=== PATIENT | female | born 1970 ===

== ENCOUNTER 2020-10-11 14:59 | Outpatient (REF) | payer MEDICAID, SELFPAY ==
[2020-10-11 16:55] LABS: Hematocrit 41.7 % (37-47); Hemoglobin 13.8 g/dl (12.0-16.0); Mean Corpuscular HGB Conc 33.1 g/dl (31.0-35.0); Mean Corpuscular Hemoglobin 27.3 pg (27.0-33.0); Mean Corpuscular Volume 82.6 fL (80-98); Mean Platelet Volume 11.8 fL (9.4-12.3); Platelet Count 184 X10*3/uL (160-400); Red Blood Count 5.05 X10*6/uL (4.20-5.50); Red Cell Distribution Width 13.2 % (11.0-16.0); White Blood Count 11.1 X10*3/uL (4.8-10.8)
[2020-10-11 17:44] LABS: HCG Quantitative < 2 mIU/mL; TSH reflex Free T4 0.73 uIU/mL (0.32-4.0)
[2020-10-12 06:41] LABS: CT PCR NOT DETECTED (Not Detect.); NG PCR NOT DETECTED (Not Detect.)
[2020-10-15 08:36] LABS: HPV mRNA E6/E7 rflx Not Detected (Not Detected)
== END 2020-10-11 15:00 | disposition home or self-care (01) ==
LOC: HO.LAB 14:59
PROVIDERS: PCP Internal Medicine; Visit Provider Obstetrics & Gynecology
DX: Z01.411 Encounter for gynecological examination (general) (routine) with abnormal findings (principal); Z11.51 Encounter for screening for human papillomavirus (HPV); N92.1 Excessive and frequent menstruation with irregular cycle
CPT/HCPCS: 36415; 84443; 84702; 85027; 87491; 87591; 87624; 88142

== ENCOUNTER 2020-10-25 14:44 | Outpatient (REF) | payer MEDICAID, SELFPAY ==
--- NOTE | ~2020-10-25 | US_ITS ---
EXAMINATION: PELVIC ULTRASOUND CLINICAL INFORMATION: Abnormal uterine and vaginal bleeding. History of endometrial ablation 5 years ago. COMPARISON: Previous pelvic ultrasound January 2016. TECHNIQUE: Transabdominal and transvaginal pelvic ultrasound was performed. Transvaginal exam was performed for better visualization of the uterus and ovaries. FINDINGS: The uterus is anteverted and measures 10 x 5 x 5.9 cm in dimension. Uterine echotexture is slightly heterogeneous. No focal uterine lesion is seen. Endometrial thickness measures 1.5 cm. There is a 1.2 x 0.9 x 1.3 cm cyst seen in the endometrium. There are nabothian cysts in the cervix. The right ovary measures 2.8 x 2.1 x 1.9 cm. There is a 2.1 x 1.8 x 1.4 cm right ovarian cyst. The left ovary is not seen. There is no fluid in the pelvis. US/US pelvic and transvaginal IMPRESSION: Heterogeneous-appearing uterus. No focal uterine lesion seen. Endometrial thickness is upper normal measuring 1.5 cm. 1.2 x 0.9 x 1.3 cm cyst in the endometrium.
== END 2020-10-25 14:45 | disposition home or self-care (01) ==
LOC: HO.US 14:44
PROVIDERS: Visit Provider Obstetrics & Gynecology
DX: N93.9 Abnormal uterine and vaginal bleeding, unspecified (principal)
CPT/HCPCS: 76830; 76856

== ENCOUNTER 2020-11-21 13:42 | Outpatient (REF) | payer MEDICAID, SELFPAY | END 2020-11-21 13:43 | disposition home or self-care (01) | LOC: HO.LAB 13:42 | PROVIDERS: Visit Provider Obstetrics & Gynecology | DX: N92.1 Excessive and frequent menstruation with irregular cycle (principal) | CPT/HCPCS: 58100; 88305 ==

== ENCOUNTER 2020-12-14 14:00 | Outpatient (REF) | payer MEDICAID, SELFPAY | END 2020-12-14 14:01 | disposition home or self-care (01) | LOC: HO.LAB 14:00 | PROVIDERS: Visit Provider Obstetrics & Gynecology | DX: N92.1 Excessive and frequent menstruation with irregular cycle (principal); F17.210 Nicotine dependence, cigarettes, uncomplicated | CPT/HCPCS: 58100; 88305 ==

== ENCOUNTER → 2020-12-28 11:13 | Outpatient (BNVA) | payer MEDICAID, SELFPAY | PROVIDERS: Visit Provider Obstetrics & Gynecology ==

== ENCOUNTER → 2021-08-24 12:07 | Outpatient (BNVA) | payer MEDICAID, SELFPAY | PROVIDERS: PCP Internal Medicine; Referring Provider Internal Medicine; Visit Provider Physician Assistant Surgical | DX: Z13.89 Encounter for screening for other disorder (principal) ==

== ENCOUNTER → 2021-08-28 08:50 | Outpatient (BNVA) | payer MEDICAID, SELFPAY | PROVIDERS: PCP Internal Medicine; Referring Provider Internal Medicine; Visit Provider Physician Assistant Surgical | DX: Z13.89 Encounter for screening for other disorder (principal) ==

== ENCOUNTER 2021-09-03 | Outpatient (REF) | payer MEDICAID, SELFPAY ==
[2021-09-04 14:58] LABS: H Pylori Breath Test Negative (Negative)
== END 2021-09-03 00:01 | disposition home or self-care (01) ==
LOC: HO.LNP
PROVIDERS: Visit Provider Physician Assistant Surgical
DX: E66.9 Obesity, unspecified (principal)
CPT/HCPCS: 83013

== ENCOUNTER → 2021-09-03 13:41 | Outpatient (BNVA) | payer MEDICAID, SELFPAY | PROVIDERS: PCP Internal Medicine; Referring Provider Internal Medicine; Visit Provider Physician Assistant Surgical | DX: E66.9 Obesity, unspecified (principal); Z11.0 Encounter for screening for intestinal infectious diseases; Z68.33 Body mass index [BMI] 33.0-33.9, adult | CPT/HCPCS: 83013; 99202; 99211 ==

== ENCOUNTER 2021-09-06 10:13 | Outpatient (REF) | payer MEDICAID, SELFPAY ==
--- NOTE | ~2021-09-06 | XR_ITS ---
EXAMINATION: XR CHEST CLINICAL INFORMATION: Obesity COMPARISON: Chest x-ray 02/14/2018 TECHNIQUE: 2 views of the chest were obtained. FINDINGS: Cardiac silhouette is normal in size. Lungs are well aerated. There is no lobar consolidation. No pleural effusion or pneumothorax. Surgical clips in the right axilla. Mild degenerative changes of the spine. XR/XR chest 2V IMPRESSION: No acute pulmonary pathology.
[2021-09-06 10:56] LABS: MANUAL DIFF FLAG NO
--- NOTE | 2021-09-06 11:04 | ECG_ITS ---
Test Reason : OBESITY Blood Pressure : / mmHG Vent. Rate : 065 BPM Atrial Rate : 065 BPM P-R Int : 150 ms QRS Dur : 070 ms QT Int : 364 ms P-R-T Axes : 057 042 039 degrees QTc Int : 378 ms Normal sinus rhythm Normal ECG When compared with ECG of 16-MAR-2007 10:42, No significant change was found Referred By: Des Fall Electronically Signed By:CLARISSA BROTHERS
[2021-09-06 11:36] LABS: Basophils Percent Auto 0.3 % (0-2); Eosinophils Absolute Auto 0.1 X10*3/uL (0.0-0.4); Eosinophils Percent Auto 1.2 % (0-4); Hematocrit 45.1 % (37.0-47.0); Hemoglobin 14.5 g/dl (12.0-16.0); Imm Gran Abs Auto 0.03 X10*3/uL (0.00-0.03); Imm Gran Pct Auto 0.3 % (0.0-0.4); Lymphocytes Percent Auto 20.8 % (20-40); Mean Corpuscular HGB Conc 32.2 g/dl (31.0-35.0); Mean Corpuscular Volume 83.8 fL (80.0-98.0); Mean Platelet Volume 11.1 fL (9.4-12.3); Monocytes Absolute Auto 0.7 X10*3/uL (0.1-1.2); Monocytes Percent Auto 7.5 % (2-11); Neutrophils Absolute Auto 6.8 x10*3/uL (2.0-8.3); Neutrophils Percent Auto 69.9 % (45-73); Platelet Count 206 X10*3/uL (160-400); Red Blood Count 5.38 X10*6/uL (4.20-5.50); Red Cell Distribution Width 13.1 % (11.0-16.0); White Blood Count 9.8 X10*3/uL (4.8-10.8)
[2021-09-06 11:41] LABS: Estimated Average Glucose 212 mg/dL
[2021-09-06 11:46] LABS: Alanine Aminotransferase 32 U/L (0-31); Albumin Level 4.2 g/dL (3.5-5.0); Alkaline Phosphatase 107 U/L (39-117); Anion Gap 11 (12-20); Aspartate Amino Transferase 24 U/L (5-31); Bilirubin Total 0.4 mg/dL (0.0-1.0); Blood Urea Nitrogen 13 mg/dL (9-16); C Reactive Protein 0.39 mg/dL (< or = 0.50); Calcium 10.1 mg/dL (8.4-10.2); Carbon Dioxide 31 mmol/L (22-29); Chloride 103 mmol/L (96-108); Cholesterol 197 mg/dL; Estimated Glomerular Filt Rate > 60; Glucose Random 127 mg/dL (60-115); HDL Cholesterol 52 mg/dL; Iron 97 mcg/dL (30-160); LDL Cholesterol Calculated 123 mg/dl; Percent Iron Saturation 27 % (15-50); Potassium 4.5 mmol/L (3.3-5.1); Sodium 140 mmol/L (135-145); Total Iron Binding Capacity 355 mcg/dL (228-428); Triglycerides 114 mg/dL; Unsaturated Iron Binding 258 ug/dL
[2021-09-06 12:03] LABS: Ferritin 174 ng/mL (10-250); Insulin 10 uU/mL (2-29); TSH reflex Free T4 0.69 uIU/mL (0.32-4.0); Vitamin D 25-OH Total 24.3 ng/mL (>30)
[2021-09-06 12:17] LABS: Folate 14.4 ng/mL (> or = 4.0); Vitamin B12 417 pg/mL (200-900)
[2021-09-07 13:02] LABS: Calcium (PTHI) 9.8 mg/dL (8.6-10.4); PTHI 54 pg/mL (16-77)
[2021-09-11 06:11] LABS: Zinc 88 mcg/dL (60-130)
[2021-09-12 09:57] LABS: Vitamin A 48 mcg/dL (38-98)
[2021-09-12 17:01] LABS: Vitamin B1 8 nmol/L (8-30)
== END 2021-09-06 10:14 | disposition home or self-care (01) ==
LOC: HO.XRAY 10:13
PROVIDERS: Visit Provider Physician Assistant Surgical
DX: E66.9 Obesity, unspecified (principal)
CPT/HCPCS: 36415; 71046; 80053; 80061; 82306; 82607; 82728; 82746; 83036; 83525; 83540; 83970; 84425; 84443; 84590; 84630; 85025; 86140; 93005

== ENCOUNTER → 2021-09-11 10:07 | Outpatient (BNVA) | payer OTHER, SELFPAY | PROVIDERS: PCP Internal Medicine; Visit Provider Counselor Mental Health | DX: F33.1 Major depressive disorder, recurrent, moderate (principal); F41.1 Generalized anxiety disorder | CPT/HCPCS: 90791 ==

== ENCOUNTER → 2021-09-24 08:18 | Outpatient (BNVA) | payer OTHER, SELFPAY | PROVIDERS: PCP Internal Medicine; Visit Provider Surgery | DX: Z13.89 Encounter for screening for other disorder (principal) ==

== ENCOUNTER → 2021-10-01 12:42 | Outpatient (BNVA) | payer OTHER, SELFPAY | PROVIDERS: PCP Internal Medicine; Visit Provider Counselor Mental Health | DX: F33.1 Major depressive disorder, recurrent, moderate (principal); F41.1 Generalized anxiety disorder | CPT/HCPCS: 90834 ==

== ENCOUNTER → 2021-10-09 09:35 | Outpatient (BNVA) | payer MEDICAID, SELFPAY | PROVIDERS: PCP Internal Medicine; Referring Provider Internal Medicine; Visit Provider Dietitian, Registered | DX: E66.9 Obesity, unspecified (principal); Z68.34 Body mass index [BMI] 34.0-34.9, adult | CPT/HCPCS: 97802 ==

== ENCOUNTER → 2021-10-15 13:38 | Outpatient (BNVA) | payer OTHER, MEDICAID, SELFPAY | PROVIDERS: PCP Internal Medicine; Referring Provider Internal Medicine; Visit Provider Counselor Mental Health | DX: F33.1 Major depressive disorder, recurrent, moderate (principal); F41.1 Generalized anxiety disorder; F50.81 Binge eating disorder | CPT/HCPCS: 90834 ==

== ENCOUNTER 2021-10-22 07:56 | Outpatient (REF) | payer MEDICAID, SELFPAY ==
--- NOTE | ~2021-10-22 | US_ITS ---
EXAMINATION: US COMPLETE ABDOMEN WITH LIVER ELASTOGRAPHY CLINICAL INFORMATION: Obesity COMPARISON: Previous CT of the abdomen and pelvis December 2017 and abdominal ultrasound February 2015 TECHNIQUE: Real-time imaging of the abdominal viscera. Noninvasive ultrasound liver fibrosis assessment is performed using Ramon ElastPQ point quantification shear wave elastography (2D-SWE) with a C5-2 MHz transducer. Multiple elastography samples are obtained. FINDINGS: PANCREAS: Normal. The visualized pancreatic head and body are normal in appearance. The remainder of the pancreas is obscured from visualization by the overlying bowel gas. ABDOMINAL AORTA: The proximal, middle, and distal aortic segments are normal in caliber. INFERIOR VENA CAVA: Visualized portions are normal. LIVER: Liver echotexture is increased The liver demonstrates normal size, and contour. No focal lesion or intrahepatic biliary duct dilatation. The right lobe measures 16 cm in length. The left lobe measures 15 cm in length. Portal flow is normal/hepatopedal Shear wave liver elastography median stiffness is 1.7 m/s (reference: normal median stiffness is 1.3 m/s or less). IQR/median stiffness to assess sampling precision is 0.06 (reference: good quality data set is IQR/median stiffness of 0.15 or less). GALLBLADDER: Wall echo shadow complex suggestive of contracted gallbladder filled with gallstones COMMON BILE DUCT: Normal in caliber measuring 0.3 cm in diameter. RIGHT KIDNEY: Normal. No hydronephrosis. No renal calculi or focal parenchymal lesions. The kidney measures 11 cm in maximum dimension. LEFT KIDNEY: 1.2 cm cyst in the upper to midpole. No hydronephrosis. No renal calculi or mass. The kidney measures 11.4 cm in maximum dimension. SPLEEN: Normal. The spleen measures 10.3 cm in maximum dimension. FREE FLUID: None. US/US abdomen comp w elastography IMPRESSION: 1. Impression: Echogenic liver. While this shadow complex suggestive of a gallbladder filled with gallstones. Small left renal cyst. 2. Liver elastography: Adequate liver sampling. Slightly elevated liver stiffness. Suggestive of compensated advanced chronic liver disease but need further test for confirmation. REFERENCE: Society of Radiologists in Ultrasound Liver Stiffness Thresholds (2020): LIVER STIFFNESS THRESHOLDS: *Liver Stiffness equal or less than 1.3 m/s: High probability of being normal. *Liver Stiffness less than 1.7 m/s: In the absence of other known clinical signs, rules out compensated advanced chronic liver disease. *Liver Stiffness 1.7-2.1 m/s: Suggestive of compensated advanced chronic liver disease but need further test for confirmation. *Liver Stiffness over 2.1 m/s: Rules in compensated advanced chronic liver disease. *Liver Stiffness over 2.4 m/s: Suggestive of clinically significant portal hypertension. QUALITY OF DATA SET: *IQR/Median value equal or less than 0.15 implies a quality data set. *IQR/Median value over 0.15 implies a poor quality data set. SIGNIFICANT CHANGE FROM PRIOR EXAM: Significant change if liver stiffness measurement is 10% or greater from prior exam. OTHER CONSIDERATIONS: The stage of liver fibrosis may be overestimated in the setting of acute hepatitis, liver inflammation, elevated liver function tests, hepatic vascular congestion, obstructive cholestasis, non-fasting state, and infiltrative diseases such as amyloidosis and lymphoma. In some patients with NAFLD, the liver stiffness thresholds for compensated advanced chronic liver disease may be lower. In causes other than viral hepatitis and NAFLD, liver stiffness thresholds are not well established.
--- NOTE | ~2021-10-22 | FL_ITS ---
EXAMINATION: XR FLUOROSCOPY UPPER GI WITH AIR CLINICAL INFORMATION: Preop. Abdominal pain. COMPARISON: None TECHNIQUE: Routine double-contrast upper GI exam was performed in upright and lying position. FINDINGS: Following oral administration of thick barium and effervescent granules, there is normal propagation of bolus from the oral cavity through the pharynx, esophagus into stomach without any evidence of obstruction, narrowing or stricture. On placing patient supine and prone lying, the course, caliber and peristalsis of the stomach is normal. The mucosal pattern of the stomach and the duodenum is normal. There is mild gastroesophageal reflux without hiatal hernia. FLUOROSCOPY TIME: 2.4 minutes DOSE AREA PRODUCT: 39.735 uGy-m2 (microgray-meter squared) FL/FL upper GI w air IMPRESSION: Mild gastroesophageal reflux without hiatal hernia. The rest of the upper GI exam is unremarkable.
== END 2021-10-22 07:57 | disposition home or self-care (01) ==
LOC: HO.US 07:56
PROVIDERS: Visit Provider Surgery
DX: E66.9 Obesity, unspecified (principal)
CPT/HCPCS: 74246; 76705; 76981

== ENCOUNTER → 2021-10-29 12:47 | Outpatient (BNVA) | payer OTHER, MEDICAID, SELFPAY | PROVIDERS: PCP Internal Medicine; Visit Provider Counselor Mental Health | DX: F33.1 Major depressive disorder, recurrent, moderate (principal); F41.1 Generalized anxiety disorder | CPT/HCPCS: 90834 ==

== ENCOUNTER 2021-11-06 14:36 | Outpatient (REF) | payer MEDICAID, SELFPAY ==
[2021-11-06 15:20] LABS: MANUAL DIFF FLAG NO
[2021-11-06 15:41] LABS: Basophils Percent Auto 0.4 % (0-2); Eosinophils Absolute Auto 0.2 X10*3/uL (0.0-0.4); Eosinophils Percent Auto 1.7 % (0-4); Hematocrit 43.4 % (37.0-47.0); Hemoglobin 14.3 g/dl (12.0-16.0); Imm Gran Abs Auto 0.03 X10*3/uL (0.00-0.03); Imm Gran Pct Auto 0.3 % (0.0-0.4); Lymphocytes Absolute Auto 1.9 X10*3/uL (1.2-4.9); Lymphocytes Percent Auto 20.6 % (20-40); Mean Corpuscular HGB Conc 32.9 g/dl (31.0-35.0); Mean Corpuscular Hemoglobin 27.7 pg (27.0-33.0); Mean Corpuscular Volume 83.9 fL (80.0-98.0); Mean Platelet Volume 11.4 fL (9.4-12.3); Monocytes Absolute Auto 0.8 X10*3/uL (0.1-1.2); Monocytes Percent Auto 8.8 % (2-11); Neutrophils Absolute Auto 6.4 x10*3/uL (2.0-8.3); Neutrophils Percent Auto 68.2 % (45-73); Platelet Count 170 X10*3/uL (160-400); Red Blood Count 5.17 X10*6/uL (4.20-5.50); Red Cell Distribution Width 13.3 % (11.0-16.0); White Blood Count 9.3 X10*3/uL (4.8-10.8)
[2021-11-06 15:48] LABS: Prothrombin Time 11.6 SEC (10.0-13.1)
[2021-11-06 15:51] LABS: Partial Thromboplastin Time 37.2 SEC (24.1-38.0)
[2021-11-06 16:05] LABS: Alanine Aminotransferase 34 U/L (0-31); Albumin Level 4.2 g/dL (3.5-5.0); Alkaline Phosphatase 100 U/L (39-117); Anion Gap 10 (12-20); Aspartate Amino Transferase 30 U/L (5-31); Bilirubin Total 0.4 mg/dL (0.0-1.0); Blood Urea Nitrogen 9 mg/dL (9-16); Calcium 9.1 mg/dL (8.4-10.2); Carbon Dioxide 29 mmol/L (22-29); Chloride 108 mmol/L (96-108); Estimated Glomerular Filt Rate > 60; Glucose Random 113 mg/dL (60-115); Potassium 4.4 mmol/L (3.3-5.1); Sodium 143 mmol/L (135-145); Total Protein 6.7 g/dL (6.5-8.0)
== END 2021-11-06 14:37 | disposition home or self-care (01) ==
LOC: HO.LAB 14:36
PROVIDERS: Visit Provider Surgery
DX: K80.20 Calculus of gallbladder without cholecystitis without obstruction (principal)
CPT/HCPCS: 36415; 80053; 85025; 85610; 85730

== ENCOUNTER 2021-11-07 08:30 | Day surgery (SDC) | payer MEDICAID, SELFPAY ==
[2021-11-07] VITALS (15 sets, daily range): BP systolic 120–161; BP diastolic 69–93; PULSE 62–81; RESP 15–22; TEMP 35.9–36.5; O2SAT 90–97; BMI 33.0
--- NOTE | 2021-11-07 08:44 | HO.ANESPROP2 ---
HPI - Anesthesia Eval Consult details Narrative: 51 yo female patient for laparoscopic cholecystectomy PMFSH Active Problems Active Problems: All Active Problems (Updated 11/05/21 @ 13:13 by Donavan Yao MD) Cholelithiasis (Acute) BMI 33.0-33.9,adult (Acute) Asthma (Acute) Hyperlipidemia (Acute) Breast cancer (Acute) Depression (Acute) HTN (hypertension) (Acute) BMI 34.0-34.9,adult (Acute) Generalized anxiety disorder (Acute) Major depressive disorder, recurrent, moderate (Acute) Diabetes (Acute) Obesity (BMI 30-39.9) (Acute) Metrorrhagia (Acute) Well woman exam (Acute) Denies CIRILO but snores. No sleep study Past Medical History Medical History Anxiety Family History Family History Mother Diabetes Heart problem Father Diabetes Son Diabetes Family history of problems with anesthesia: No Surgical History Surgical History (Updated 11/07/21 @ 09:38 by Ester Crowell MD) History of dilatation and curettage Tubal ligation status History of Problems with Anesthesia: No Social History Social History (Updated 11/07/21 @ 08:56 by Ester Crowell MD) Alcohol intake: former Patient Tobacco Use Status: Current everyday Tobacco user Tobacco use type: Cigarette Cigarettes Per Day: 4 Smoked in Last 30 Days: Yes Use of substances other than those prescribed or required for medical reasons: No Substance Use Type: Marijuana Are you DNR?: No Advance Directives: No Advance Directives Information Provided: Yes Recently lost weight without trying: Yes How much weight loss: 2-13 pounds Nutrition Risks: No Nutritional Risk Patient : No Gender identity: Female Meds Allergies Allergy/AdvReac Type Severity Reaction Status Date / Time No Known Allergies Allergy Verified 11/05/21 13:13 Home Medications Medication Instructions Recorded Confirmed Last Taken Type amlodipine 5 mg tablet 5 mg PO DAILY 10/11/20 11/05/21 Unknown History metformin 500 mg tablet 500 mg PO BID 10/11/20 11/05/21 Unknown History sertraline 100 mg tablet 100 mg PO DAILY 10/11/20 11/05/21 Unknown History fluticasone propionate 250 1 inh inhalation Q12H 09/24/21 11/05/21 Unknown History mcg/actuation blister powder for inhalation (Flovent Diskus) Exam Exam Date and Time: November 07, 2021 0844 Height,Weight and Vital Signs: Height 5 ft 2 in Weight 82.1 kg Vital Signs Temp Pulse Resp BP Pulse Ox O2 Del Method 11/07/21 09:13 96.7 F L 72 16 136/84 96 Room Air Pertinent Lab Results Pertinent Lab Results: Laboratory Tests 11/06/21 15:15 Blood Type O Positive Antibody Screen NEGATIVE POC 136 Airway Mallampati Class: II TM Dist: >3cm Neck ROM: Full Denture: Upper Loose/Missing/Broken Teeth: Yes (Only 5 teeth bottom- a couple broken) Heart: RRR Lungs: CTAB. No wheezes Assessment and Plan Assessment Anesthesia Assessment: Anesthesia Plan Discussed and Chart Reviewed Final Anesthetic Review Family History of Problems with Anesthesia: No History of Problems with Anesthesia: No NPO: Yes ASA Class: III Final Preanesthetic Review: No Changes in Pt Med Stat, Meds/Allgs Chart Reviewed, Consent Obtained/Reviewed and Anes Risks/Benef Reviewed Patient Risk: Intermediate Procedure Risk: Low Assessment/Block/Sedation in SS: Assess/Block/Sedation-SS Anesthetic Plan Anesthetic Plan: GA Disposition: Standard PACU
[2021-11-07] MEDS: Lactated Ringers 1,000 ML 100 ML IVCONT (09:19)
[2021-11-07 09:42] LABS: Glucose, Whole Blood 136 mg/dL (60-115)
--- NOTE | 2021-11-07 11:21 | MHC.SHP ---
Pre-Procedural Eval Section A Date of Service: 11/07/21 The patient is an INPATIENT: No The History & Physical has been completed within 30 days and I have reviewed it.: Yes Section B Chief Complaint: cholecystitis Relevant Family History (Specify if Yes): No Relevant Social History: None Present Medications: None Medical History: No relevant PMH History of Previous Operations: No relevant previous surgery Allergies: Allergies Allergy/AdvReac Type Severity Reaction Status Date / Time No Known Allergies Allergy Verified 11/05/21 13:13 Review of Systems Sugical H&P ROS: Negative: Constitution, Cardiovascular, Respiratory, Neurological, Psychiatric, Hem-Onc, Allergic/Immunologic, Genitourinary, Musculoskeletal, Integumentary, Endocrine and Eyes/Ears/Nose/Throat and Yes, Specify: Gastrointestinal (right side abdominal pain) Exam Surgical H&P Exam: Normal: HEENT, Normal: Heart, Normal: Lungs, Normal: Extremities, Normal: Abdomen, Normal: Skin and Normal: Neurological Plan Diagnosis/Plan: Unchanged (Laparoscopic cholecystectomy for cholelithiasis. Risks of CBD injury, bile leak, CBD stones, bleeding and infection were discussed with the patient and she is in agreement with the plan.) I have reviewed the history and physical and performed a pertinent physical examination on my patient. No changes have occurred unless specified.
--- NOTE | 2021-11-07 11:22 | PM.OP ---
Brief Operative Note Date of Service: 11/07/21 Pre-op diagnosis: Cholelithiasis Post-op diagnosis: same Procedure: PROCEDURE DATE: 11/07/2021 PREOPERATIVE DIAGNOSIS: Symptomatic cholelithiasis, obesity and associated comorbidities including hypertension, hyperlipidemia, anxiety, depression, non-insulin dependent diabetes, asthma POSTOPERATIVE DIAGNOSIS: Same as above. PROCEDURE: Laparoscopic cholecystectomy Surgeon: Ubaldo Yao M.D., Ph.D. Wildlife Conservation Officer: Torri Wick PA-C Anesthesia: General endotracheal anesthesia Estimated blood loss: Minimal FINDINGS AND PROCEDURE: OPERATIVE INDICATIONS: The patient is a 51 year old female known to me who was initially seen in my office for evaluation for refractory morbid obesity. During the preoperative workup, the patient was found to have extensive cholelithiasis which appears to be symptomatic. I recommended cholecystectomy. Risks and complications of the surgery were discussed with the patient in advance, particularly the postoperative bleeding, infection, DVT or PE, bile leak, major bile duct injury that may require additional surgical intervention, cardiac, pulmonary or renal complications among others. The patient understood the risks and was in agreement with the plan. PROCEDURE: After informed consent was obtained by the patient, the patient was transferred to the Operating Room and was placed in the supine position. The patient was given preoperative antibiotics and after successful induction of general anesthesia, pneumatic compression devices were placed. The patient was then prepped and draped in the usual sterile manner and abdominal access was established with Bertram technique. The abdomen was insufflated with C02 to a pressure of 15 mmHg. A 5 mm Versi-step port was placed, slightly to the right and superior from the umbilicus. The 5 mm camera was introduced. We inspected the area where the port had been placed and there was no injury. The patient was then placed initially in a steep reverse Trendelenburg position and three additional ports were placed, specifically a 12 mm Versi-step port just to the right of the midline below the xiphoid process and two 5 mm Versi-step ports at the right upper quadrant and right flank. 1% lidocaine was used to infiltrate all skin incisions and fascial defects. At that point the patient was placed in a steep reverse Trendelenburg position tilted to the left side. The gallbladder was retracted cephalad and laterally. ? PLEASE REVIEW TO INCLUDE THIS SENTENCE: There were adhesions between the omentum and the gallbladder wall that were taken down. The peritoneal attachments of the gallbladder at the triangle of Calot posteriorly and anteriorly were taken down. The cystic duct and artery were both seen. They were completely dissected free, skeletonized all the way to the infundibulum of the gallbladder . In a similar fashion we also cleaned the liver bed just behind the cystic artery to make sure there was no additional structures in this area. Once we confirmed that both structures were entering into the gallbladder and there were no other structures in the area, they were both clipped with two clips proximally, one distally and were cut in- between. We then using the electrocautery we slowly took down the gallbladder from the liver bed. Small areas of bleeding from the liver parenchyma were controlled with the cautery. After the gallbladder was completely detached from the liver bed, it was placed in an EndoCatch bag and was removed without difficulty from the xiphoid port. We then inspected the clips at the cystic duct and artery and were both in place. There was no active bleeding from the liver bed. A smal piece of Surgicel was placed in the liver bed and will be left there. At that point the patient was placed in supine. position, we deflated the abdomen and we removed all ports under direct vision and no bleeding was noted from any of the port sites. The fascia of the 12 mm port was closed using a #1 Polysorb suture. 60cc 0.5% Marcaine and 1% Lidocaine plain were used to infiltrate the fascial closure as well as all skin incisions. The wounds were irrigated with saline mixed with antibiotic solution and then the skin was closed with 4-0 Maxon subcuticular sutures antibiotic-coated. Steri-strips and OpSites were used to cover all incisions. The patient extubated and was transferred in stable condition to the Recovery Room for further care. I was present and performed all steps of the procedure. Ms. Wick was the sampler first. There were no residents to assist with this case. Ubaldo Yao M.D., Ph.D., F.A.C.S. Surgeon: Donavan Yao MD Anesthesia: GETA, local and other (TAP block) Was an Wildlife Conservation Officer used for this Procedure?: No Wildlife Conservation Officer: Torri Wick Estimated blood loss (mL): 10 Urine output (mL): 0 (No [place] to record) Pathology: other (Gallbladder) Condition: stable Disposition: PACU
[2021-11-07] MEDS: oxyCODONE HCl Immed Release 5 MG TABLET PO (14:05)
[2021-11-07] MEDS: fentaNYL citrate/PF 100 MCG/2 ML VIAL 25 MCG IVPUSH ×2 (14:48→14:55)
== END 2021-11-07 16:16 | disposition home or self-care (01) ==
PROVIDERS: Visit Provider Surgery
PROC: 0FT44ZZ Resection of Gallbladder, Percutaneous Endoscopic Approach (ICD-10-PCS; CPT 47562; principal; 2021-11-07 10:10)
DX: K80.10 Calculus of gallbladder with chronic cholecystitis without obstruction (principal); K82.8 Other specified diseases of gallbladder; I10 Essential (primary) hypertension; E78.5 Hyperlipidemia, unspecified; J45.909 Unspecified asthma, uncomplicated; F41.8 Other specified anxiety disorders; Z79.51 Long term (current) use of inhaled steroids; Z79.899 Other long term (current) drug therapy; Z85.3 Personal history of malignant neoplasm of breast; F17.210 Nicotine dependence, cigarettes, uncomplicated; F12.90 Cannabis use, unspecified, uncomplicated; Z98.51 Tubal ligation status
CPT/HCPCS: 47562; 36415; 80053; 82947; 85025; 85610; 85730; 86850; 86900; 86901; 88304; C9088; J0690; J1100; J2250; J2405; J2550; J2795; J3010

== ENCOUNTER → 2021-11-20 16:00 | Outpatient (BNVA) | payer MEDICAID, SELFPAY | PROVIDERS: Visit Provider Dietitian, Registered | DX: E66.9 Obesity, unspecified (principal); Z71.3 Dietary counseling and surveillance | CPT/HCPCS: 97803 ==

== ENCOUNTER → 2022-09-18 10:42 | Outpatient (BNVA) | payer MEDICAID, SELFPAY | PROVIDERS: PCP Internal Medicine; Visit Provider Nurse Practitioner Family | DX: Z12.11 Encounter for screening for malignant neoplasm of colon (principal); K21.9 Gastro-esophageal reflux disease without esophagitis; K59.1 Functional diarrhea; R14.0 Abdominal distension (gaseous) | CPT/HCPCS: 99202 ==

== ENCOUNTER → 2022-10-21 13:36 | Outpatient (BNVA) | payer MEDICAID, SELFPAY | PROVIDERS: PCP Internal Medicine; Visit Provider Obstetrics & Gynecology ==

== ENCOUNTER → 2022-10-25 11:43 | Outpatient (BNVA) | payer MEDICAID, SELFPAY | PROVIDERS: PCP Internal Medicine; Visit Provider Nurse Practitioner Family | DX: Z12.11 Encounter for screening for malignant neoplasm of colon (principal); K21.9 Gastro-esophageal reflux disease without esophagitis; K59.1 Functional diarrhea; R14.0 Abdominal distension (gaseous) | CPT/HCPCS: 99212 ==

== ENCOUNTER 2022-11-13 23:01 | Emergency (ER) | payer MEDICAID, SELFPAY ==
[2022-11-13 23:14] VITALS: BP 149/105; PULSE 107; RESP 22; TEMP 36.8; O2SAT 98; BMI 29.4
--- NOTE | 2022-11-13 23:33 | ED.ABDPAIN ---
HPI - Abdominal Pain General Chief Complaint: Abdominal Pain Stated Complaint: vomiting Time Seen by Provider: 11/13/22 23:29 Source: patient Mode of arrival: ambulatory Limitations: no limitations History of Present Illness HPI narrative: Patient with history of GERD s/p cholecystectomy came here for nausea vomiting just prior to arrival vomited multiple times bilious had 1 loose bowel movement in the ER complaining of diffuse upper abdominal pain no fever no chills no urinary symptoms blood pressure on arrival was 149/105 pulse rate 107 patient forgot her blood pressure. medication today Related Data Home Medications Medication Instructions Recorded Confirmed amlodipine 5 mg tablet 5 mg PO DAILY 10/11/20 11/05/21 metformin 500 mg tablet 500 mg PO BID 10/11/20 11/05/21 sertraline 100 mg tablet 100 mg PO DAILY 10/11/20 11/05/21 fluticasone propionate 250 1 inh inhalation Q12H 09/24/21 11/05/21 mcg/actuation blister powder for inhalation (Flovent Diskus) Previous Rx's Medication Instructions Recorded cholecalciferol (vitamin D3) 125 125 mcg PO DAILY #30 caps 09/06/21 mcg (5,000 unit) capsule bisacodyl 5 mg tablet,delayed 10 mg PO ONCE 1 day #2 tabs 09/18/22 release (Dulcolax (bisacodyl)) omeprazole 20 mg capsule,delayed 20 mg PO DAILY #30 caps 09/18/22 release polyethylene glycol 3350 17 238 g PO ONCE #238 grams 09/18/22 gram/dose oral powder (Miralax) simethicone 125 mg capsule (Gas 125 mg PO TID-QID PRN abdominal 09/18/22 Relief (simethicone)) distention #120 caps ondansetron 4 mg disintegrating 4 mg PO Q6-8H PRN nausea and 11/14/22 tablet vomiting #7 tabs Allergies Allergy/AdvReac Type Severity Reaction Status Date / Time No Known Allergies Allergy Verified 10/25/22 11:47 Review of Systems Review of Systems Yes all other systems are reviewed and are negative PENDING SALE TO [facility] Past Medical History Medical History Anxiety Asthma Breast cancer Depression HTN (hypertension) Hyperlipidemia Surgical History History of dilatation and curettage Hx laparoscopic cholecystectomy Tubal ligation status Family History Family History Mother Diabetes Heart problem Father Diabetes Son Diabetes Social History Social History Alcohol intake: former Patient Tobacco Use Status: Current everyday Tobacco user Tobacco use type: Cigarette Cigarettes Per Day: 1 Substance Use Type: Marijuana Advance Directives: No Advance Directives Information Provided: No Gender identity: Female Physical Exam ED Vital Signs: Vital Signs - 24 hr 11/13/22 23:14 11/13/22 23:56 Temperature 98.3 F 98.2 F Pulse Rate 107 H 91 Respiratory Rate 22 H 16 Blood Pressure 149/105 H 118/55 L Pulse Oximetry 98 956 H Oxygen Delivery Method Room Air Room Air BMI result Body Mass Index 29.4 Appearance: Alert. Oriented X3. No acute distress. Eyes: PERRLA, No Nystagmus ENT: Pharynx normal. Oral Mucosa moist Neck: Normal inspection. Neck supple. CVS: Normal heart rate and rhythm. Pulses normal. Respiratory: No respiratory distress. Equal air entry bilateral, no wheezing/rales/rhonchi Abdomen: Soft, diffuse upper abdominal tenderness no rebound tenderness or guarding, Bowel sounds are present, no mass palpable, no CVA tenderness Skin: Skin warm and dry. Normal skin color. Normal skin turgor. Extremities: No lower extremity edema. No calf tenderness Neuro: Oriented X 3. No motor deficit. No sensory deficit.No cerebellar signs , cranial nerves II-XII intact Medical Decision Making Medical Decision Making MDM Narrative: Patient with nonspecific abdominal pain CT scan negative for acute labs are stable likely gastritis/viral syndrome taking p.o. fluids discharge patient home Differential Diagnosis Acute pancreatitis/SBO/diverticulitis/gastroenteritis Lab Data [facility] Lab Attestation statement: I reviewed the patient's lab results. 11/13/22 23:31 11/13/22 23:31 Labs: Lab Results 11/13/22 11/13/22 11/13/22 Range/Units 23:31 23:31 23:59 WBC 13.2 H (4.8-10.8) X10*3/uL RBC 6.00 H (4.20-5.50) X10*6/uL Hgb 16.0 (12.0-16.0) g/dl Hct 48.4 H (37.0-47.0) % MCV 80.7 (80.0-98.0) fL MCH 26.7 L (27.0-33.0) pg MCHC 33.1 (31.0-35.0) g/dl RDW 13.1 (11.0-16.0) % Plt Count 184 (160-400) X10*3/uL MPV 10.7 (9.4-12.3) fL Absolute Nucleated RBC 0.000 (0.0-0.012) X10*3/uL Nucleated RBC % (auto) 0.0 (0.0-0.2) /100WBC Sodium 145 (135-145) mmol/L Potassium 3.4 D (3.3-5.1) mmol/L Chloride 106 (96-108) mmol/L Carbon Dioxide 27 (22-29) mmol/L Anion Gap 15 (12-20) BUN 15 (9-16) mg/dL Creatinine 0.98 (0.5-1.4) mg/dL Estim Creat Clear Calc 63.5 Estimated GFR 60 Random Glucose 151 H (60-115) mg/dL Calcium 10.7 H D (8.4-10.2) mg/dL Total Bilirubin 0.6 (0.0-1.0) mg/dL Direct Bilirubin 0.2 (0.0-0.5) mg/dL AST 17 (5-31) U/L ALT 13 (0-31) U/L Alkaline Phosphatase 106 (39-117) U/L Total Protein 8.2 H (6.5-8.0) g/dL Albumin 4.7 (3.5-5.0) g/dL Lipase 43 (8-78) U/L Urine Color Dark Yellow Urine Appearance Turbid Urine pH 5.0 (5.0-9.0) Ur Specific [place] >= 1.030 H (1.005-1.025) Urine Protein 30 (1+) H (Neg-Trace) mg/dL Urine Glucose (UA) Negative (Negative) mg/dL Urine Ketones 15 (Negative) mg/dL Urine Blood Negative (Negative) Urine Nitrite Negative (Negative) Ur Leukocyte Esterase Trace H (Negative) Urine RBC 3-5 H (0-2) /HPF Urine WBC 0-5 (0-5) /HPF Ur Squamous Epith Cells 6-10 (0-2) /HPF Other Crystals Present Urine Bacteria 3+ (None Seen) Hyaline Casts 0-2 (0-2) /LPF Urine Test (NEGATIVE) 11/13/22 Range/Units 23:59 WBC (4.8-10.8) X10*3/uL RBC (4.20-5.50) X10*6/uL Hgb (12.0-16.0) g/dl Hct (37.0-47.0) % MCV (80.0-98.0) fL MCH (27.0-33.0) pg MCHC (31.0-35.0) g/dl RDW (11.0-16.0) % Plt Count (160-400) X10*3/uL MPV (9.4-12.3) fL Absolute Nucleated RBC (0.0-0.012) X10*3/uL Nucleated RBC % (auto) (0.0-0.2) /100WBC Sodium (135-145) mmol/L Potassium (3.3-5.1) mmol/L Chloride (96-108) mmol/L Carbon Dioxide (22-29) mmol/L Anion Gap (12-20) BUN (9-16) mg/dL Creatinine (0.5-1.4) mg/dL Estim Creat Clear Calc Estimated GFR Random Glucose (60-115) mg/dL Calcium (8.4-10.2) mg/dL Total Bilirubin (0.0-1.0) mg/dL Direct Bilirubin (0.0-0.5) mg/dL AST (5-31) U/L ALT (0-31) U/L Alkaline Phosphatase (39-117) U/L Total Protein (6.5-8.0) g/dL Albumin (3.5-5.0) g/dL Lipase (8-78) U/L Urine Color Urine Appearance Urine pH (5.0-9.0) Ur Specific [place] (1.005-1.025) Urine Protein (Neg-Trace) mg/dL Urine Glucose (UA) (Negative) mg/dL Urine Ketones (Negative) mg/dL Urine Blood (Negative) Urine Nitrite (Negative) Ur Leukocyte Esterase (Negative) Urine RBC (0-2) /HPF Urine WBC (0-5) /HPF Ur Squamous Epith Cells (0-2) /HPF Other Crystals Urine Bacteria (None Seen) Hyaline Casts (0-2) /LPF Urine Test NEGATIVE (NEGATIVE) Medications Administered Discontinued Medications Generic Name Dose Route Start Last Admin Trade Name Freq PRN Reason Stop Dose Admin Sodium Chloride 1,000 mls @ 999 mls/hr 11/13/22 23:37 11/14/22 00:00 Ns IV 11/14/22 00:37 999 mls/hr .Q1H1M ONE Administration Ondansetron HCl 4 mg 11/13/22 23:29 11/13/22 23:36 Ondansetron Hcl 4 Mg/2 Ml Vial IVPUSH 11/13/22 23:30 4 mg ONCE ONE Administration Discharge Plan Discharge Clinical Impression: Gastroenteritis Patient Disposition: Home, Self-Care Instructions: Gastroenteritis (ED) Additional Instructions: Drink plenty of fluids Medicine for nausea as prescribed Follow with PCP as needed Prescriptions: New ondansetron 4 mg tablet,disintegrating 4 mg PO Q6-8H PRN (Reason: nausea and vomiting) Qty: 7 0RF No Action cholecalciferol (vitamin D3) 125 mcg (5,000 unit) capsule 125 mcg PO DAILY Qty: 30 3RF amlodipine 5 mg tablet 5 mg PO DAILY sertraline 100 mg tablet 100 mg PO DAILY metformin 500 mg tablet 500 mg PO BID Flovent Diskus 250 mcg/actuation blister with device 1 inh inhalation Q12H bisacodyl [Dulcolax (bisacodyl)] 5 mg tablet,delayed release (DR/EC) 10 mg PO ONCE 1 Days Qty: 2 0RF Rx Instructions: take 2 tabs at noon the day before your colonoscopy simethicone [Gas Relief (simethicone)] 125 mg capsule 125 mg PO TID-QID PRN (Reason: abdominal distention) Qty: 120 2RF polyethylene glycol 3350 [Miralax] 17 gram/dose powder 238 g PO ONCE Qty: 238 0RF Rx Instructions: As directed by gastroenterology department at [facility] omeprazole 20 mg capsule,delayed release(DR/EC) 20 mg PO DAILY Qty: 30 3RF
[2022-11-13 23:56] VITALS: BP 118/55; PULSE 91; RESP 16; TEMP 36.8; O2SAT 956
[2022-11-13 23:56] LABS: Alanine Aminotransferase 13 U/L (0-31); Albumin Level 4.7 g/dL (3.5-5.0); Alkaline Phosphatase 106 U/L (39-117); Anion Gap 15 (12-20); Aspartate Amino Transferase 17 U/L (5-31); Bilirubin Direct 0.2 mg/dL (0.0-0.5); Bilirubin Total 0.6 mg/dL (0.0-1.0); Blood Urea Nitrogen 15 mg/dL (9-16); Calcium 10.7 mg/dL (8.4-10.2); Carbon Dioxide 27 mmol/L (22-29); Chloride 106 mmol/L (96-108); Creatinine Clr Calc Pharmacy 63.5; Estimated Glomerular Filt Rate 60; Glucose Random 151 mg/dL (60-115); Lipase 43 U/L (8-78); Potassium 3.4 mmol/L (3.3-5.1); Sodium 145 mmol/L (135-145); Total Protein 8.2 g/dL (6.5-8.0)
--- NOTE | 2022-11-14 00:49 | PC.NURSE ---
Pt given ghazala thony and saltine crackers.
[2022-11-14 01:34] VITALS: BP 121/63; PULSE 78; RESP 16; O2SAT 95
== END 2022-11-14 01:36 | disposition home or self-care (01) ==
PROVIDERS: Emergency Provider Internal Medicine
DX: K52.9 Noninfective gastroenteritis and colitis, unspecified (principal); R11.2 Nausea with vomiting, unspecified; E11.9 Type 2 diabetes mellitus without complications; I10 Essential (primary) hypertension; E78.5 Hyperlipidemia, unspecified; Z90.49 Acquired absence of other specified parts of digestive tract; Z79.84 Long term (current) use of oral hypoglycemic drugs; Z79.899 Other long term (current) drug therapy; F17.210 Nicotine dependence, cigarettes, uncomplicated; F12.90 Cannabis use, unspecified, uncomplicated
CPT/HCPCS: 36415; 74176; 80053; 81001; 81025; 82248; 83690; 85027; 96361; 96374; 99284; J2405

== ENCOUNTER 2023-01-02 08:47 | Day surgery (SDC) | payer MEDICAID, SELFPAY ==
[2022-12-31 11:48] VITALS: BMI 31.8
--- NOTE | 2023-01-01 12:54 | HO.ANESPROP2 ---
Documented by User: Lisa Salcido NP 01/01/23 12:54 HPI - Anesthesia Eval Consult details Narrative: 52yo F for Upper Endoscopy and Colonoscopy PMF Active Problems Active Problems: All Active Problems (Updated 11/15/22 @ 00:05 by Fidelina Washington) S/P laparoscopic cholecystectomy (Acute) Cholelithiasis (Acute) BMI 33.0-33.9,adult (Acute) Asthma (Acute) Hyperlipidemia (Acute) Breast cancer (Acute) Depression (Acute) HTN (hypertension) (Acute) BMI 34.0-34.9,adult (Acute) Generalized anxiety disorder (Acute) Major depressive disorder, recurrent, moderate (Acute) Diabetes (Acute) Obesity (BMI 30-39.9) (Acute) Metrorrhagia (Acute) Well woman exam (Acute) Past Medical History Medical History Anxiety Asthma Breast cancer Depression HTN (hypertension) Hyperlipidemia Family History Family History Mother Diabetes Heart problem Father Diabetes Son Diabetes Family history of problems with anesthesia: No Surgical History Surgical History History of dilatation and curettage Hx laparoscopic cholecystectomy Tubal ligation status History of Problems with Anesthesia: No Social History Social History Alcohol intake: former Patient Tobacco Use Status: Current everyday Tobacco user Tobacco use type: Cigarette Cigarette Packs Per Day: 1 Cigarettes Per Day: 20.0 Years Smoked: 30 yrs Substance Use Type: Marijuana Gender identity: Female Meds Allergies Allergy/AdvReac Type Severity Reaction Status Date / Time No Known Allergies Allergy Verified 10/25/22 11:47 Home Medications Medication Instructions Recorded Confirmed Last Taken Type amlodipine 5 mg tablet 5 mg PO DAILY 10/11/20 01/02/23 01/02/23 History metformin 500 mg tablet 500 mg PO BID 10/11/20 01/02/23 Unknown History sertraline 100 mg tablet 100 mg PO DAILY 10/11/20 01/02/23 Unknown History fluticasone propionate 250 1 inh inhalation Q12H 09/24/21 01/02/23 Unknown History mcg/actuation blister powder for inhalation (Flovent Diskus) Exam Exam Date and Time: January 01, 2023 1254 Height,Weight and Vital Signs: Height 5 ft 2 in Weight 78.925 kg Assessment and Plan Assessment Anesthesia Assessment: Chart Reviewed Final Anesthetic Review Family History of Problems with Anesthesia: No History of Problems with Anesthesia: No Documented by User: Alfonso Murray MD 01/02/23 16:48 [facility] Past Medical History Medical History Anxiety Asthma Breast cancer Depression HTN (hypertension) Hyperlipidemia Functional capacity: independent ambulation Family History Family History Mother Diabetes Heart problem Father Diabetes Son Diabetes Surgical History Surgical History History of dilatation and curettage Hx laparoscopic cholecystectomy Tubal ligation status Social History Social History Alcohol intake: former Patient Tobacco Use Status: Current everyday Tobacco user Tobacco use type: Cigarette Cigarette Packs Per Day: 1 Cigarettes Per Day: 20.0 Years Smoked: 30 yrs Substance Use Type: Marijuana Gender identity: Female Meds Allergies Allergy/AdvReac Type Severity Reaction Status Date / Time No Known Allergies Allergy Verified 10/25/22 11:47 Home Medications Medication Instructions Recorded Confirmed Last Taken Type amlodipine 5 mg tablet 5 mg PO DAILY 10/11/20 01/02/23 01/02/23 History metformin 500 mg tablet 500 mg PO BID 10/11/20 01/02/23 Unknown History sertraline 100 mg tablet 100 mg PO DAILY 10/11/20 01/02/23 Unknown History fluticasone propionate 250 1 inh inhalation Q12H 09/24/21 01/02/23 Unknown History mcg/actuation blister powder for inhalation (Flovent Diskus) Exam Airway Mallampati Class: III Denture: Upper Loose/Missing/Broken Teeth: Yes Assessment and Plan Assessment Anesthesia Assessment: Anesthesia Plan Discussed and Smoking Cess. Discussed Final Anesthetic Review NPO: Yes ASA Class: III Final Preanesthetic Review: Meds/Allgs Chart Reviewed, Consent Obtained/Reviewed and Anes Risks/Benef Reviewed Patient Risk: Intermediate Procedure Risk: Intermediate Anesthetic Plan Anesthetic Plan: MAC: and Agree w/ Assess. and Plan Disposition: Standard PACU
[2023-01-02 09:29] VITALS: BP 134/90; PULSE 77; RESP 18; TEMP 36.3; O2SAT 97
[2023-01-02] MEDS: Lactated Ringers 1,000 ML 100 ML IVCONT (09:54)
[2023-01-02 10:07] LABS: Glucose, Whole Blood 88 mg/dL (60-115)
--- NOTE | 2023-01-02 10:21 | MHC.SHP ---
Pre-Procedural Eval Section A Date of Service: 01/02/23 Section B Chief Complaint: GERD,Screening Relevant Family History (Specify if Yes): No Relevant Social History: Tobacco Use Present Medications: see Short Stay Collaborative assessment Medical History: Significant History (Anxiety Asthma Breast cancer Depression HTN (hypertension) Hyperlipidemia) History of Previous Operations: Relevant previous surgery/procedure and date(s) (History of dilatation and curettage Hx laparoscopic cholecystectomy Tubal ligation status) Allergies: Allergies Allergy/AdvReac Type Severity Reaction Status Date / Time No Known Allergies Allergy Verified 10/25/22 11:47 Review of Systems Sugical H&P ROS: Negative: Constitution, Cardiovascular, Respiratory, Neurological, Psychiatric, Hem-Onc, Allergic/Immunologic, Gastrointestinal, Genitourinary, Musculoskeletal, Integumentary, Endocrine and Eyes/Ears/Nose/Throat Exam Surgical H&P Exam: Normal: HEENT, Normal: Heart, Normal: Lungs, Normal: Extremities, Normal: Abdomen, Normal: Skin and Normal: Neurological Plan Diagnosis/Plan: Unchanged I have reviewed the history and physical and performed a pertinent physical examination on my patient. No changes have occurred unless specified. Time Spent With Patient Time: Total time managing care of this patient today ____ minutes.
--- NOTE | 2023-01-02 10:22 | P.OP_ITS ---
Operative Note Operative Note Date of Service: 01/02/23 Narrative: Operative Information Procedure Description: EGD, Colonoscopy Indication: GERD, screening colonoscopy Anesthesia: MAC FLEXIBLE TRANSORAL UPPER GASTROINTESTINAL ENDOSCOPY AND COLONOSCOPY PROCEDURE NOTE UPPER ENDOSCOPY Consent: Indications for the procedure and potential complications of bleeding, perforation, reaction to medications and missed diagnosis were discussed with the patient and informed consent was obtained. Instrument: Olympus GIF H 190 J mid size upper endoscope Monitoring: Vital signs and clinical assessment, continuous EKG monitoring, Pulse oximetry, Carbon Dioxide monitoring and blood pressure monitoring were done throughout the procedure. Procedure: The patient was placed in the left lateral decubitis position and pre-procedure medications were administered and a bite block was placed. The endoscope was inserted into the mouth and advanced under direct vision to the third part of duodenum. A careful inspection was made as the upper endoscope was withdrawn including a retroflexed examination of the proximal stomach; Findings and interventions are described below. Findings: Larynx:normal Esophagus: GE junction at 38 cm, diaphragm hiatus at 38 cm, erosive esophagitis with erosive streaks seen , bx taken from GEJ, distal and proximal esophagus Stomach: Patchy erythema and scarring. Biopsies were obtained. Grade 2 flap valve on retroflexed examination of the cardia. Some pallor noted in distal stomach Duodenum: Normal bulb and descending duodenum, bx taken Intervention: Biopsies as noted above COLONOSCOPY Instrument: Olympus variable stiffness pediatric scope 190L Colonoscopy Monitoring: Vital signs and clinical assessment, continuous EKG monitoring, Pulse oximetry, Carbon Dioxide monitoring and blood pressure monitoring were done throughout the procedure. Colon withdrawal time was 12 minutes. Procedure: The patient was placed in the left lateral decubitis position and pre-procedure medications were administered. After a digital rectal examination of the ano-rectum, the video colonoscope was inserted into the rectum and advanced through the colon to the cecum/TI. The colonoscope was slowly withdrawn in a retrograde panoramic fashion and the colon mucosa was carefully examined including a retroflexed view of the rectum. Findings and interventions are described below. Procedure Difficulty: easy Findings: Terminal Ileum-normal Cecum:normal Ascending Colon: normal Transverse Colon -normal Descending Colon:normal Sigmoid Colon: 6-8 mm sessile polyp removed with cold snare, mucosa looked granular and congested bx taken Rectum: Retroflexion with small internal hemorrhoids, grade I, granular mucosa, bx taken Anorectum - normal Colon preparation: [place] Bowel Preparation Scale Right colon; 2 Transverse colon: 2 Left colon; 2 (0 = Unprepared colon segment with mucosa not seen due to solid stool that cannot be cleared. 1 = Portion of mucosa of the colon segment seen, but other areas of the colon segment not well seen due to staining, residual stool and/or opaque liquid. 2 = Minor amount of residual staining, small fragments of stool and/or opaque liquid, but mucosa of colon segment seen well. 3 = Entire mucosa of colon segment seen well with no residual staining, small fragments of stool or opaque liquid) Impression and Post Procedure Diagnosis: Endoscopy Findings: erosive esophagitis atrophic gastritis possible ischemic gastritis Colonoscopy Findings: polyp internal hemorrhoids Plan: Await Pathology results Repeat Colonoscopy in 5 years if adenomatous polyp, 10 yrs if hyperplastic or earlier if clinically indicated High fiber diet leaflet avoid straining at stool, epsom salts and sitz bath, anusol supps or cream GERD precautions weight loss and smoking cessation consider duplex to r/o mesenteric ischemia Above findings were reviewed with the patient and relevant handouts were provided if indicated.
[2023-01-02 11:17] VITALS: BP 109/67; PULSE 102; RESP 16; TEMP 36.7; O2SAT 97
[2023-01-02 11:32] VITALS: BP 121/74; PULSE 82; RESP 18; TEMP 36.5; O2SAT 98
== END 2023-01-02 11:41 | disposition home or self-care (01) ==
PROVIDERS: PCP Student in an Organized Health Care Education/Training Program; Visit Provider Internal Medicine Gastroenterology
PROC: (CPT 45385; principal; 2023-01-02 10:40)
DX: Z12.11 Encounter for screening for malignant neoplasm of colon (principal); K63.5 Polyp of colon; K64.0 First degree hemorrhoids; K20.80 Other esophagitis without bleeding; K29.40 Chronic atrophic gastritis without bleeding; K21.9 Gastro-esophageal reflux disease without esophagitis; K44.9 Diaphragmatic hernia without obstruction or gangrene; F17.210 Nicotine dependence, cigarettes, uncomplicated; I10 Essential (primary) hypertension; E78.5 Hyperlipidemia, unspecified; J45.909 Unspecified asthma, uncomplicated; E11.9 Type 2 diabetes mellitus without complications; Z90.49 Acquired absence of other specified parts of digestive tract; Z79.84 Long term (current) use of oral hypoglycemic drugs; Z79.51 Long term (current) use of inhaled steroids; Z79.899 Other long term (current) drug therapy
CPT/HCPCS: 45385; 45380; 43239; 82947; 88305; 88342

== ENCOUNTER → 2023-01-02 08:47 | Outpatient (BNV) | payer MEDICAID, SELFPAY | PROVIDERS: PCP Student in an Organized Health Care Education/Training Program; Visit Provider Internal Medicine Gastroenterology | DX: Z12.11 Encounter for screening for malignant neoplasm of colon (principal); K21.00 Gastro-esophageal reflux disease with esophagitis, without bleeding; D12.5 Benign neoplasm of sigmoid colon; K64.0 First degree hemorrhoids; K29.70 Gastritis, unspecified, without bleeding | CPT/HCPCS: 43239; 45385 ==

== ENCOUNTER 2023-01-07 14:41 | Outpatient (AMB) | payer MEDICAID, SELFPAY ==
--- NOTE | 2023-01-07 14:50 | MHC.OFFVIS ---
Intake Vital Signs 01/07/23 14:53 Height 5 ft 2 in Weight 163 lb 9.328 oz BMI 29.9 BP 119/82 Blood Pressure Location Lt brachial Position Sitting Pulse 78 Intake Visit Reasons: s/p Double; Dr. 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 Doll HPI Details LAST VISIT Screen for colon cancer Patient reviewed all the paperwork regarding preparation for colonoscopy and verbalizes understanding of instructions. I will see her after the procedure. GERD (gastroesophageal reflux disease) Patient can continue omeprazole in the morning half an hour before breakfast. Discussed with patient avoiding dietary triggers in late night snacking. Staying upright for minimal 3 hours after meals discussed with patient. Postprandial abdominal bloating Occasional postprandial abdominal bloating depending on what she eats. Continue simethicone. Continue avoiding dietary triggers. Low FODMAP diet discussed. List of food recommended as well as list of food to avoid discussed with patient again Diarrhea Postprandial diarrhea. Related to cholelithiasis. Ultrasound from October of 2021 reviewed. Cholelithiasis without cholecystitis found. Patient does not have any abdominal pain or discomfort. Continue avoiding food that is triggering her symptoms. I will see patient after colonoscopy and upper endoscopy. She is agreeable to this plan and verbalizes understanding of instructions. She was given the opportunity to ask questions which I answered. UPPER ENDOSCOPY AND COLONOSCOPY Findings: Larynx:normal Esophagus: GE junction at 38? cm, diaphragm hiatus at 38 cm, erosive esophagitis with erosive streaks seen , bx taken from GEJ, distal and proximal esophagus Stomach: Patchy erythema and scarring. Biopsies were obtained. Grade 2 flap valve on retroflexed examination of the cardia. Some pallor noted in distal stomach Duodenum: Normal bulb and descending duodenum, bx taken Intervention: Biopsies as noted above Findings: Terminal Ileum-normal Cecum:normal Ascending Colon: normal Transverse Colon -normal Descending Colon:normal Sigmoid Colon: 6-8 mm sessile polyp removed with cold snare, mucosa looked granular and congested bx taken Rectum: Retroflexion with small internal hemorrhoids, grade I, granular mucosa, bx taken Anorectum - normal Colon preparation: [place] Bowel Preparation Scale Right colon; 2 Transverse colon: 2 Left colon; 2 (0 = Unprepared colon segment with mucosa not seen due to solid stool that cannot be cleared. 1 = Portion of mucosa of the colon segment seen, but other areas of the colon segment not well seen due to staining, residual stool and/or opaque liquid. 2 = Minor amount of residual staining, small fragments of stool and/or opaque liquid, but mucosa of colon segment seen well. 3 = Entire mucosa of colon segment seen well with no residual staining, small fragments of stool or opaque liquid) Impression and Post Procedure Diagnosis: Endoscopy Findings: erosive esophagitis atrophic gastritis possible? ischemic gastritis Colonoscopy Findings: polyp internal hemorrhoids Plan: Await Pathology results Repeat Colonoscopy in 5 years if adenomatous polyp, 10 yrs if hyperplastic or earlier if clinically indicated High fiber diet leaflet avoid straining at stool, epsom salts and sitz bath, anusol supps or cream GERD precautions weight loss and smoking cessation consider duplex to r/o mesenteric ischemia PATHOLOGY RESULTS Diagnosis A.? Colon, sigmoid, polypectomy:? Hyperplastic polyp. B.? Colon, sigmoid, biopsy:? Colonic mucosa within normal limits; negative for active, chronic or microscopic colitis. C.? Colon, rectum, biopsy:? Colonic mucosa within normal limits; negative for active, chronic or microscopic colitis. D.? Duodenum, biopsy:? Duodenal mucosa within normal limits; preserved villous architecture and no increased intraepithelial lymphocytes seen. E.? Stomach, biopsy:? Gastric antral and body mucosa within normal limits; negative for Helicobacter pylori, intestinal metaplasia and dysplasia. F.? Gastroesophageal junction, biopsy:? Squamous mucosa with rare intraepithelial eosinophils (up to 1 per high power field) and reactive epithelial changes; no glandular component seen; negative for fungal organisms, intestinal metaplasia and dysplasia. G.? Esophagus, distal, biopsy:? Squamous mucosa with mild reactive epithelial changes; negative for inflammation (including intraepithelial eosinophils), fungal organisms, intestinal metaplasia and dysplasia. H.? Esophagus, proximal, biopsy:? Squamous mucosa with mild reactive epithelial changes; negative for inflammation (including intraepithelial eosinophils), fungal organisms, intestinal metaplasia and dysplasia. ? TODAY'S VISIT: PATIENT IS HERE TODAY for follow-up and to discuss colonoscopy and upper endoscopy results. Upper endoscopy and colonoscopy discussed with patient. Patient denies any ill effects from the prep, anesthesia or procedure itself. Patient reports that she has been feeling well. Denies any dyspepsia, dysphagia odynophagia. Denies any trouble moving her bowels. Patient states that she is feeling much better since she started Trulicity few months ago. Patient has last was 35 lb in about 6 months or so. Recommendation was made for patient to have gastric emptying study, however patient states that she is feeling like she is digesting her food well. Patient has however decreased appetite due to taking Trulicity once a week. ON LICENSE OF [facility] Medical History Anxiety Asthma Breast cancer Depression HTN (hypertension) Hyperlipidemia Surgical History History of dilatation and curettage History of esophagogastroduodenoscopy (EGD) Hx laparoscopic cholecystectomy Hx of colonoscopy Tubal ligation status Family History Mother Diabetes Heart problem Father Diabetes Son Diabetes Social History Alcohol intake: former Patient Tobacco Use Status: Current everyday Tobacco user Tobacco use type: Cigarette Cigarette Packs Per Day: 1 Cigarettes Per Day: 20.0 Years Smoked: 30 yrs Substance Use Type: Marijuana Gender identity: Female Review of Systems Const Denies weight gain and Denies weight loss ENT Reports no additional complaints, Denies dysphagia and Denies odynophagia Card Reports no additional complaints Resp Reports no additional complaints GI Denies abdominal pain, Denies belching, Denies melena, Denies bloating, Denies change in bowel habits, Denies dysphagia, Denies excessive flatus, Denies dyspepsia, Denies heartburn, Denies diarrhea, Denies loose stools, Denies nausea, Denies odynophagia and Denies vomiting Reports no additional complaints Musc Reports no additional complaints Neuro Reports no additional complaints Psych Reports no additional complaints Endo Reports no additional complaints Physical Exam Const General: healthy appearing, no acute distress and well developed Nutritional Appearance: obese Orientation/consciousness: patient oriented x3 HEENT Head: Yes normal to inspection, Yes normocephalic and Yes atraumatic Face and sinus: Yes normal facial exam Mouth: Normal oral and palatal mucosa present Throat: Yes posterior oropharynx normal, Yes tonsils normal and Yes uvula midline Eyes General: appearance normal, both eyes and all related structures Neck Neck: Yes normal visual inspection, Yes full ROM and Yes trachea midline Thyroid: Thyroid normal Resp Effort & Inspection: normal respiratory effort, able to speak in complete sentences, no tracheal deviation and symmetric chest movement Auscultation: clear to auscultation bilaterally Cardio Rate: regular rate Heart sounds: S1 normal heart sound present and S2 normal heart sound present GI Inspection: Yes normal to inspection, No distended and Yes obesity Palpation (GI): Soft to palpation, not firm, nontender and No hepatosplenomegaly present Auscultation: normal bowel sounds General: Yes no CVA tenderness Back/Spine/Pelvis Back: no CVA tenderness Skin General skin exam: elasticity normal, turgor normal and dry skin Neuro General: patient oriented x3 Psych Appearance: grossly normal Mental Status: mental status grossly normal Speech and movement: Normal speech and movement present Assessment & Plan Assessment & Plan (1) GERD (gastroesophageal reflux disease): Code(s): K21.9 - Gastro-esophageal reflux disease without esophagitis Qualifiers: Esophagitis presence: esophagitis presence not specified Qualified Code(s): K21.9 - Gastro-esophageal reflux disease without esophagitis Plan: Continue taking omeprazole every half an hour before breakfast. Continue avoiding dietary triggers only 10 seconds. Staying upright for minimal 3 hours after meals discussed with patient. (2) Postprandial abdominal bloating: Code(s): R14.0 - Abdominal distension (gaseous) Plan: Patient reports she no longer has abdominal bloating patient is currently eating small meals she can continue that. On Trulicity which probably is contributing to patient not feeling hungry. Patient states that she is not much ink anymore and is following low FODMAP diet as much as possible (3) IBS (irritable bowel syndrome): Code(s): K58.9 - Irritable bowel syndrome without diarrhea Qualifiers: Irritable bowel syndrome type: without diarrhea Qualified Code(s): K58.9 - Irritable bowel syndrome without diarrhea Plan: Continue low FODMAP diet. Continue to drink plenty fluids. Continue exercise. Patient will return in 6 months, sooner on as needed basis. Patient is agreeable to this plan and verbalizes understanding of instructions. She was given the opportunity to ask questions and all questions answered. Thank you for allowing me to participate in her care Orders: Orders Hemoglobin A1c Today E11.9 - Type 2 diabetes mellitus without complications Coding Level of Care Code Est Pt Level 3 (63368) Diagnoses GERD (gastroesophageal reflux disease) K21.9 Esophagitis presence: esophagitis presence not specified Postprandial abdominal bloating R14.0 IBS (irritable bowel syndrome) K58.9 Irritable bowel syndrome type: without diarrhea Time Spent (min) 30 Comment 20 minutes spent with patient and additional 10 minutes spent reviewing her record
[2023-01-07 14:53] VITALS: BP 119/82; PULSE 78; BMI 29.9
== END 2023-01-07 15:17 | disposition home or self-care (01) ==
PROVIDERS: PCP Internal Medicine; Visit Provider Nurse Practitioner Family
DX: K21.9 Gastro-esophageal reflux disease without esophagitis (principal); R14.0 Abdominal distension (gaseous); K58.9 Irritable bowel syndrome, unspecified
CPT/HCPCS: 99213

== ENCOUNTER 2023-01-07 14:41 | Outpatient (REF) | payer MEDICAID, SELFPAY ==
[2023-01-07 17:06] LABS: Estimated Average Glucose 105 mg/dL; Hemoglobin A1C 130.0862 umol/L; Hemoglobin A1c % 5.3 % (<6.0)
== END 2023-01-07 14:42 | disposition home or self-care (01) ==
LOC: HO.LAB 14:41
PROVIDERS: PCP Internal Medicine; Visit Provider Nurse Practitioner Family
DX: K21.9 Gastro-esophageal reflux disease without esophagitis (principal); K58.9 Irritable bowel syndrome, unspecified; R19.7 Diarrhea, unspecified; R14.0 Abdominal distension (gaseous); E11.9 Type 2 diabetes mellitus without complications; Z79.899 Other long term (current) drug therapy
CPT/HCPCS: 36415; 83036; 99213

== ENCOUNTER 2023-05-02 14:09 | Outpatient (REF) | payer MEDICAID, SELFPAY ==
[2023-05-02 16:43] LABS: Anion Gap 12 (12-20); Blood Urea Nitrogen 11 mg/dL (9-16); Calcium 9.4 mg/dL (8.4-10.2); Carbon Dioxide 26 mmol/L (22-29); Chloride 107 mmol/L (96-108); Cholesterol 183 mg/dL (<200); Estimated Glomerular Filt Rate > 60; Glucose Random 87 mg/dL (60-115); HDL Cholesterol 41 mg/dL (>40); LDL Cholesterol Calculated 118 mg/dL (<100); Sodium 141 mmol/L (135-145); Triglycerides 123 mg/dL (<150)
[2023-05-02 20:39] LABS: Microalbum/Creatinine Ratio Ur 7.6 ug/mg cr (<30)
== END 2023-05-02 14:10 | disposition home or self-care (01) ==
LOC: HO.HHCL 14:09
PROVIDERS: Visit Provider Internal Medicine
DX: E11.9 Type 2 diabetes mellitus without complications (principal)
CPT/HCPCS: 36415; 80048; 80061; 82043; 82570

== ENCOUNTER 2023-07-04 10:09 | Outpatient (AMB) | payer MEDICAID, SELFPAY ==
--- NOTE | 2023-07-04 08:46 | MHC.OFFVIS ---
Intake Intake Visit Reasons: LDCT SD Allergies No Known Allergies Allergy (Verified 01/07/23 14:51) HPI HPI Comments History of Present Illness Details Fatmata is a pleasant 52 year old female, current smoker with a 20 PYH. Patient has been smoking since age 16 for 36 years at 1/2 -3/4 ppd. Denies exposure to chemicals or substances like asbestos. Denies second hand smoke exposure. Reports maternal aunt with possible lung cancer. Reports personal history of right breast cancer 17 years ago s/p lumpectomy, chemo/radiation. Denies chest CT in last year. Denies recent travel outside the [place]. Denies testing positive for COVID. Admits receiving COVID Vaccine. Denies fever, chills, chest pain, new cough( answered yes on questionnaire however chronic), hemoptysis or unintentional weight loss. Lung Cancer Screening Questionnaire reviewed with patient by provider. Shared Decision Making Completed. Discussed in detail with patient, the risk versus benefit of LDCT screening. Patient in agreement of proceeding with scan. PFS Medical History Anxiety Asthma Breast cancer Depression HTN (hypertension) Hyperlipidemia Surgical History History of dilatation and curettage History of esophagogastroduodenoscopy (EGD) Hx laparoscopic cholecystectomy Hx of colonoscopy Tubal ligation status Family History Mother Diabetes Heart problem Father Diabetes Son Diabetes Social History (Updated 07/04/23 @ 14:00 by Debbi Tanner NP) Alcohol intake: former Patient Tobacco Use Status: Current everyday Tobacco user Tobacco use type: Cigarette Cigarette Packs Per Day: 0.5 Years Smoked: 36 yrs Gender identity: Female Assessment & Plan Assessment & Plan (1) Nicotine dependence, cigarettes, uncomplicated: Code(s): F17.210 - Nicotine dependence, cigarettes, uncomplicated Plan Shared decision-making visit completed today in office. This patient meets criteria for LDCT for lung cancer screening purposes and is asymptomatic. Offered smoking cessation, will enter referral to nurse navigator. Patient has been scheduled for a low dose chest CT for screening purposes at [facility]. We discussed how the results will be obtained depending on CT findings. RADS 1 and RADS 2 will receive a letter with results and will follow up for annual LDCT. Patient informed they will be contacted at later date to schedule upcoming LDCT scan. RADS 3 and RADS 4 will receive a telephone call, or an office visit after reviewing case at our Lung Cancer Conference to determine when the next LDCT will be scheduled or further interventions that may be needed. Discussed importance of screening program and compliance with yearly LDCT scan as scheduled. Risks, benefits, and alternatives were discussed in detail and patient agrees to proceed. Risks discussed include but are not limited to: radiation exposure and possibility of additional intervention for benign disease. Benefits include detection of lung cancer at an early stage. A copy of today's visit and LDCT results will be sent to patient's PCP. Incidental findings on LDCT are PCP's responsibility. If there are incidental findings, our office will ensure that PCP office is aware of these findings. All questions were answered and patient is in agreement of plan. Orders: Referrals Nurse Navigator Referral F17.210 - Nicotine dependence, cigarettes, uncomplicated Coding Level of Care Code Lung Cancer Screening G0296 Diagnoses Nicotine dependence, cigarettes, uncomplicated F17.210
== END 2023-07-04 11:05 | disposition home or self-care (01) ==
PROVIDERS: PCP Internal Medicine; Referring Provider Internal Medicine; Visit Provider Nurse Practitioner Family
DX: F17.210 Nicotine dependence, cigarettes, uncomplicated (principal)
CPT/HCPCS: G0296

== ENCOUNTER 2023-07-04 10:51 | Outpatient (REF) | payer MEDICAID, SELFPAY ==
--- NOTE | ~2023-07-04 | CT_ITS ---
EXAMINATION: CT CHEST SCREENING CLINICAL INFORMATION: Current smoker at 1 pack per day with [id number] history. COMPARISON: Prior CT scans of the abdomen and pelvis but none of the chest. TECHNIQUE: Multidetector volumetric CT imaging of the chest is performed without contrast using low dose technique. Additional 2D coronal and sagittal reformatted images and axial 3D maximum intensity projection (MIP) images are generated on the CT workstation. This CT examination was performed using dose optimization techniques as appropriate, variously including the following: *Automated exposure control *Adjustment of mA and/or kV according to patient size (this includes techniques or standardized protocols for targeted exams where dose is matched to indication/reason for exam; i.e. extremities or head) *Use of iterative reconstruction technique DLP: 48 mGy-cm FINDINGS: LUNGS: Mild emphysematous changes are present with some peripheral bullous formation present most prominent at the apices. The lungs are clear with no evidence of inflammation or nodules. MEDIASTINUM: A large coarse calcification is present in the left lobe of the thyroid. CORONARY ARTERY CALCIFICATION: None visualized on this study. PLEURA: There is no pleural effusion. No pleural mass or thickening. AXILLA/CHEST WALL: There is a 2.0 x 1.4 x 2.2 cm mass in the right breast medially with an adjacent coarse calcification. The center of the mass measures fluid density but has a higher density rim. No other chest wall or axillary mass is seen. UPPER ABDOMEN: Status post cholecystectomy. Adrenal glands appear normal. OSSEOUS STRUCTURES: Unremarkable. CT/CT lung screening IMPRESSION: Mild emphysematous changes. No suspicious lung masses. Right-sided breast mass, as described above. Correlation with physical exam, ultrasound and mammography is recommended ASSESSMENT: Lung-RADS category 1: Negative. RECOMMENDATION: Routine annual low-dose CT screening in 12 months. Breast recommendations, as described above
== END 2023-07-04 10:52 | disposition home or self-care (01) ==
LOC: HO.CT 10:51
PROVIDERS: PCP Internal Medicine; Visit Provider Nurse Practitioner Family
DX: Z12.2 Encounter for screening for malignant neoplasm of respiratory organs (principal); F17.210 Nicotine dependence, cigarettes, uncomplicated
CPT/HCPCS: 71271; G0296

== ENCOUNTER 2023-07-09 14:41 | Outpatient (AMB) | payer MEDICAID, SELFPAY ==
--- NOTE | 2023-07-09 14:57 | MHC.OFFVIS ---
Intake Vital Signs 07/09/23 15:01 Height 5 ft 2 in Weight 160 lb 14.999 oz BMI 29.4 BP 118/80 Blood Pressure Location Lt brachial Position Sitting Pulse 75 Intake Visit Reasons: 6 month follow up Intake Note: Patient is seen in office for 6 month follow up visit, following GERD. Pt c/o: admits to heartburn medication that was Rx at last visit was never received, no other concerns Assistant Technician Required: No Accompanied by: Self / Same As Patient Allergies No Known Allergies Allergy (Verified 01/07/23 14:51) HPI 6 month follow up HPI Details LAST VISIT GERD (gastroesophageal reflux disease) Continue taking omeprazole every half an hour before breakfast. Continue avoiding dietary triggers only 10 seconds. Staying upright for minimal 3 hours after meals discussed with patient. Postprandial abdominal bloating Patient reports she no longer has abdominal bloating patient is currently eating small meals she can continue that. On Trulicity which probably is contributing to patient not feeling hungry. Patient states that she is not much ink anymore and is following low FODMAP diet as much as possible IBS (irritable bowel syndrome) Continue low FODMAP diet. Continue to drink plenty fluids. Continue exercise. Patient will return in 6 months, sooner on as needed basis. Patient is agreeable to this plan and verbalizes understanding of instructions. She was given the opportunity to ask questions and all questions answered. ? TODAY'S VISIT Patient is here today for follow-up. Patient reports that she has been doing very well she continues to exercise few times a week. Reports that she has been doing very well on Trulicity continues to lose weight and feeling well. Patient decide to lose weight with diet, taking Trulicity and exercise. Tries to avoid food and continues to follow FODMAP diet. Patient reports that she was unable to get her script for omeprazole from the pharmacy as she had no more refills. Acid reflux occasionally. Patient denies eating late at night. Her last meal is around 19:00. Patient denies melena, hematochezia, unintentional weight loss or ribbon like stools. Occasional dyspepsia depending on what she eats, denies dysphagia or odynophagia. Patient denies any other GI concerning symptoms. [facility] Medical History Anxiety Asthma Breast cancer Depression HTN (hypertension) Hyperlipidemia Surgical History History of esophagogastroduodenoscopy (EGD) Hx of colonoscopy Hx laparoscopic cholecystectomy History of dilatation and curettage Tubal ligation status Family History Mother Diabetes Heart problem Father Diabetes Son Diabetes Social History Alcohol intake: former Patient Tobacco Use Status: Current everyday Tobacco user Tobacco use type: Cigarette Cigarette Packs Per Day: 0.5 Years Smoked: 36 yrs Gender identity: Female Review of Systems Const Denies weight gain and Denies weight loss ENT Reports no additional complaints, Denies dysphagia and Denies odynophagia Card Reports no additional complaints Resp Reports no additional complaints GI Denies abdominal pain, Denies belching, Denies melena, Denies bloating, Denies change in bowel habits, Denies dysphagia, Denies excessive flatus, Denies dyspepsia, Denies heartburn, Denies diarrhea, Denies loose stools, Denies nausea, Denies odynophagia and Denies vomiting Reports no additional complaints Musc Reports no additional complaints Neuro Reports no additional complaints Psych Reports no additional complaints Endo Reports no additional complaints Physical Exam Vital Signs: Last Vital Signs Pulse 75 07/09/23 15:01 BP 118/80 07/09/23 15:01 BMI result Body Mass Index 29.4 Const General: healthy appearing, no acute distress and well developed Nutritional Appearance: well nourished Orientation/consciousness: patient oriented x3 Resp Effort & Inspection: normal respiratory effort, able to speak in complete sentences, no tracheal deviation and symmetric chest movement Auscultation: clear to auscultation bilaterally GI Inspection: Yes normal to inspection and No distended Palpation (GI): Soft to palpation, not firm, nontender and No hepatosplenomegaly present Auscultation: normal bowel sounds General: Yes no CVA tenderness Back/Spine/Pelvis Back: no CVA tenderness Skin General skin exam: elasticity normal, turgor normal and dry skin Neuro General: patient oriented x3 Psych Appearance: grossly normal Mental Status: mental status grossly normal Assessment & Plan Assessment & Plan (1) GERD (gastroesophageal reflux disease): Code(s): K21.9 - Gastro-esophageal reflux disease without esophagitis Qualifiers: Esophagitis presence: esophagitis presence not specified Qualified Code(s): K21.9 - Gastro-esophageal reflux disease without esophagitis (2) Postprandial abdominal bloating: Code(s): R14.0 - Abdominal distension (gaseous) (3) IBS (irritable bowel syndrome): Code(s): K58.9 - Irritable bowel syndrome without diarrhea Qualifiers: Irritable bowel syndrome type: without diarrhea Qualified Code(s): K58.9 - Irritable bowel syndrome without diarrhea Plan Continue current regimen with PPI. Continue avoiding dietary triggers and late night snacking. Staying upright for minimal 3 hours after meals discussed with patient. Patient will continue low FODMAP diet. Eating smaller meals and more often. I will see patient in 6 months, sooner on as needed basis. Patient will call the office if she will have any GI concerning symptoms. Patient is agreeable to plan of care and verbalizes understanding of instructions. She was given the opportunity to ask questions and all questions answered. Thank you for allowing me to participate in her care Medications: Refilled omeprazole 20 mg PO DAILY 90 caps 3RF K21.9 - Gastro-esophageal reflux disease without esophagitis Coding Level of Care Code Est Pt Level 3 (09210) Diagnoses Gastroesophageal reflux disease, unspecified whether esophagitis present K21.9 Esophagitis presence: esophagitis presence not specified Postprandial abdominal bloating R14.0 Irritable bowel syndrome without diarrhea K58.9 Irritable bowel syndrome type: without diarrhea Time Spent (min) 25 Comment 15 minutes spent with patient and additional 10 minutes spent reviewing her records
[2023-07-09 15:01] VITALS: BP 118/80; PULSE 75; BMI 29.4
== END 2023-07-09 15:23 | disposition home or self-care (01) ==
PROVIDERS: PCP Internal Medicine; Visit Provider Nurse Practitioner Family
DX: K21.9 Gastro-esophageal reflux disease without esophagitis (principal); R14.0 Abdominal distension (gaseous); K58.9 Irritable bowel syndrome, unspecified
CPT/HCPCS: 99213

== ENCOUNTER → 2023-07-09 14:41 | Outpatient (BNVA) | payer MEDICAID, SELFPAY | PROVIDERS: PCP Internal Medicine; Visit Provider Nurse Practitioner Family | DX: K21.9 Gastro-esophageal reflux disease without esophagitis (principal); K58.9 Irritable bowel syndrome, unspecified; R14.0 Abdominal distension (gaseous) | CPT/HCPCS: 99212 ==

== ENCOUNTER 2023-12-01 10:57 | Outpatient (AMB) | payer MEDICAID, SELFPAY ==
--- NOTE | 2023-12-01 11:12 | MHC.OFFVIS ---
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 No complaints. Last Pap/HPV negative in 10/30 Last Mammogram was BI-RADS 2 in 07/05, done at [facility] Medical History Asthma Hyperlipidemia Breast cancer Depression Anxiety HTN (hypertension) Surgical History History of esophagogastroduodenoscopy (EGD) Hx of colonoscopy Hx laparoscopic cholecystectomy History of dilatation and curettage Tubal ligation status Family History Mother Diabetes Heart problem Father Diabetes Son Diabetes Social History Alcohol intake: former Patient Tobacco Use Status: Current everyday Tobacco user Tobacco use type: Cigarette Cigarette Packs Per Day: 0.5 Years Smoked: 36 yrs Gender identity: Female Female Reproductive History Menstrual control method: permanent sterilization Date of last pap smear: 11/01/20 Date of Mammogram: 06/17/23 Review of Systems Const All systems reviewed & are unremarkable except as noted in HPI and below Card Reports as per HPI Resp Reports as per HPI GI Reports as per HPI and Reports no additional complaints Reports as per HPI Physical Exam Vital Signs: Last Vital Signs BP 118/68 12/01/23 11:18 BMI result Body Mass Index 29.4 Const General: cooperative, healthy appearing and comfortable Chest Chest palpation & inspection: normal inspection of the chest and normal palpation of entire chest wall Breast/axilla inspection: normal inspection of the breasts and normal inspection of the axillae Breast/axilla palpation: normal palpation of the breasts, normal palpation of the axillae and no axillary lymphadenopathy Resp Effort & Inspection: normal respiratory effort Auscultation: clear to auscultation bilaterally Percussion: percussion normal Cardio Palpation: normal PMI Rate: regular rate Rhythm: regular rhythm Heart sounds: no murmurs and no rubs Peripheral pulses: Peripheral pulses 2+ throughout GI Inspection: Yes normal to inspection Palpation (GI): Soft to palpation, nontender, no guarding, not rigid and No hepatosplenomegaly present Percussion: Yes normal to percussion Auscultation: normal bowel sounds Rectal Exam - Female: deferred General: Yes bladder normal to palpation External Female Exam: No lesion Speculum Exam - Vagina: normal appearance of the vagina, normal palpation, normal vaginal discharge and not erythematous Speculum Exam - Cervix: normal appearance of the cervix and normal palpation Bimanual exam- vagina & uterus: normal bimanual exam, normal palpation, uterine size normal, bladder normal to palpation, consistency normal and normal palpation Bimanual Exam- Adnexa, other: normal adnexae, no masses and no tenderness Assessment & Plan Assessment & Plan (1) Well woman exam: Code(s): Z01.419 - Encounter for gynecological examination (general) (routine) without abnormal findings Category: Medical Plan: Cotesting not indicated this year. Instructions given the patient is schedule next screening Mammogram in 09/03. Counseled the patient about the recommended dietary allowance of 1000 mg of Calcium & 600 IU of vitamin D. The patient was instructed to perform monthly self-breast exams and to schedule an annual exam in a year; All questions answered and the patient verbalized understanding. Instructed the patient to schedule annual exam in a year Coding Level of Care Code Est Pt Prev Care 40-64y(15028) Diagnoses Well woman exam Z01.419
[2023-12-01 11:18] VITALS: BP 118/68; BMI 29.4
== END 2023-12-01 11:34 | disposition home or self-care (01) ==
PROVIDERS: PCP Internal Medicine; Visit Provider Obstetrics & Gynecology
DX: Z01.419 Encounter for gynecological examination (general) (routine) without abnormal findings (principal)
CPT/HCPCS: 99396

== ENCOUNTER → 2023-12-01 10:57 | Outpatient (BNVA) | payer MEDICAID, SELFPAY | PROVIDERS: PCP Internal Medicine; Visit Provider Obstetrics & Gynecology | DX: Z01.419 Encounter for gynecological examination (general) (routine) without abnormal findings (principal) | CPT/HCPCS: 99396 ==

== ENCOUNTER 2024-09-09 15:42 | Outpatient (REF) | payer MEDICAID, SELFPAY ==
[2024-09-09 16:50] LABS: Alanine Aminotransferase 17 U/L (0-31); Albumin Level 4.5 g/dL (3.5-5.0); Alkaline Phosphatase 93 U/L (39-117); Anion Gap 11 (12-20); Aspartate Amino Transferase 20 U/L (5-31); Bilirubin Total 0.5 mg/dL (0.0-1.0); Blood Urea Nitrogen 8 mg/dL (9-16); Calcium 9.7 mg/dL (8.4-10.2); Carbon Dioxide 30 mmol/L (22-29); Chloride 107 mmol/L (96-108); Cholesterol 234 mg/dL (<200); Estimated Glomerular Filt Rate > 60; Glucose Random 79 mg/dL (60-115); HDL Cholesterol 46 mg/dL (>40); LDL Cholesterol Calculated 158 mg/dL (<100); Potassium 4.2 mmol/L (3.3-5.1); Sodium 144 mmol/L (135-145); Total Protein 7.4 g/dL (6.5-8.0); Triglycerides 151 mg/dL (<150)
--- OUTSIDE RECORDS SUMMARY | 2024-09-09 17:19 | XMS_ITS | Encounter Summary ---
Author Organization [employer] Address [address] [facility] [address] [place] [address] Care Team Providers Care Anesthesiology Crna Name Role Phone Adilene Berman MD Primary Care Provide r Reason for Visit * Reason Onset Date Comments Referral 06/30/2024 Encounter Details Date Type Department Care Team ([facility] st Contact Info) Description 06/30/2024 Telephone [facility] [address] [place] [address] Adilene Berman MD [address] [place], [place] [phone] Referral Social History Tobacco Use Types Packs/Day Years Used Date Smoking Tobacco: Every Day Cigarettes 1.5 39.3 Started: 05/12/1985 Passive Smoke Exposure: Current Smokeless Tobacco: Never Alcohol Use Standard Drinks/Week Comments Never 0 (1 standard drink = 0.6 oz pur e alcohol) Depression Answer Date Recorded Patient Health Questionnaire-9 Score 0 03/11/2024 Patient Health Questionnaire-9 Score 0 03/11/2024 Last PHQ-9: Questionnaire Data Not on file 1 Housing Stability Answer Date Recorded What is your housing situation today? I have young earl 03/04/[address] you li ve. Do you have problems with any of the following? None of the above 03/04/2024 Food Insecurity Answer Date Recorded Within the past 12 months, y ou worried that your food would run out before you got money to buy more: Never True 03/04/2024 Within the past 12 months,th e food you bought just didn't last and you didn't have enough money to get more: Never True Transportation Answer Date Recorded In the past 12 months, has l ack of transportation kept you from medical appts, meetings, work or from getting things needed for daily living? No 03/04/2024 Utilities Answer Date Recorded In the past 12 months, has t he electric, gas, oil or water company threatened to shut off services in your home? No 03/04/2024 Depression Answer Date Recorded Patient Health Questionnaire-2 Score 0 03/11/2024 Internet Access Answer Date Recorded Internet Access Q1 Yes 03/04/2024 Internet Access Q2 Not on file 03/04/2024 Comments Unknown Sex and Gender Information Value Date Recorded Sex Assigned at Female 03/11/2022 10:15 AM EDT Legal Sex Female 10:15 AM EDT Gender Identity Female 03/11/2022 10:15 AM EDT Sexual Orientation Straight 03/11/2022 10 :15 AM EDT documented as of this encounter Miscellaneous Notes * Telephone Encounter - Ruth Miller - 07/05/2024 12:23 PM EST Explosive Ordnance Manager spoke with patient. Patient prefers care at [facility] and has history of Mammo's being performedthere. Per patient they also would be available to see her sooner than [facility]. Order was changed and e-faxed to [facility] for review and appointment as of today. Will follow up and check on status of order. Patient to contact us if she has not heard anything by the end of the week. Patient is aware. * Telephone Encounter - Essence Mendez - 07/05/2024 10:23 AM EST Tc from pt requesting status of referral location as she requested to get change from [facility] to [facility]. * Telephone Encounter - Cristian Weber - 06/30/2024 12:11 PM EST Tc from pt requesting to change location from referral for radiology on 06/29/24 from [facility] to [facility]. Contact pt at [phone] documented in this encounter Plan of Treatment Not on file documented as of this encounter Visit Diagnoses Not on filedocumented in this encounter Additional Health Concerns Assessment Noted Time PHQ-9 Depression Total Score: 0 03/11/20 24 1:33 PM EDT documented as of this encounter Care Teams Anesthesiology Crna Relationship Specialty Start Date End Date Adilene Berman MD [address] [place] [id number] PCP - General Internal Medicine 07/11/22 documented as of this encounter
--- OUTSIDE RECORDS SUMMARY | 2024-09-09 17:19 | XMS_ITS | Encounter Summary ---
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 Teacher Name Role Phone Adilene Berman MD Primary Care Provide r Reason for Visit * Reason Comments Med Refill Encounter Details Date Type Department Care Team ([facility] st Contact Info) Description 11/05/2023 Refill [facility] [address] [place], [place] [phone] Adilene Berman MD [address] [place], [place] [phone] Diabetes mellitus without complication (CMS/HCC) Social History Tobacco Use Types Packs/Day Years Used Date Smoking Tobacco: Every Day Cigarettes 1.5 39.3 Started: 05/12/1985 Passive Smoke Exposure: Current Smokeless Tobacco: Never Alcohol Use Standard Drinks/Week Comments Never 0 (1 standard drink = 0.6 oz pur e alcohol) Depression Answer Date Recorded Patient Health Questionnaire-9 Score 15 04/12/2022 Housing Stability Answer Date Recorded What is your housing situation today? I have youngshonda earl 02/26/[address] you li ve. Do you have problems with any of the following? None of the above 02/26/2023 Food Insecurity Answer Date Recorded Within the past 12 months, y ou worried that your food would run out before you got money to buy more: Never True 02/26/2023 Within the past 12 months,th e food you bought just didn't last and you didn't have enough money to get more: Never True 10/ Transportation Answer Date Recorded In the past 12 months, has l ack of transportation kept you from medical appts, meetings, work or from getting things needed for daily living? No 02/26/2023 Utilities Answer Date Recorded In the past 12 months, has t he electric, gas, oil or water company threatened to shut off services in your home? No 02/26/2023 Depression Answer Date Recorded Patient Health Questionnaire-2 Score 4 04/12/2022 Comments Unknown Sex and Gender Information Value Date Recorded Sex Assigned at Female 03/11/2022 10:15 AM EDT Legal Sex Female 10:15 AM EDT Gender Identity Female 03/11/2022 10:15 AM EDT Sexual Orientation Straight 03/11/2022 10 :15 AM EDT documented as of this encounter Plan of Treatment Not on file documented as of this encounter Visit Diagnoses Diagnosis Diabetes mellitus without complication (CMS/[facility]) Type II or unspecified type diabetes mellitus without mention of complication, not stated as uncontrolled documented in this encounter Additional Health Concerns Assessment Noted Time PHQ-9 Depression Total Score: 15 022 1:49 PM EST documented as of this encounter Care Teams Pre Kindergarten Teacher Relationship Specialty Start Date End Date Adilene Berman MD [address] [place] [address] PCP - General Internal Medicine 07/11/22 documented as of this encounter
--- OUTSIDE RECORDS SUMMARY | 2024-09-09 17:19 | XMS_ITS | Clinical Summary ---
Author Organization [employer] Address [address] [place] [address] Care Team Providers Care Counseling Case Manager Name Role Phone Adilene Berman MD Primary Care Provide r Allergies No known active allergies Medications docusate sodium (Colace) 100 MG capsule Take by mouth twice a day. 02/01/20 22 Active glucose blood (FREESTYLE LITE) test strip at bed time. 02/01/20 22 Active lidocaine (Lidoderm) 5 % patch Place 1 patch on the skin at bed time. 03/30/20 21 Active Multiple Vitamin (Multi-Vitamin) tablet take 1 tablet by oral route every day with food 02/01/20 22 Active polyethylene glycol, PEG, 3350 (MiraLax) 17 GM/SCOOP powder Take 1 Scoop by mouth in the morning. 02/01/20 22 Active cyclobenzaprine (Flexeril) 10 MG tabletIndicatio ns:Low back pain without sciatica, unspecified back pain laterality, unspecified chronicity Take 1 tablet (10 mg) by mouth if needed in the morning, at noon, and at bedtime for muscle spasms. 60 tablet 04/12/20 22 Active docusate sodium (Colace) 100 MG capsuleIndicati ons:Constipatio n, unspecified constipation type Take 1 capsule by mouth 2 times daily. 180 capsule 2 05/20/19 23 Active Capsaicin in Lidocaine Vehicle 0.25 % creamIndication s:Heel spur, left Apply 1 application topically if needed in the morning, at noon, and at bedtime (for heel and foot pain). 60 g 1 07/05/19 23 Active fluticasone (Flovent HFA) 110 MCG/ACT inhalerIndicati ons:Asthma, unspecified asthma severity, unspecified whether complicated, unspecified whether persistent INHALE 1 PUFF BY MOUTH 2 TIMES A DAY. RINSE MOUTH WITH WATER AND SPIT OUT WATER AFTER EVERY USE 36 g 1 11/14/19 23 Active TRUEplus Lancets 33G misc USE TO TEST BLOOD SUGAR EVERY DAY 100 each 3 12/17/19 23 Active Ketotifen Fumarate (Alaway) 0.035 % solution Administer 1 drop into affected eye(s) 2 times daily. 5 mL 03/11/20 23 Active betamethasone dipropionate 0.05 % creamIndication s:Dyshidrotic eczema APPLY TOPICALLY 1-2 TIMES EVERY DAY A THIN LAYER TO THE AFFECTED AREA(S) OF THE HANDS 30 g 1 05/02/20 23 Active sertraline (Zoloft) 100 MG tablet TAKE 1 TABLET BY MOUTH EVERY DAY 30 tablet 1 05/13/19 24 Active buPROPion XL (Wellbutrin XL) 150 MG 24 hr tabletIndicatio ns:Overweight,D epressive disorder TAKE 1 TABLET (150 MG) BY MOUTH IN THE MORNING. DO NOT CRUSH, CHEW, OR SPLIT. 90 tablet 1 05/19/19 24 Active FLUoxetine (PROzac) 20 MG capsule Take 20 mg by mouth in the morning. 06/06/19 24 Active omeprazole (PriLOSEC) [address] capsule Take 20 mg by mouth in the morning. 07/09/19 24 Active zoster vaccine-recombi nant adjuvanted (Shingrix) 50 MCG/0.5ML vaccineIndicati ons:Primary hypertension Inject 0.5 mL (50 mcg) into the muscle 1 (one) time for 1 dose. 0.5 mL 09/10/19 25 2024 Active amLODIPine (Norvasc) 5 MG tabletIndicatio ns:Benign essential hypertension Take 1 tablet (5 mg) by mouth in the morning. 90 tablet 1 09/10/19 25 Active Dulaglutide 1.5 MG/0.5ML solution auto-injectorIn dications:Diabe gricel mellitus without complication (CMS/HCC) Inject 1.5 mg under the skin 1 (one) time per week. 0.5 mL 2 09/10/19 25 Active albuterol (Ventolin HFA) 108 (90 Base) MCG/ACT inhalerIndicati ons:Mild intermittent asthma without complication Inhale 2 puffs every 6 (six) hours if needed for wheezing. INHALE 2 PUFFS EVERY 4 HOURS IF NEEDED FOR WHEEZING. 18 g 1 09/10/19 25 Active budesonide-form oterol (Symbicort) 160-4.5 MCG/ACT inhalerIndicati ons:Mild intermittent asthma without complication Inhale 2 puffs in the morning and at bedtime. Rinse mouth with water after use to reduce aftertaste and incidence of candidiasis. Do not swallow. 1 each 09/10/19 25 2025 Active nicotine polacrilex (Nicotine Mini) 4 MG lozengeIndicati ons:Smoker Dissolve 1 lozenge (4 mg) in the mouth every 2 (two) hours if needed for smoking cessation. 100 lozenge 09/10/19 25 2024 Active Mometasone Furoate (Asmanex HFA) 100 MCG/ACT aerosol INHALE 1 PUFF BY MOUTH 2 TIMES A DAY. RINSE MOUTH WITH WATER AND SPIT OUT WATER AFTER EVERY USE 13 g 1 05/13/19 24 2024 Discontinued semaglutide (Ozempic) 2 MG/1.5ML solution pen-injectorInd ications:Diabet es mellitus without complication (CMS/HCC) Inject 0.5 mg under the skin 1 (one) time per week. 1 each 09/25/19 24 2024 Discontinued dulaglutide (Trulicity) 1.5 MG/0.5ML solution pen-injectorInd ications:Diabet es mellitus without complication (CMS/HCC) Inject 1.5 mg under the skin 1 (one) time per week. 4 each 09/30/19 24 2024 Discontinued(R eorder (will not trigger notification to Pharmacy)) amLODIPine (Norvasc) 5 MG tabletIndicatio ns:Benign essential hypertension TAKE 1 TABLET BY MOUTH EVERY DAY IN THE MORNING 90 tablet 1 05/21/19 25 2024 Discontinued(R eorder (will not trigger notification to Pharmacy)) clotrimazole-be tamethasone (Lotrisone) creamIndication s:Rash APPLY TOPICALLY 2 TIMES DAILY FOR 28 DAYS. 45 g 1 08/05/19 25 2024 albuterol (Ventolin HFA) 108 (90 Base) MCG/ACT inhalerIndicati ons:Mild intermittent asthma without complication Inhale 2 puffs every 6 (six) hours if needed for wheezing. INHALE 2 PUFFS EVERY 4 HOURS IF NEEDED FOR WHEEZING. 18 g 1 08/05/19 25 2024 Discontinued(R eorder (will not trigger notification to Pharmacy)) Active Problems Problem Noted Date Diagnosed Date Smoker 09/09/2024 Assessment & Plan (09/09/2024 3:48 PM EDT): Patient is scheduled for low-dose CT for screening of lung cancer on September 15 Smoking cessation counseling done Breast symptom 06/29/2024 Mass of upper inner quadrant of right breast Assessment & Plan (06/29/2024 2:27 PM EST): STAT ultrasound and diagnostic mammogram ordered Pt to schedule this week If inflammation increased, Return to clinic for possible early cellulitis though concerning for inflammatory malignant process given hx Pcp aware Primary hypertension 03/11/2024 Assessment & Plan (09/09/2024 3:47 PM EDT): Patient has not been taking her blood pressure medication, I advised to take it every day low-sodium diet and log blood pressure for next appointment Assessment & Plan (03/11/2024 2:14 PM EDT): - Aerobic exercise to reduce BP. Initial goal of 30 min walk 3-5x/week. Increase as tolerated. - low-sodium diet (goal: <2g/day) and heart healthy diet such as DASH to reduce BP and prevent ASCVD. - Home BP monitoring 1-2 x day with goal of <140/90. - Seek immediate medical attention for chest pain, palpitations, SOB, syncope, or sudden changes in mental status. - Do not change or discontinue current prescriptions without first consulting health care provider Mild intermittent asthma without complication Assessment & Plan (03/11/2024 2:14 PM EDT): Stable c/w albuterol PRN Rash 11/05/2023 Acute bacterial conjunctivitis of left eye 10/21 Assessment & Plan (10/22/2023 8:11 PM EDT): Avoid rubbing her eye Keep eye clear, use natural tears Rx erythromycin ointment to affected eye. Colon cancer screening 05/02/2023 Screening for lung cancer 05/02/2023 Assessment & Plan (05/02/2023 2:26 PM EST): Referral will be fax to [facility] [place] Vitamin D insufficiency 04/19/2022 Overweight 04/18/2022 BMI 31.0-31.9,adult 04/18/2022 Acute low back pain 04/11/2022 Benign essential hypertension 12/17/2021 Assessment & Plan (05/02/2023 2:26 PM EST): -c/w lisinopril 5mg daily - Aerobic exercise to reduce BP. Initial goal of 30 min walk 3-5x/week. Increase as tolerated. - low-sodium diet (goal: <2g/day) and heart healthy diet such as DASH to reduce BP and prevent ASCVD. - Home BP monitoring 1-2 x day with goal of <140/90. - Seek immediate medical attention for chest pain, palpitations, SOB, syncope, or sudden changes in mental status. - Do not change or discontinue current prescriptions without first consulting health care provider Assessment & Plan (12/26/2022 4:45 PM EDT): Patient reports she took her blood pressure medication late and that her BP is normal at home I advice to take medication every day, low Na diet and weight reduction Continue with same medication regimen for now Diabetes mellitus without complication Assessment & Plan (09/09/2024 3:47 PM EDT): Under control continue with Trulicity 1.5 mg weekly Assessment & Plan (03/11/2024 2:15 PM EDT): Diabetes is: controlled - Lab Results Component Value Date HGBA1C 5.5 03/11/2024 HGBA1C 5.5 11/05/2023 HGBA1C 5.7 05/02/2023 - Lab Results Component Value Date MICROALBUR 22.0 05/02/2023 CREATININE 0.75 05/02/2023 -Changes: I discontinue metformin - Diabetic eye exam: - Diabetic foot exam: - Continue lifestyle modifications - Continue current medications - Follow up: 3 months Assessment & Plan (11/05/2023 4:16 PM EDT): Diabetes is: controlled - Lab Results Component Value Date HGBA1C 5.5 11/05/2023 HGBA1C 5.7 05/02/2023 HGBA1C 5.7 12/26/2022 - Lab Results Component Value Date MICROALBUR 22.0 05/02/2023 CREATININE 0.75 05/02/2023 -Changes: none - Diabetic eye exam:up to date - Diabetic foot exam:up to date - Continue lifestyle modifications - Continue current medications - Follow up: 3 months Assessment & Plan (05/02/2023 2:26 PM EST): - Lab Results Component Value Date HGBA1C 5.7 12/26/2022 HGBA1C 6.3 (H) 08/17/2020 - Lab Results Component Value Date CREATININE 0.66 04/15/2022 - Diabetic eye exam: referral done - Diabetic foot exam:pending - Continue lifestyle modifications - Continue current medications Assessment & Plan (12/26/2022 4:46 PM EDT): Lab Results Component Value Date HGBA1C 5.7 12/26/2022 HGBA1C 6.3 (H) 08/17/2020 - Lab Results Component Value Date CREATININE 0.66 04/15/2022 - - Continue lifestyle modifications - Continue current medications - Callus of heel 07/28/2018 Cold feet 07/28/2018 Chronic non-infective otitis externa 10/08/2017 Dyshidrotic eczema 10/08/2017 Illiteracy 07/31/2017 Generalized anxiety disorder 11/29/2016 Abnormal thyroid blood test 09/12/2016 Microcytic anemia 09/12/2016 Carpal tunnel syndrome 10/25/2011 Depressive disorder 10/25/2011 Impaired fasting glucose 10/25/2011 Resolved Problems Problem Noted Date Diagnosed Date Resolved Date Prediabetes 11/29/2016 04/12/2022 Encounters Date Type Department Care Team Description 09/09/2024 3:15 PM EDT Office Visit [facility] [address] [place] [address] Adilene Berman MD Diabetes mellitus without complication ([facility]/HCC); Primary hypertension; Benign essential hypertension; Mild intermittent asthma without complication; Smoker 09/09/2024 Travel 09/07/2024 1:30 PM EDT Office Visit [facility] [address] [place] [address] YuanLina morillo, OD Diabetes type 2, 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) (Primary Dx); Dry eye syndrome of both eyes; Presbyopia 09/07/2024 Telephone [facility] [address] [place] [address] dAilene Berman MD Chart prep 09/07/2024 Travel 09/02/2024 Patient Outreach [facility] [address] [place] [address] Adilene Berman MD Pre-visit Planning (SDOH screening negative and Tobacco screening positive) 08/04/2024 Refill [facility] [address] [place] [address] Jacki Gonzalez NP Mild intermittent asthma without complication 08/04/2024 Refill [facility] [address] [place] [address] Adilene Berman MD Rash; Mild intermittent asthma without complication 07/23/2024 Population Health Risk Score [facility] [address] [id number] Provider, Population Health Generic 07/06/2024 Telephone [facility] [address] [place] [address] Elidia Faria NP US BREAST ORDER 07/05/2024 Telephone [facility] [address] [place] [address] Adilene Berman MD Request For Order(s) 07/05/2024 Telephone [facility] [address] [place] [address] Adilene Berman MD Call Back Request 06/30/2024 Telephone [facility] [address] [place] [address] Adilene Berman MD Referral 06/29/2024 3:00 PM EST Office Visit [facility] [address] [place] [address] Elidia Faria NP Breast symptom (Primary Dx); Mass of upper inner quadrant of right breast 06/29/2024 Telephone [facility] [address] [place] [address] Adilene Berman MD Nurse Triage 06/12/2024 Refill [facility] [address] [place], [place] [phone] Jacki Gonzalez NP Mild intermittent asthma without complication 06/12/2024 Refill [facility] [address] [place] [address] Adilene Berman MD Rash from Last 3 Months Immunizations Name Administration Dates Next Due Influenza injectable quadriv alent preservative free 04/12/2022,06/04/2019,07/28/2018 Influenza, IIV3, injectable 04/02/2011 Influenza, Split (incl. radha fied surface antigen) 01/14/2013,01/09/2012 TD (adult), 2 Lf tetanus tox oid, preservative free, adsorbed 06/16/1998 Tdap 01/14/2013 Social History Tobacco Use Types Packs/Day Years Used Date Smoking Tobacco: Every Day Cigarettes 1.5 39.3 Started: 05/12/1985 Passive Smoke Exposure: Current Smokeless Tobacco: Never Tobacco Cessation:Ready to Q uit: Not Asked; Counseling Given: Not Answered Alcohol Use Standard Drinks/Week Comments Never 0 [...] Orientation Straight 03/11/2022 10 :15 AM EDT Last Filed Vital Signs Vital Sign Reading Time Taken Comments Blood Pressure 158/94 09/09/2024 2:35 PM EDT Pulse 71 09/09/2024 2:35 PM EDT Temperature 36.1 ??C (97 ??F) 09/09/2024 2:35 PM EDT Respiratory Rate 18 06/29/2024 2:10 PM EST Oxygen Saturation 98% 09/09/2024 2:35 PM EDT Inhaled Oxygen Concentration - - Weight 70.4 kg (155 lb 2 oz) 09/09/2024 2:35 PM EDT Height 157.5 cm (5' 2 ) 09/09/2024 2:35 PM EDT Body Mass Index 28.37 09/09/2024 2:35 PM EDT Plan of Treatment Health Maintenance Due Date Last Done Comments CT Colonography 1971 Colonoscopy 1971 FIT 1971 FOBT 1971 HIV Screening 1971 Sigmoidoscopy 1971 Alcohol/Substance Use Screening 1983 Hepatitis C Screening 07/20/1989 Hepatitis B Vaccines (1 of 3 - 19+ 3-dose series) 07/20/1990 Pneumococcal Vaccine: 50+ Years (1 of 2 - PCV) 07/20/1990 Pap Smear 07/20/1992 Lung Cancer Screening 07/20/2021 Zoster Vaccines (1 of 2) 07/20/2021 DTaP/Tdap/Td Vaccines (2 - Td or Tdap) 01/14/2023 01/14/2013, 06/16/1998 COVID-19 Vaccine ( - season) 2024 Influenza Vaccine (#1) 2024 , 06/04/2019, 07/28/2018, Additional history exists Diabetes: Urine Protein Screening 05/02/2024 05/02/2023 Lipid Panel 05/02/2024 09/09/2024, 04/12, 04/15/2022, Additional history exists Diabetes: Foot Exam 11/04/2024 11/05/2023, 11/05/2023, 11/05/2023, Additional history exists Depression Screening 03/11/2025 03/11/2024, 03/11/20 Diabetes: Hemoglobin A1C 03/12/2025 025, 03/11/2024, 11/05/2023, Additional history exists Mammogram 07/09/2025 07/09/2024, 06/13, 07/09/2024 SDOH Screening 09/02/2025 09/02/2024 Tobacco Screening 09/09/2025 09/09/2024 Cervical Cancer Screening 10/11/2025 HPV/Cotest 10/11/2025 10/11/2020, 06/06/2020, 04/02/2017 Colorectal Cancer Screening 06/16/2026 FIT DNA/Cologuard 06/16/2026 06/16/2023 Eye Exam 09/07/2026 09/07/2024, 08/11, 09/07/2024, Additional history exists RSV Patients and Patients Aged 60 years or older (1 - 1-dose 75+ series) 07/20/2046 HIB Vaccines Aged Out No longer eligi ble based on patient's age to complete this topic HPV Vaccines Aged Out No longer eligi ble based on patient's age to complete this topic Hepatitis A Vaccines Aged Out No long er eligible based on patient's age to complete this topic IPV Vaccines Aged Out No longer eligi ble based on patient's age to complete this topic Meningococcal Vaccine Aged Out No rosendo adam eligible based on patient's age to complete this topic RSV under 20 months Aged Out No longe r eligible based on patient's age to complete this topic Rotavirus Vaccines Aged Out No longer eligible based on patient's age to complete this topic Procedures Procedure Name Priority Date/Time Associated Diagnosis Comments LIPID PANEL, STANDARD Routine 09/09/2024 3:43 PM EDT Diabetes mellitus without complication (CMS/HCC) COMPREHENSIVE METABOLIC PANEL Routine 09/09/2024 3:43 PM EDT Diabetes mellitus without complication (CMS/HCC) POCT GLYCATED HEMOGLOBIN, TOTAL Routine 09/09/2024 2:38 PM EDT Diabetes mellitus without complication (CMS/HCC) POCT GLUCOSE Routine 09/09/2024 2:36 PM EDT Diabetes mellitus without complication (CMS/HCC) BI US BREAST LIMITED RIGHT STAT 07/09/2024 Breast symptom Mass of upper inner quadrant of right breast LAB COLOGUARD?? COLON CANCER SCREEN Routine 06/16/2023 6:59 PM EST Colon cancer screening ALBUMIN, RANDOM URINE W/CREATININE Routine 05/02/2023 2:12 PM EST ZZZ HISTORICAL HPV E6/E7 RFLX MARISEL 16 18/45 Routine 10/11/2020 4:21 PM EDT from Last 3 Months or Most Recently Relevant to Health Maintenance Results * (ABNORMAL) Lipid Panel, Standard (09/09/2024 3:43 PM EDT) Triglycerides 151(H) <150 mg/dL [facility] Comment:Desirable Triglyceri de: less than 150 mg/dLBorderline High Triglyceride 150-199 mg/dLHigh Triglyceride: 200-499 mg/dLVery High Triglyceride: greater than or equal to 5OO mg/dL Cholesterol 234(H) <200 mg/dL [facility] Comment:Desirable Cholestero l: less than 200 mg/dLBorderline High Cholesterol: 200-239 mg/dLHigh Cholesterol: greater than 239 mg/dL LDL Cholesterol Calculated 158(H) <100 mg/dL [facility] Comment:Desirable LDL: less than 100 mg/dLNear Optimal/Above Optimal LDL: 110- 129 mg/dLBorderline High LDL: 130-159 mg/dLHigh LDL: 160-189 mg/dLVery High LDL: greater than or equal to 190 mg/dL HDL Cholesterol 46 >40 mg/dL [facility] Comment:Desirable HDL: great er than 40 mg/dL Note: This HDL assay may give artificially low results in patients with liver disease. Blood Venous blood specimen / Unknown 09/09/2024 3:43 PM EDT 09/09/2024 4:01 PM EDT us Adilene Greene MD LAB BLOOD ORDERABLES Final Result [facility] [address] [place] [phone] * (ABNORMAL) Comprehensive Metabolic Panel (09/09/2024 3:43 PM EDT) Sodium 144 135 - 145 mmol/L [facility] Potassium 4.2 3.3 - 5.1 mmol/L [facility] Chloride 107 96 - 108 mmol/L [facility] Carbon Dioxide 30(H) 22 - 29 mmol/L [facility] Anion Gap 11(L) 12 - 20 [facility] Urea Nitrogen (BUN) 8(L) 9 - 16 mg/dL [facility] Creatinine, Serum 0.71 0.5 - 1.4 mg/dL [facility] Estimated Glomerular Filt Rate >60 [facility] Comment:Chronic Kidney Disea se: Estimated GFR < 60 mL/min/1.08t0Itiosg Kidney Disease: Estimated GFR < 15 mL/min/1.73m2 Glucose 79 60 - 115 mg/dL [facility] Calcium 9.7 8.4 - 10.2 mg/dL [facility] Bilirubin, Total 0.5 0.0 - 1.0 mg/dL [facility] Aspartate Amino Transferase 20 5 - 31 U/L [facility] Alanine Aminotransferase 17 0 - 31 U/L [facility] Total Protein 7.4 6.5 - 8.0 g/dL [facility] Albumin Level 4.5 3.5 - 5.0 g/dL [facility] Alkaline Phosphatase 93 39 - 117 U/L [facility] Blood Venous blood specimen / Unknown 09/09/2024 3:43 PM EDT 09/09/2024 4:01 PM EDT Adilene Greene MD LAB BLOOD ORDERABLES Final Result [facility] [address] [place], [place] [phone] * POCT HGB A1C (09/09/2024 2:38 PM EDT) Hemoglobin A1C 5.4 4.0 - 6.0 % QC Media Lot # [id number] Lot# Expiration Date [id number] Blood 09/09/2024 2:38 PM EDT Adilene Greene MD POINT OF CARE TEST EN TER/EDIT ORDERABLES Final Result * POCT Glucose (09/09/2024 2:36 PM EDT) Glucose Blood, POC 123 60 - 200 mg/dL QC Media Lot # [id number] Lot# Expiration Date [id number] Blood Capillary blood specimen / Unknown 09/09/2024 2:36 PM EDT us Adilene Greene MD POINT OF CARE TEST EN TER/EDIT ORDERABLES Final Result * BI US Breast Limited Right (07/09/2024) Anatomical Region Laterality Modality Breast Right Ultrasound us Elidia Faria NP IMG US PROCEDURES Final Result * Cologuard?? colon cancer screening (06/16/2023 6:59 PM EST) Cologuard Result Negative Negative 06/26/19 24 5:44 AM EST [facility] (CLIA #:[id number]) Comment: NEGATIVE TEST RESULT. A negative Cologuard result indicates a low likelihood that a colorectal cancer (CRC) or advanced adenoma (adenomatous polyps with more advanced pre-malignant features) ??is present. The chance that a person with a negative Cologuard test has a colorectal cancer is less than 1 in 1500 (negative predictive value >99.9%) or has an ??advanced adenoma is less than ??5.3% (negative predictive value 94.7%). These data are based on a prospective cross-sectional study of 10,000 individuals at average risk for colorectal cancer who were screened with both Cologuard and colonoscopy. (Loulou Greco et al, N Engl J Med 2014;370(14):1286- 1297) The normal value (reference range) for this assay is negative. COLOGUARD RE-SCREENING RECOMMENDATION: Periodic colorectal cancer screening is an important part of preventive healthcare for asymptomatic individuals at average risk for colorectal cancer. ??Following a negative Cologuard result, the [place] [employer] and U.S. Multi-Society Task Force screening guidelines recommend a Cologuard re-screening interval of 3 years. References: [place] [employer] Guideline for Colorectal Cancer Screening: https://www.cancer.org/cancer/vbcyh-bqmhsm-ybmwbt/hkuzvsyqe-zzcqyywiy-uocqqsm/ac s-rec ommendations.html.; Beto MONTERO, Gilda CR, Keshia DonovanK, Colorectal Cancer Screening: Recommendations for Physicians and Patients from the U.S. Multi-Society Task Force on Colorectal Cancer Screening , Am J Gastroenterology 2017; 112:8235-4168. TEST DESCRIPTION: Composite algorithmic analysis of stool DNA-biomarkers with hemoglobin immunoassay. ?? Quantitative values of individual biomarkers are not reportable and are not associated with individual biomarker result reference ranges. Cologuard is intended for colorectal cancer screening of adults of either sex, 45 years or older, who are at average-risk for colorectal cancer (CRC). Cologuard has been approved for use by the U.S. FDA. The performance of Cologuard was established in a cross sectional study of average-risk adults aged 50-84. Cologuard performance in patients ages 45 to 49 years was estimated by sub-group analysis of near-age groups. Colonoscopies performed for a positive result may find as the most clinically significant lesion: colorectal cancer [4.0%], advanced adenoma (including sessile serrated polyps greater than or equal to 1cm diameter) [20%] or non- advanced adenoma [31%]; or no colorectal neoplasia [45%]. These estimates are derived from a prospective cross-sectional screening study of 10,000 individuals at average risk for colorectal cancer who were screened with both Cologuard and colonoscopy. (Loulou Estrada al, N Engl J Med 2014;370(14):4093-3362.) Cologuard may produce a false negative or false positive result (no colorectal cancer or precancerous polyp present at colonoscopy follow up). A negative Cologuard test result does not guarantee the absence of CRC or advanced adenoma (pre-cancer). The current Cologuard screening interval is every 3 years. ([place] [employer] and U.S. Multi-Society Task Force). Cologuard performance data in a 10,000 patient pivotal study using colonoscopy as the reference method can be accessed at the following location: www.[employer]/results. Additional description of the Cologuard test process, warnings and precautions can be found at www.[employer].com. Stool specimen (specimen) 06/16/2023 6:59 PM EST 06/18/2023 2:46 PM EST us Adilene Greene MD LAB MOLECULAR DIAGNOS TICS ORDERABLES Final Result [facility] (CLIA #:[id number]) [address] [place] [address], * Albumin, Random Urine W/Creatinine (05/02/2023 2:12 PM EST) Creatinine, Urine 288.50 mg/dL [facility] Microalbumin Urine 22.0 mg/L [facility] Microalbum Creatinine Ratio Ur 7.6 <30 ug/mg cr [facility] Comment:Albumin/Creatinine R atio Reference Ranges: Normal: < 30 ug/mg creatinine Microalbuminuria: 30 - 300 ug/mg creatinineClinical Albuminuria: > 300 ug/mg creatinine 05/02/2023 2:12 PM EST 05/02/2023 4:13 PM EST Adilene Greene MD LAB URINE ORDERABLES Final Result Performing Organization Address [facility] Co de Phone Number [facility] [address] [place] [address] [phone] * HPV E6/E7 RFLX MARISEL 16 18/45 (10/11/2020 4:21 PM EDT) HPV mRNA E6/E7 rflx Not Detected Not Detected [facility] Comment: Methodology: Administrative Coordinator-Mediated Amplification This assay detects E6/E7 viral messenger RNA (mRNA) from 14 high-risk HPV types (16,18,31,33,35,39,45,51,52,56,58,59,66,68). The analytical performance characteristics of this assay have been determined by [employer]. The modifications have not been cleared or approved by the FDA. This assay has been validated pursuant to the CLIA regulations and is used for clinical purposes. For additional information, please refer to http://education.Faveous/faq/SGV464q6 (This link if provided for information/ educational purposes only.) THIS TEST WAS PERFORMED AT: [facility] [address] [place] [address],[address] [place], [place] ??[phone] NANCI HANSON MD 10/11/2020 4:21 PM EDT us Marvin Ojeda MD HISTORICAL/NON ORDERABLE LABS Fi nal Result [facility] [address] [place] [address], from Last 3 Months or Most Recently Relevant to Health Maintenance Insurance [facility] C3 Care Teams Counseling Case Manager Relationship Specialty Start Date End Date Adilene Berman MD [address] [place] [phone] PCP - General Internal Medicine 07/11/22
--- OUTSIDE RECORDS SUMMARY | 2024-09-09 17:19 | XMS_ITS | Encounter Summary ---
Author Organization [employer] Address [address] [facility] 7t [place] [address] Care Team Providers Care Stripper Shovel Operator Name Role Phone Adilene Berman MD Primary Care Provide r Reason for Visit * Reason Onset Date Comments Chart prep 09/07/2024 Encounter Details Date Type Department Care Team ([facility] st Contact Info) Description 09/07/2024 Telephone [facility] MEDICINE [address] [place] [address] Adilene Berman MD [address] [place] [address] Chart prep Social History Tobacco Use Types Packs/Day Years [...] encounter Miscellaneous Notes * Telephone Encounter - Bertha Gross MA - 09/07/2024 1:37 PM EDT Chart Prep Labs: not done Images: done Referrals: complete Vaccines due: Covid, PCV20, Tdap, and Hep B Screenings: STI screening and Lung CA screening Overdue care gaps: A1c, Glucose, and Disability screen documented in this encounter Plan of Treatment Not on file documented as of this encounter Visit Diagnoses Not on filedocumented in this encounter Additional Health Concerns Assessment Noted Time PHQ-9 Depression Total Score: 0 03/11/20 24 1:33 PM EDT documented as of this encounter Care Teams Stripper Shovel Operator Relationship Specialty Start Date End Date Adileen Berman MD [address] [place] [address] PCP - General Internal Medicine 07/11/22 documented as of this encounter
--- OUTSIDE RECORDS SUMMARY | 2024-09-09 17:19 | XMS_ITS | Clinical Summary ---
Author Organization [facility] Address [address] [place] [phone] Phone Care Team Providers Care Geothermal Powerplant Mechanic Name Role Phone Adilene Berman MD Primary Care Provide r Encounters Date Type Department Care Team Description 07/09/2024 8:20 AM EST - 07/09/2024 11:59 PM EST Hospital Encounter [facility] Ultrasound [address] [place] [phone] Unspecified lump in the right breast, upper inner quadrant Discharge Disposition: Home or Self Care 07/09/2024 7:46 AM EST - 07/09/2024 11:59 PM EST Hospital Encounter [facility] [address] [phone] Other signs and symptoms in breast; Mass of upper inner quadrant of right breast Discharge Disposition: Home or Self Care from Last 3 Months Surgical History Surgery Date Site/Laterality Comments STEREOTACTIC CORE BIOPSY Bilateral BREAST LUMPECTOMY Right Medical History Medical History Date Comments Breast cancer (CMS/HCC V24, CMS/HCC V28) RIGHT BREAST 2007 Family History Medical History Relation Name Comments Breast cancer Mother's Sister Relation Name Status Comments Mother's Sister Social History Tobacco Use Types Packs/Day Years Used Date Smoking Tobacco: Never Assessed Comments Unknown Sex and Gender Information Value Date Recorded Sex Assigned at Female 05/24/2024 8:52 AM EST Legal Sex Female 5:44 AM EST Gender Identity Female 05/24/2024 8:52 AM EST Sexual Orientation Straight 05/24/2024 8: 52 AM EST Obstetrics History Para Term AB IAB SAB Ectopic Multiple Livin g Live Births 5 Last Filed Vital Signs Vital Sign Reading Time Taken Comments Blood Pressure - - Pulse - - Temperature - - Respiratory Rate - - Oxygen Saturation - - Inhaled Oxygen Concentration - - Weight 67.1 kg (148 lb) 07/09/2024 7:56 AM EST Height 157.5 cm (5' 2 ) 07/09/2024 7:56 AM EST Body Mass Index 27.07 07/09/2024 7:56 AM EST Plan of Treatment Health Maintenance Due Date Last Done Comments Diabetes: Annual GFR (Glomerular Filtration Rate) 1971 Diabetes: Annual Foot Exam 07/20/1981 Diabetes: Annual Retina Eye Exam 07/20/1981 Hepatitis B Vaccines (1 of 3 - 19+ 3-dose series) 07/20/1990 Pneumococcal Vaccine: 50+ Years (1 of 2 - PCV) 07/20/1990 Pneumococcal Vaccine: Pediatrics (0 to 5 Years) and At-Risk Patients (6 to 64 Years) (1 of 2 - PCV) 07/20/1990 Cervical Cancer Screening: Pap Smear 07/20/1992 Zoster Vaccines (1 of 2) 07/20/2021 HIV Screening 04/12/2022 Hepatitis C Screening 04/12/2022 Lung Cancer Screening (Low Dose CT) 04/12/2022 Social Influencers of Health Screening 04/12/2022 DTaP,Tdap,and Td Vaccines (3 - Td or Tdap) 01/14/2023 01/14/2013, 06/16/1998 COVID-19 Vaccine ( season) 2024 Diabetes: Annual Urine Albumin-Creatinine Ratio (uACR) 06/28/2024 Hypertension/CHF/CAD Annual BMP Blood Test 06/28/2024 Diabetes: Blood Sugar Control Test (HGBA1C) 09/08/2024 03/11/2024 Influenza Vaccine (Season Ended) 2025 04/12/2022, 06/04/2019, 07/28/2018, Additional history exists Depression Screening 03/11/2025 03/11/2024 Colorectal Cancer Screening: FIT-DNA (Cologuard) 06/16/2026 06/16/2023 Breast Cancer Screening 07/09/2026 07/09/19, 06/17/2023, 06/10/2022, Additional history exists Cholesterol Screening (Lipid Panel) 05/02/2028 05/02/2023 HIB Vaccines Aged Out No longer eligi [...] on patient's age to complete this topic MMR Vaccines Aged Out No longer eligi ble based on patient's age to complete this topic Meningococcal ACWY Vaccine Aged Out N o longer eligible based on patient's age to complete this topic Meningococcal B Vaccine Aged Out No l onger eligible based on patient's age to complete this topic RSV Immunization Patients Under 20 months Aged Out No longer eligible based on patient's age to complete this topic Varicella Vaccines Aged Out No longer eligible based on patient's age to complete this topic Procedures Procedure Name Priority Date/Time Associated Diagnosis Comments MG MAMMO DIGITAL DIAGNOSTIC W ROD BILAT Routine 07/09/2024 8:57 AM EST Other signs and symptoms in breast Mass of upper inner quadrant of right breast US BREAST LIMITED RIGHT Routine 07/09/2024 8:57 AM EST Unspecified lump in the right breast, upper inner quadrant from Last 3 Months Results * MG Mammo Digital Diagnostic w Rod bilat (07/09/2024 8:57 AM EST) Anatomical Region Laterality Modality Breast Bilateral Mammography 07/09/2024 9:01 AM EST Impressions 07/09/2024 9:08 AM EST Stable post lumpectomy site in the 1 o'clock region 8 cm from the right nipple. ?? This correlates to the area of clinical concern. No suspicious ultrasound findings. A negative mammogram in the presence of a clinically suspicious palpable abnormality does not preclude the possibility of malignancy or alter the indications for biopsy. ??The patient should be managed on the basis of the clinical breast exam ASSESSMENT: ?? BI-RADS 2: BENIGN RECOMMENDATION(S): 1: Clinical correlation recommended RIGHT [facility] [address], [address] -------- FINAL REPORT -------- Dictated By: Dalton Hull Dictated Date: 07/09/2024 09:01 ET Assigned Physician: Dalton Hull Reviewed and Electronically Signed By: Dalton Hull Signed Date: 07/09/2024 09:08 ET Workstation ID: [id number] Transcribed By: Self Edit Transcribed Date: 07/09/2024 09:04 ET Narrative 07/09/2024 9:08 AM EST EXAM: ??DIAGNOSTIC MAMMOGRAPHY, BILATERAL ULTRASOUND: DIAGNOSTIC ULTRASOUND, UNILATERAL RIGHT HISTORY: ??Abnormal clinical breast exam. ??Palpable abnormality upper inner right breast at site of previous lumpectomy. Personal history of lumpectomy for right breast cancer. ??Patient reports 40-50 pound weight loss. COMPARISON: ??06/17/2023, 06/10/2022, 06/08/2021, 06/06/2020, 04/27/2015 TECHNIQUE: Synthesized CC and MLO projections of each breast. ??Tomosynthesis of each breast in the CC and MLO projections. ADDITIONAL IMAGING: None High-frequency linear transducer ultrasound of the right breast targeted to the area of clinical concern. Computer-aided detection was employed with the iCAD ??profound AI 3-D. TISSUE DENSITY: There are scattered areas of fibroglandular density. (BI-RADS category B) FINDINGS: MAMMOGRAPHY: RIGHT BREAST: There is an irregular focal asymmetry at the lumpectomy site. ??This has some internal fat lucency. ??The appearance is similar to 2015. ??There are some adjacent dystrophic calcifications. There are surgical clips in the right axilla. There are no new suspicious right breast findings LEFT BREAST: No suspicious mass. No suspicious calcification. No distortion. ?? No change in the region of a biopsy site marker in the upper outer left breast. ULTRASOUND: RIGHT BREAST Area of clinical concern 1 o'clock position, 8 cm from right nipple There is a rounded hypoechoic area with attenuation of sound immediately deep to the lumpectomy scar. ??This correlates to the area of clinical concern. ??This is smaller than ultrasound 04/27/2015. There is an adjacent round shadowing calcification which has a mammographic correlate and has typically benign features. There is no suspicious mass or suspicious area of altered echotexture. Procedure Note Dalton Hull MD - 07/09/2024 EXAM: DIAGNOSTIC MAMMOGRAPHY, BILATERAL ULTRASOUND: DIAGNOSTIC ULTRASOUND, UNILATERAL RIGHT HISTORY: Abnormal clinical breast exam. Palpable abnormality upper innerright breast at site of previous lumpectomy. Personal history of lumpectomy for right breast cancer. Patient -44 pound weight loss. COMPARISON: 06/17/2023, 06/10/2022, 06/08/2021, 06/06/2020, 04/27/2015 TECHNIQUE: Synthesized CC and MLO projections of each breast.Tomosynthesis of each breast in the CC and MLO projections. ADDITIONAL IMAGING: None High-frequency linear transducer ultrasound of the right breast targetedto the area of clinical concern. Computer-aided detection was employed with the [employer] AI 3-D. TISSUE DENSITY: There are scattered areas of fibroglandular density.(BI-RADS category B) FINDINGS: MAMMOGRAPHY: RIGHT BREAST: There is an irregular focal asymmetry at the lumpectomy site. This hassome internal fat lucency. The appearance is similar to 2015. There aresome adjacent dystrophic calcifications. There are surgical clips in the right axilla. There are no new suspicious right breast findings LEFT BREAST: No suspicious mass. No suspicious calcification. No distortion. Nochange in the region of a biopsy site marker in the upper outer leftbreast. ULTRASOUND: RIGHT BREAST Area of clinical concern 1 o'clock position, 8 cm from right nipple There is a rounded hypoechoic area with attenuation of sound immediatelydeep to the lumpectomy scar. This correlates to the area of clinicalconcern. This is smaller than ultrasound 04/27/2015. There is an adjacent round shadowing calcification which has amammographic correlate and has typically benign features. There is no suspicious mass or suspicious area of altered echotexture. IMPRESSION: Stable post lumpectomy site in the 1 o'clock region 8 cm from the rightnipple. This correlates to the area of clinical concern. No suspicious ultrasound findings. A negative mammogram in the presence of a clinically suspicious palpableabnormality does not preclude the possibility of malignancy or alter theindications for biopsy. The patient should be managed on the basis of theclinical breast exam ASSESSMENT: BI-RADS 2: BENIGN RECOMMENDATION(S): 1: Clinical correlation recommended RIGHT Mammography location: [facility] at [address], [address] -------- FINAL REPORT -------- Dictated By: Dalton Hull Dictated Date: 07/09/2024 09:01 ET Assigned Physician: Dalton Hull Reviewed and Electronically Signed By: Dalton Hull Signed Date: 07/09/2024 09:08 ET Workstation ID: [id number] Transcribed By: Self Edit Transcribed Date: 07/09/2024 09:04 ET us Elidia Faria TRAVEL ACCOMMODATION INSPECTOR IMG BI PROCEDURES Final Result * US Breast Limited Right (07/09/2024 8:57 AM EST) Anatomical Region Laterality Modality Breast Right Ultrasound 07/09/2024 9:01 AM EST Impressions 07/09/2024 9:08 AM EST Stable post lumpectomy site in the 1 o'clock region 8 cm from the right nipple. ?? This correlates to the area of clinical concern. No suspicious ultrasound findings. A negative mammogram in the presence of a clinically suspicious palpable abnormality does not preclude the possibility of malignancy or alter the indications for biopsy. ??The patient should be managed on the basis of the clinical breast exam ASSESSMENT: ?? BI-RADS 2: BENIGN RECOMMENDATION(S): 1: Clinical correlation recommended RIGHT Mammography location: [facility] at [address], [address] -------- FINAL REPORT -------- Dictated By: Dalton Hull Dictated Date: 07/09/2024 09:01 ET Assigned Physician: Dalton Hull Reviewed and Electronically Signed By: Dalton Hull Signed Date: 07/09/2024 09:08 ET Workstation ID: [id number] Transcribed By: Self Edit Transcribed Date: 07/09/2024 09:04 ET Narrative 07/09/2024 9:08 AM EST EXAM: ??DIAGNOSTIC MAMMOGRAPHY, BILATERAL ULTRASOUND: DIAGNOSTIC ULTRASOUND, UNILATERAL RIGHT HISTORY: ??Abnormal clinical breast exam. ??Palpable abnormality upper inner right breast at site of previous lumpectomy. Personal history of lumpectomy for right breast cancer. ??Patient reports 40-50 pound weight loss. COMPARISON: ??06/17/2023, 06/10/2022, 06/08/2021, 06/06/2020, 04/27/2015 TECHNIQUE: Synthesized CC and MLO projections of each breast. ??Tomosynthesis of each breast in the CC and MLO projections. ADDITIONAL IMAGING: None High-frequency linear transducer ultrasound of the right breast targeted to the area of clinical concern. Computer-aided detection was employed with the iCAD ??profound AI 3-D. TISSUE DENSITY: There are scattered areas of fibroglandular density. (BI-RADS category B) FINDINGS: MAMMOGRAPHY: RIGHT BREAST: There is an irregular focal asymmetry at the lumpectomy site. ??This has some internal fat lucency. ??The appearance is similar to 2015. ??There are some adjacent dystrophic calcifications. There are surgical clips in the right axilla. There are no new suspicious right breast findings LEFT BREAST: No suspicious mass. No suspicious calcification. No distortion. ?? No change in the region of a biopsy site marker in the upper outer left breast. ULTRASOUND: RIGHT BREAST Area of clinical concern 1 o'clock position, 8 cm from right nipple There is a rounded hypoechoic area with attenuation of sound immediately deep to the lumpectomy scar. ??This correlates to the area of clinical concern. ??This is smaller than ultrasound 04/27/2015. There is an adjacent round shadowing calcification which has a mammographic correlate and has typically benign features. There is no suspicious mass or suspicious area of altered echotexture. Procedure Note Dalton Hull MD - 07/09/2024 EXAM: DIAGNOSTIC MAMMOGRAPHY, BILATERAL ULTRASOUND: DIAGNOSTIC ULTRASOUND, UNILATERAL RIGHT HISTORY: Abnormal clinical breast exam. Palpable abnormality upper innerright breast at site of previous lumpectomy. Personal history of lumpectomy for right breast cancer. Patient -34 pound weight loss. COMPARISON: 06/17/2023, 06/10/2022, 06/08/2021, 06/06/2020, 04/27/2015 TECHNIQUE: Synthesized CC and MLO projections of each breast.Tomosynthesis of each breast in the CC and MLO projections. ADDITIONAL IMAGING: None High-frequency linear transducer ultrasound of the right breast targetedto the area of clinical concern. Computer-aided detection was employed with the [employer] AI 3-D. TISSUE DENSITY: There are scattered areas of fibroglandular density.(BI-RADS category B) FINDINGS: MAMMOGRAPHY: RIGHT BREAST: There is an irregular focal asymmetry at the lumpectomy site. This hassome internal fat lucency. The appearance is similar to 2015. There aresome adjacent dystrophic calcifications. There are surgical clips in the right axilla. There are no new suspicious right breast findings LEFT BREAST: No suspicious mass. No suspicious calcification. No distortion. Nochange in the region of a biopsy site marker in the upper outer leftbreast. ULTRASOUND: RIGHT BREAST Area of clinical concern 1 o'clock position, 8 cm from right nipple There is a rounded hypoechoic area with attenuation of sound immediatelydeep to the lumpectomy scar. This correlates to the area of clinicalconcern. This is smaller than ultrasound 04/27/2015. There is an adjacent round shadowing calcification which has amammographic correlate and has typically benign features. There is no suspicious mass or suspicious area of altered echotexture. IMPRESSION: Stable post lumpectomy site in the 1 o'clock region 8 cm from the rightnipple. This correlates to the area of clinical concern. No suspicious ultrasound findings. A negative mammogram in the presence of a clinically suspicious palpableabnormality does not preclude the possibility of malignancy or alter theindications for biopsy. The patient should be managed on the basis of theclinical breast exam ASSESSMENT: BI-RADS 2: BENIGN RECOMMENDATION(S): 1: Clinical correlation recommended RIGHT [facility] [address], [address] -------- FINAL REPORT -------- Dictated By: Dalton Hull Dictated Date: 07/09/2024 09:01 ET Assigned Physician: Dalton Hull Reviewed and Electronically Signed By: Dalton Hull Signed Date: 07/09/2024 09:08 ET Workstation ID: [id number] Transcribed By: Self Edit Transcribed Date: 07/09/2024 09:04 ET us Elidia Faria TRAVEL ACCOMMODATION INSPECTOR IMG US PROCEDURES Final Result from Last 3 Months Insurance MED[place]ID - [place] Member Subscriber Plan / Payer (Ef fective 2024-Present) Name:Fatmata An Relation to Subscriber:Self Name:Fatmata An Payer ID:[id number] Group ID:Not on file Type:Not on file Address: [facility] [employer] [place] ATTN:[employer] [address] [place] [address] Care Teams Geothermal Powerplant Mechanic Relationship Specialty Start Date End Date Adilene Berman MD [address] [place] [phone] PCP - General Internal Medicine 05/24/24
--- OUTSIDE RECORDS SUMMARY | 2024-09-09 17:19 | XMS_ITS | Encounter Summary ---
Author Organization [employer] Address [address] [facility] 7t [place] [address] Care Team Providers Care Brazing Machine Operator Helper Name Role Phone Adilene Berman MD Primary Care Provide r Reason for Visit * Reason Onset Date Comments Call Back Request 07/05/2024 Encounter Details Date Type Department Care Team ([facility] st Contact Info) Description 07/05/2024 Telephone [facility] MED[facility] [address] [place] [address] Adilene Berman MD [address] [place] [address] Call Back Request Social History Tobacco Use Types Packs/Day Years [...] encounter Miscellaneous Notes * Telephone Encounter - Essence Mendez - 07/05/2024 10:27 AM EST Tc from pt requesting to speak to sow manager as she requested status of referral for location to get changed from [facility] to [facility]. [employer] advised location to be change takes 7-14 business days as same thing requesting new referral for anything else. Pt requested sow manager to contact her back as pt states is ridiculous how long it takes. [phone] documented in this encounter Plan of Treatment Not on file documented as of this encounter Visit Diagnoses Not on filedocumented in this encounter Additional Health Concerns Assessment Noted Time PHQ-9 Depression Total Score: 0 03/11/20 1:33 PM EDT documented as of this encounter Care Teams Brazing Machine Operator Helper Relationship Specialty Start Date End Date Adilene Berman MD [address] [place] [address] PCP - General Internal Medicine 07/11/22 documented as of this encounter
--- OUTSIDE RECORDS SUMMARY | 2024-09-09 17:19 | XMS_ITS | Encounter Summary ---
Author Organization [employer] Address [address] [facility] 7t [place] [address] Care Team Providers Care Operations Research Group Manager Name Role Phone Helen Weinstein Primary Care Provider Adilene Lopez MD Primary Care Provide r Encounter Details Date Type Department Care Team (Late st Contact Info) Description 06/11/2022 Orders Only [facility] MED[facility] [address] [place] [address] Helen Weinstein FNP Social History Tobacco Use Types Packs/Day Years Used Date Smoking Tobacco: Every Day Cigarettes Smokeless Tobacco: Current Alcohol Use Standard Drinks/Week Comments Never 0 (1 standard drink = 0.6 oz pur e alcohol) Depression Answer Date Recorded Patient Health Questionnaire-9 Score 15 04/12/2022 Depression Answer Date Recorded Patient Health Questionnaire-2 [...] documented as of this encounter Care Teams Operations Research Group Manager Relationship Specialty Start Date End Date Helen Weinstein FNP PCP - General Family Medicine 04/10/22 07/10/22 Adilene Berman MD [address] [place] [phone] PCP - General Internal Medicine 07/11/22 documented as of this encounter
--- OUTSIDE RECORDS SUMMARY | 2024-09-09 17:19 | XMS_ITS | Encounter Summary ---
Author Organization [employer] Address [address] [facility] [address] 7[address] [place] [address] Care Team Providers Care Manager Fashion Name Role Phone Adilene Berman MD Primary Care Provide r Reason for Visit * Reason Comments Med Refill Encounter Details Date Type Department Care Team ([facility] st Contact Info) Description 04/14/2023 Refill [facility] MED[facility] [address] [place] [address] Helen Weinstein FNP Diabetes mellitus without complication (CMS/HCC) Social History [...] housing situation today? I have young earl 02/26/[address] you [...] Visit Diagnoses Diagnosis Diabetes mellitus without complication (CMS/HCC) Type II or unspecified type diabetes mellitus without mention of complication, not stated as uncontrolled documented in this encounter Additional Health Concerns Assessment Noted Time PHQ-9 Depression Total Score: 15 022 1:49 PM EST documented as of this encounter Care Teams Manager Fashion Relationship Specialty Start Date End Date Adilene Berman MD [address] [place] [phone] PCP - General Internal Medicine 07/11/22 documented as of this encounter
--- OUTSIDE RECORDS SUMMARY | 2024-09-09 17:19 | XMS_ITS | Encounter Summary ---
Author Organization [employer] Address [address] [facility] [address] 7t [place] [address] Care Team Providers Care Medical Insurance Collector Name Role Phone Adilene Berman MD Primary Care Provide r Reason for Visit * Reason Comments Diabetic Eye Exam Encounter Details Date Type Department Care Team (Late st Contact Info) Description 09/07/2024 1:30 PM EDT Office Visit [facility] [address] [place] [address] Yuan, Lina, OD [address] [place] [address] Diabetes type 2, 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) (Primary Dx); Dry eye syndrome of both eyes; Presbyopia Social History Tobacco Use Types Packs/Day Years [...] of this encounter Visit Diagnoses Diagnosis Diabetes type 2, no ocular involvement (CMS/[facility])- Primary Dry eye syndrome of both eyes Presbyopia documented in this encounter Additional Health Concerns Assessment Noted Time PHQ-9 Depression Total Score: 0 03/11/20 24 1:33 PM EDT documented as of this encounter Care Teams Medical Insurance Collector Relationship Specialty Start Date End Date Adilene Berman MD [address] [place] [id number] PCP - General Internal Medicine 07/11/22 documented as of this encounter
--- OUTSIDE RECORDS SUMMARY | 2024-09-09 17:19 | XMS_ITS | Encounter Summary ---
Author Organization [employer] Address [address] [facility] 7t [place] [address] Care Team Providers Care Industrial Illuminating Engineer Name Role Phone Adilene Berman MD Primary Care Provide r Reason for Visit * Reason Comments Med Refill Encounter Details Date Type Department Care Team ([facility] st Contact Info) Description 05/19/2023 Refill [facility] [address] [place], [place] [phone] Adilene Berman MD [address] [place], [place] [phone] Dyshidrotic eczema Social History Tobacco Use Types Packs/Day Years [...] as of this encounter Visit Diagnoses Diagnosis Dyshidrotic eczema documented in this encounter Additional Health Concerns Assessment Noted Time PHQ-9 Depression Total Score: 15 022 1:49 PM EST documented as of this encounter Care Teams Industrial Illuminating Engineer Relationship Specialty Start Date End Date Adilene Berman MD [address] [place] [address] PCP - General Internal Medicine 07/11/22 documented as of this encounter
--- OUTSIDE RECORDS SUMMARY | 2024-09-09 17:19 | XMS_ITS | Encounter Summary ---
Author Organization [employer] Address [address] [facility] 7t [place] [address] Care Team Providers Care Research Support Specialist Name Role Phone Helen Weinstein Primary Care Provider Adilene Lopez MD Primary Care Provide r Encounter Details Date Type Department Care Team ([facility] st Contact Info) Description 04/16/2022 Orders Only [facility] MED[facility]INE [address] [place] [address] Helen Weinstein FNP Social History Tobacco Use [...] Orientation Straight 03/11/2022 10 :15 AM EDT COVID-19 Exposure Response Date Recorded In the last 10 days, have yo u been in contact with someone who was confirmed or suspected to have Coronavirus/COVID-19? No / Unsure 04/12/2022 1:31 PM EST documented as of this encounter Plan of Treatment Not on file documented as of this encounter Visit Diagnoses Not on filedocumented in this encounter Additional Health Concerns Assessment Noted Time PHQ-9 Depression Total Score: 15 022 1:49 PM EST documented as of this encounter Care Teams Research Support Specialist Relationship Specialty Start Date End Date Helen Weinstein FNP PCP - General Family Medicine 04/10/22 07/10/22 Adilene Berman MD 230 [place] [address] PCP - General Internal Medicine 07/11/22 documented as of this encounter
--- OUTSIDE RECORDS SUMMARY | 2024-09-09 17:19 | XMS_ITS | Encounter Summary ---
Author Organization [employer] Address [address] [facility] 7t [place] [address] Care Team Providers Care Rheologist Name Role Phone Adilene Berman MD Primary Care Provide r Reason for Visit * Reason Onset Date Comments Med Refill 05/13/2023 Encounter Details Date Type Department Care Team ([facility] st Contact Info) Description 05/13/2023 Telephone [facility] MED[facility]INE [address] [place] [address] Adilene Berman MD [address] [place], [place] [phone] Med Refill Social History Tobacco Use Types Packs/Day Years [...] encounter Miscellaneous Notes * Telephone Encounter - Ludmila Cantu LPN - 05/13/2023 12:35 PM EST Medication pended to PCP. * Telephone Encounter - Emory Spence - 05/13/2023 12:31 PM EST TC from pt requesting medication refill. Medications needing refill : dulaglutide (Trulicity) 3 MG/0.5ML solution pen-injector To be sent to: [facility]/pharmacy #[id number] documented in this encounter Plan of Treatment Not on file documented as of this encounter Visit Diagnoses Not on filedocumented in this encounter Additional Health Concerns Assessment Noted Time PHQ-9 Depression Total Score: 15 022 1:49 PM EST documented as of this encounter Care Teams Rheologist Relationship Specialty Start Date End Date Adilene Berman MD [address] [place] [address] PCP - General Internal Medicine 07/11/22 documented as of this encounter
--- OUTSIDE RECORDS SUMMARY | 2024-09-09 17:19 | XMS_ITS | Encounter Summary ---
Author Organization [email or web address] Address [address] [facility] 7t [place] [address] Care Team Providers Care Hair Stylist Name Role Phone Adilene Berman MD Primary Care Provide r Reason for Visit * Reason Comments Med Refill Encounter Details Date Type Department Care Team ([facility] st Contact Info) Description 10/10/2023 Refill [facility] MEDICINE [address] [place], [place] [phone] Adilene Berman MD [address] [place], [place] [phone] Diabetes mellitus without complication (CMS/HCC) Social History [...] Visit Diagnoses Diagnosis Diabetes mellitus without complication (CMS/[facility]) Type II or unspecified type diabetes mellitus without mention of complication, not stated as uncontrolled documented in this encounter Additional Health Concerns Assessment Noted Time PHQ-9 Depression Total Score: 15 022 1:49 PM EST documented as of this encounter Care Teams Hair Stylist Relationship Specialty Start Date End Date Adilene Berman MD [address] [place] [address] PCP - General Internal Medicine 07/11/22 documented as of this encounter
--- OUTSIDE RECORDS SUMMARY | 2024-09-09 17:19 | XMS_ITS | Encounter Summary ---
Author Organization [employer] Address 75 [facility] 7t [place] [address] Care Team Providers Care Carrier Operator Name Role Phone Adilene Berman MD Primary Care Provide r Reason for Visit * Reason Comments Med Refill Encounter Details Date Type Department Care Team ([facility] st Contact Info) Description 06/12/2024 Refill [facility] 230 [place], [place] [phone] Adilene Berman MD 230 [place] [address] Rash Social History Tobacco Use Types Packs/Day Years [...] is your housing situation today? I have yuong earl 03/04/[address] you [...] as of this encounter Visit Diagnoses Diagnosis Rash Rash and other nonspecific skin eruption documented in this encounter Additional Health Concerns Assessment Noted Time PHQ-9 Depression Total Score: 0 03/11/20 24 1:33 PM EDT documented as of this encounter Care Teams Carrier Operator Relationship Specialty Start Date End Date Adilene Berman MD [address] [place] [id number] PCP - General Internal Medicine 07/11/22 documented as of this encounter
--- OUTSIDE RECORDS SUMMARY | 2024-09-09 17:19 | XMS_ITS | Encounter Summary ---
Author Organization [employer] Address [address] [facility] 7t [place] [address] Care Team Providers Care Reservoir Engineering Consultant Name Role Phone Adilene Berman MD Primary Care Provide r Reason for Visit * Reason Comments Med Refill Encounter Details Date Type Department Care Team ([facility] st Contact Info) Description 05/12/2023 Refill [facility] MED[facility] 230 [place], [place] [phone] Adilene Berman MD 230 [place] [address] Asthma, unspecified asthma severity, unspecified whether complicated, unspecified whether persistent Social History Tobacco Use Types Packs/Day Years [...] as of this encounter Visit Diagnoses Diagnosis Asthma, unspecified asthma severity, unspecified whether complicated, unspecified whether persistent documented in this encounter Additional Health Concerns Assessment Noted Time PHQ-9 Depression Total Score: 15 022 1:49 PM EST documented as of this encounter Care Teams Reservoir Engineering Consultant Relationship Specialty Start Date End Date Adilene Berman MD [address] [place] [phone] PCP - General Internal Medicine 07/11/22 documented as of this encounter
--- OUTSIDE RECORDS SUMMARY | 2024-09-09 17:19 | XMS_ITS | Encounter Summary ---
Author Organization [employer] Address [address] [facility] 7t [place] [address] Care Team Providers Care Preparation Center Coordinator Name Role Phone Helen Weinstein Primary Care Provider Adilene Lopez MD Primary Care Provide r Encounter Details Date Type Department Care Team ([facility] st Contact Info) Description 04/16/2022 Orders Only [facility] MEDICINE [address] [place] [address] Helen Weinstein FNP Social History Tobacco Use [...] documented as of this encounter Care Teams Preparation Center Coordinator Relationship Specialty Start Date End Date Helen Weinstein FNP PCP - General Family Medicine 04/10/22 07/10/22 Adilene Berman MD 230 [place] [address] PCP - General Internal Medicine 07/11/22 documented as of this encounter
--- OUTSIDE RECORDS SUMMARY | 2024-09-09 17:19 | XMS_ITS | Encounter Summary ---
Author Organization [employer] Address [address] [facility] [address] 7t [place] [address] Care Team Providers Care Solid Plasterer Name Role Phone Adilene Berman MD Primary Care Provide r Reason for Visit * Reason Comments Med Refill Encounter Details Date Type Department Care Team (Late st Contact Info) Description 05/19/2023 Refill [facility] MED[facility]INE 230 [place], [place] [phone] Helen Weinstein FNP Diabetes mellitus without complication [...] documented as of this encounter Care Teams Solid Plasterer Relationship Specialty Start Date End Date Adilene Berman MD [address] [place] [phone] PCP - General Internal Medicine 07/11/22 documented as of this encounter
--- OUTSIDE RECORDS SUMMARY | 2024-09-09 17:19 | XMS_ITS | Encounter Summary ---
Author Organization [employer] Address [address] [facility] 7 [place] [address] Care Team Providers Care Power Generation Equipment Repairer Name Role Phone Helen Weinstein Primary Care Provider Adilene Lopez MD Primary Care Provide r Reason for Visit * Reason Comments Med Change Request Encounter Details Date Type Department Care Team (Late st Contact Info) Description 06/14/2022 Refill [facility] MEDICINE 230 [place] [address] Helen Weinstein FNP Diabetes mellitus without complication [...] documented as of this encounter Care Teams Power Generation Equipment Repairer Relationship Specialty Start Date End Date Helen Weinstein FNP PCP - General Family Medicine 04/10/22 07/10/22 Adilene Berman MD [address] [place] [phone] PCP - General Internal Medicine 07/11/22 documented as of this encounter
--- OUTSIDE RECORDS SUMMARY | 2024-09-09 17:19 | XMS_ITS | Encounter Summary ---
Author Organization [employer] Address [address] [facility] 7t [place] [address] Care Team Providers Care Tea Leaf Reader Name Role Phone Adilene Berman MD Primary Care Provide r Reason for Visit * Reason Comments Med Refill Encounter Details Date Type Department Care Team ([facility] st Contact Info) Description 04/14/2023 Refill [facility] MEDICINE 230 [place], [place] [phone] Adilene Berman MD [address] [place] [address] Benign essential hypertension; Asthma, unspecified asthma severity, unspecified whether complicated, unspecified whether persistent; Dyshidrotic eczema Social History Tobacco Use Types [...] your housing situation today? I have young mady 02/26/[address] you li [...] as of this encounter Visit Diagnoses Diagnosis Benign essential hypertension Essential hypertension, benign Asthma, unspecified asthma severity, unspecified whether complicated, unspecified whether persistent Dyshidrotic eczema documented in this encounter Additional Health Concerns Assessment Noted Time PHQ-9 Depression Total Score: 15 022 1:49 PM EST documented as of this encounter Care Teams Tea Leaf Reader Relationship Specialty Start Date End Date Adilene Berman MD [address] [place] [phone] PCP - General Internal Medicine 07/11/22 documented as of this encounter
--- OUTSIDE RECORDS SUMMARY | 2024-09-09 17:19 | XMS_ITS | Encounter Summary ---
Author Organization [employer] Address [address] [facility] 7t [place] [address] Care Team Providers Care Electric Organ Inspector And Repairer Name Role Phone Adilene Berman MD Primary Care Provide r Reason for Referral * Consultation (Routine) - Authorized Specialty Diagnoses / Procedures Referred By Letty cardoso Referred To Contact Pharmacy Diagnoses Smoker Adilene Berman MD [address] [place] [address] Phone: tel: fax: Referral ID Status Reason Start Date Expiration Date Visits Requested Visits Authorized [id number] Authorized Consult and Treat 09/09/2024 09/09/2025 6 6 * PFT (Routine) - Authorized Specialty Diagnoses / Procedures Referred By Letty cardoso Referred To Contact Diagnoses Smoker Procedures Pulmonary Function Test Adilene Berman MD [address] [place] [address] Phone: tel: fax: [address] Phone: tel: fax: Referral ID Status Reason Start Date Expiration Date V isits Requested Visits Authorized [id number] Authorized 09/09/2024 09/09/2025 1 1 Reason for Visit * Reason Comments Chronic conditions Encounter Details Date Type Department Care Team (Late st Contact Info) Description 09/09/2024 3:15 PM EDT Office Visit [facility] MEDICINE [address] [place] [address] Adilene Berman MD [address] [place] [address] Diabetes mellitus without complication (CMS/HCC); Primary hypertension; Benign essential hypertension; Mild intermittent asthma without complication; Smoker Social History Tobacco Use Types Packs/Day Years [...] AM EDT documented as of this encounter Last Filed Vital Signs Vital Sign Reading Time Taken Comments Blood Pressure 158/94 09/09/2024 2:35 PM EDT Pulse 71 09/09/2024 2:35 PM EDT Temperature 36.1 ??C (97 ??F) 09/09/2024 2:35 PM EDT Respiratory Rate - - Oxygen Saturation 98% 09/09/2024 2:35 PM EDT Inhaled Oxygen Concentration - - Weight 70.4 kg (155 lb 2 oz) 09/09/2024 2:35 PM EDT Height 157.5 cm (5' 2 ) 09/09/2024 2:35 PM EDT Body Mass Index 28.37 09/09/2024 2:35 PM EDT documented in this encounter Progress Notes * Adilene Greene MD - 09/09/2024 3:15 PM EDT SUBJECTIVE: Fatmata An is a 54 y.o. year old female who presents for Chronic Disease Management . Acute Concerns: Cough chronic: Patient reports this is a chronic problem she has cough spells more at night, she isusing albuterol as needed she tells me she never got her Asmanex Social History Social History Narrative Not on file Patient Active Problem List Diagnosis Abnormal thyroid blood test Acute low back pain Benign essential hypertension Callus of heel Carpal tunnel syndrome Chronic non-infective otitis externa Cold feet Depressive disorder Diabetes mellitus without complication (CMS/HCC) Dyshidrotic eczema Generalized anxiety disorder Illiteracy Impaired fasting glucose Microcytic anemia Overweight BMI 31.0-31.9,adult Vitamin D insufficiency Colon cancer screening Screening for lung cancer Acute bacterial conjunctivitis of left eye Rash Primary hypertension Mild intermittent asthma without complication Breast symptom Mass of upper inner quadrant of right breast Smoker No family history on file. Review of Systems Constitutional: Negative. HENT: Negative. Respiratory: Positive for cough. Negative for apnea, choking, chest tightness, shortness of breath,wheezing and stridor. Cardiovascular: Negative. OBJECTIVE: Vitals: 09/09/24 1435 BP: (!) 158/94 BP Location: Left arm Patient Position: Sitting BP Cuff Size: Adult Pulse: 71 Temp: 97 ??F (36.1 ??C) TempSrc: Oral SpO2: 98% Weight: 155 lb 2 oz (70.4 kg) Height: 5' 2 (1.575 m) Physical Exam Constitutional: Appearance: Normal appearance. Cardiovascular: Rate and Rhythm: Normal rate and regular rhythm. Pulmonary: Effort: Pulmonary effort is normal. Breath sounds: Normal breath sounds. Abdominal: General: Abdomen is flat. Palpations: Abdomen is soft. Musculoskeletal: Right lower leg: No edema. Left lower leg: No edema. Neurological: Mental Status: She is alert. Follow Up: Follow up in about 3 months (around 12/10/2024) for chronic conditions . Current Outpatient Medications on File Prior to Visit Medication Sig Dispense Refill betamethasone dipropionate 0.05 % cream APPLY TOPICALLY 1-2 TIMES EVERY DAY A THIN LAYER TO THE AFFECTED AREA(S) OF THE HANDS 30 g 1 buPROPion XL (Wellbutrin XL) 150 MG 24 hr tablet TAKE 1 TABLET (150 MG) BY MOUTH IN THE MORNING. DONOT CRUSH, CHEW, OR SPLIT. 90 tablet 1 Capsaicin in Lidocaine Vehicle 0.25 % cream Apply 1 application topically if needed in the morning,at noon, and at bedtime (for heel and foot pain). 60 g 1 cyclobenzaprine (Flexeril) 10 MG tablet Take 1 tablet (10 mg) by mouth if needed in the morning, atnoon, and at bedtime for muscle spasms. 60 tablet 0 docusate sodium (Colace) 100 MG capsule Take by mouth twice a day. docusate sodium (Colace) 100 MG capsule Take 1 capsule by mouth 2 times daily. 180 capsule 2 FLUoxetine (PROzac) 20 MG capsule Take 20 mg by mouth in the morning. fluticasone (Flovent HFA) 110 MCG/ACT inhaler INHALE 1 PUFF BY MOUTH 2 TIMES A DAY. RINSE MOUTH WITH WATER AND SPIT OUT WATER AFTER EVERY USE 36 g 1 glucose blood (FREESTYLE LITE) test strip at bed time. Ketotifen Fumarate (Alaway) 0.035 % solution Administer 1 drop into affected eye(s) 2 times daily. 5 mL 0 lidocaine (Lidoderm) 5 % patch Place 1 patch on the skin at bed time. Multiple Vitamin (Multi-Vitamin) tablet take 1 tablet by oral route every day with food omeprazole (PriLOSEC) [address] capsule Take 20 mg by mouth in the morning. polyethylene glycol, PEG, 3350 (MiraLax) 17 GM/SCOOP powder Take 1 Scoop by mouth in the morning. sertraline (Zoloft) 100 MG tablet TAKE 1 TABLET BY MOUTH EVERY DAY 30 tablet 1 TRUEplus Lancets 33G [facility] USE TO TEST BLOOD SUGAR EVERY DAY 100 each 3 [DISCONTINUED] albuterol (Ventolin HFA) 108 (90 Base) MCG/ACT inhaler Inhale 2 puffs every 6 (six) hours if needed for wheezing. INHALE 2 PUFFS EVERY 4 HOURS IF NEEDED FOR WHEEZING. 18 g 1 [DISCONTINUED] amLODIPine (Norvasc) 5 MG tablet TAKE 1 TABLET BY MOUTH EVERY DAY IN THE MORNING 90 tablet 1 [DISCONTINUED] dulaglutide (Trulicity) 1.5 MG/0.5ML solution pen-injector Inject 1.5 mg under the skin 1 (one) time per week. 4 each 11 [DISCONTINUED] Mometasone Furoate (Asmanex HFA) 100 MCG/ACT aerosol INHALE 1 PUFF BY MOUTH 2 TIMES A DAY. RINSE MOUTH WITH WATER AND SPIT OUT WATER AFTER EVERY USE 13 g 1 [DISCONTINUED] semaglutide (Ozempic) 2 MG/1.5ML solution pen-injector Inject 0.5 mg under the skin 1 (one) time per week. 1 each 12 No current facility-administered medications on file prior to visit. Problem List Items Addressed This Visit Diabetes mellitus without complication ([facility]) Under control continue with Trulicity 1.5 mg weekly Relevant Medications Dulaglutide 1.5 MG/0.5ML solution auto-injector Other Relevant Orders POCT Glucose (Completed) POCT HGB A1C (Completed) Primary hypertension Patient has not been taking her blood pressure medication, I advised to take it every day low-sodium diet and log blood pressure for next appointment Relevant Medications zoster vaccine-recombinant adjuvanted (Shingrix) 50 MCG/0.5ML vaccine Benign essential hypertension Relevant Medications amLODIPine (Norvasc) 5 MG tablet Mild intermittent asthma without complication Relevant Medications albuterol (Ventolin HFA) 108 (90 Base) MCG/ACT inhaler budesonide-formoterol (Symbicort) 160-4.5 MCG/ACT inhaler Smoker Patient is scheduled for low-dose CT for screening of lung cancer on September 15 Smoking cessation counseling done Relevant Medications nicotine polacrilex (Nicotine Mini) 4 MG lozenge Other Relevant Orders Pulmonary Function Test Referral to Pharmacy CDTM documented in this encounter Miscellaneous Notes * Assessment & Plan Note - Adilene Greene MD - 09/09/2024 3:48 PM EDT Associated Problem(s): Smoker Patient is scheduled for low-dose CT for screening of lung cancer on September 15 Smoking cessation counseling done * Assessment & Plan Note - Adilene Greene MD - 09/09/2024 3:47 PM EDT Associated Problem(s): Diabetes mellitus without complication (CMS/HCC) Under control continue with Trulicity 1.5 mg weekly * Assessment & Plan Note - Adilene Greene MD - 09/09/2024 3:47 PM EDT Associated Problem(s): Primary hypertension Patient has not been taking her blood pressure medication, I advised to take it every day low-sodium diet and log blood pressure for next appointment documented in this encounter Plan of Treatment Scheduled Orders Name Type Priority Associated Diagnoses Orde r Schedule Pulmonary Function Test PFT Routine Smoker Expected: 09/09/2024, Expires: 03/12/2025 Scheduled Referrals Name Type Priority Associated Diagnoses Orde r Schedule Referral to Pharmacy CDTM Outpatient Referral Routine Smoker Ordered: 09/09/2024 documented as of this encounter Procedures Procedure Name Priority Date/Time Associated Diagnosis Comments POCT GLYCATED HEMOGLOBIN, TOTAL Routine 09/09/2024 2:38 PM EDT Diabetes mellitus without complication (CMS/HCC) POCT GLUCOSE Routine 09/09/2024 2:36 PM EDT Diabetes mellitus without complication (CMS/HCC) documented in this encounter Results * POCT HGB A1C (09/09/2024 2:38 PM EDT) Hemoglobin A1C 5.4 4.0 - 6.0 % QC Media Lot # [id number] Lot# Expiration Date 111,727 Blood 09/09/2024 2:38 PM EDT us Adilene Greene MD POINT OF CARE TEST EN TER/EDIT ORDERABLES Final Result * POCT Glucose (09/09/2024 2:36 PM EDT) Glucose Blood, POC 123 60 - 200 mg/dL QC Media Lot # [id number] Lot# Expiration Date 101,425 Blood Capillary blood specimen / Unknown 09/09/2024 2:36 PM EDT us Adilene Greene MD POINT OF CARE TEST EN TER/EDIT ORDERABLES Final Result documented in this encounter Visit Diagnoses Diagnosis Diabetes mellitus without complication (CMS/HCC) Type II or unspecified type diabetes mellitus without mention of complication, not stated as uncontrolled Primary hypertension Unspecified essential hypertension Benign essential hypertension Essential hypertension, benign Mild intermittent asthma without complication Smoker Tobacco use disorder documented in this encounter Additional Health Concerns Assessment Noted Time PHQ-9 Depression Total Score: 0 03/11/20 24 1:33 PM EDT documented as of this encounter Care Teams Electric Organ Inspector And Repairer Relationship Specialty Start Date End Date Adilene Berman MD [address] [place] [id number] PCP - General Internal Medicine 07/11/22 documented as of this encounter
--- OUTSIDE RECORDS SUMMARY | 2024-09-09 17:19 | XMS_ITS | Encounter Summary ---
Author Organization [email or web address] Address 75 [facility] 7t [place] [address] Care Team Providers Care Learning Support Assistant Name Role Phone CorinnaHelen ZEV Primary Care Provider Adilene Lopez MD Primary Care Provide r Reason for Visit * Reason Comments Med Refill Encounter Details Date Type Department Care Team ([facility] st Contact Info) Description 05/09/2022 Refill [facility] MEDICINE [address] [place] [address] Sirisha Lew FNP [address] [place] [address] Overweight (Primary Dx); Depressive disorder Social History Tobacco Use Types Packs/Day Years [...] PM EST documented as of this encounter Miscellaneous Notes * Telephone Encounter - ZEV Bernard - 05/15/2022 9:51 AM EST Approving, but needs appt for additional refills. documented in this encounter Plan of Treatment Not on file documented as of this encounter Visit Diagnoses Diagnosis Overweight- Primary Depressive disorder Depressive disorder, not elsewhere classified documented in this encounter Additional Health Concerns Assessment Noted Time PHQ-9 Depression Total Score: 15 022 1:49 PM EST documented as of this encounter Care Teams Learning Support Assistant Relationship Specialty Start Date End Date Helen Weinstein FNP PCP - General Family Medicine 04/10/22 07/10/22 Adilene Berman MD [address] [place] [address] PCP - General Internal Medicine 07/11/22 documented as of this encounter
--- OUTSIDE RECORDS SUMMARY | 2024-09-09 17:19 | XMS_ITS | Encounter Summary ---
Author Organization [employer] Address 75 [facility] 7t [place] [address] Care Team Providers Care Fish Cleaner Machine Tender Name Role Phone Helen Weinstein RETAIL STORE CLERK Primary Care Provider Adilene Lopez MD Primary Care Provide r Encounter Details Date Type Department Care Team ([facility] st Contact Info) Description 04/12/2022 Orders Only [facility] MEDICINE [address] [place] [address] Elsie Cartagena, PharmD [address] [place] [address] Social History Tobacco Use Types Packs/Day Years [...] documented as of this encounter Care Teams Fish Cleaner Machine Tender Relationship Specialty Start Date End Date Helen Weinstein FNP PCP - General Family Medicine 04/10/22 07/10/22 Adilene Berman MD [address] [place] [address] PCP - General Internal Medicine 07/11/22 documented as of this encounter
--- OUTSIDE RECORDS SUMMARY | 2024-09-09 17:19 | XMS_ITS | Encounter Summary ---
Author Organization [employer] Address 75 [facility] 7t [place] [address] Care Team Providers Care Job Printer Apprentice Name Role Phone Helen Weinstein Primary Care Provider Adilene Lopez MD Primary Care Provide r Reason for Visit * Reason Comments Med Change Request Encounter Details Date Type Department Care Team (Late st Contact Info) Description 06/10/2022 Refill [facility] MEDICINE [address] [place] [address] Helen Weinstein FNP Diabetes mellitus without complication [...] encounter Miscellaneous Notes * Telephone Encounter - Radha Brown RN - 06/12/2022 11:33 AM EST T/C placed to [facility]. [facility] pharmacy received a shipment of Trulicuty 3mg yesterday and pt's rx is filled and awaiting bead picker. T/C to pt. Advised Trulicity awaiting bead picker. Pt states she will pick it up today. * Telephone Encounter - ZEV Suarez - 06/11/2022 12:54 PM EST Can you please inform pt trulicity is not available at [facility] until next week's shipment, shecan either wait until it arrives or I can try another pharmacy of her choice. Please obtain new pharmacy info if she wishes to do so. ty documented in this encounter Plan of Treatment [...] documented as of this encounter Care Teams Job Printer Apprentice Relationship Specialty Start Date End Date Helen Weinstein FNP PCP - General Family Medicine 04/10/22 07/10/22 Adilene Berman MD [address] [place] [address] PCP - General Internal Medicine 07/11/22 documented as of this encounter
--- OUTSIDE RECORDS SUMMARY | 2024-09-09 17:19 | XMS_ITS | Encounter Summary ---
Author Organization [employer] Address [address] [facility] 7t [place] [address] Care Team Providers Care Project Development Manager Name Role Phone Adilene Berman MD Primary Care Provide r Reason for Visit * Reason Comments Med Refill Encounter Details Date Type Department Care Team ([facility] st Contact Info) Description 06/12/2024 Refill [facility] MEDICINE [address] [place], [place] [phone] Jacki Gonzalez NP 230 [place] [address] Mild intermittent asthma without complication Social History Tobacco Use Types Packs/Day Years [...] as of this encounter Visit Diagnoses Diagnosis Mild intermittent asthma without complication documented in this encounter Additional Health Concerns Assessment Noted Time PHQ-9 Depression Total Score: 0 03/11/20 24 1:33 PM EDT documented as of this encounter Care Teams Project Development Manager Relationship Specialty Start Date End Date Adilene Berman MD [address] [place] [address] PCP - General Internal Medicine 07/11/22 documented as of this encounter
--- OUTSIDE RECORDS SUMMARY | 2024-09-09 17:19 | XMS_ITS | Encounter Summary ---
Author Organization [employer] Address [address] [facility] [address] 7t [place] [address] Care Team Providers Care Meat Cutting Block Repairer Name Role Phone Adilene Berman MD Primary Care Provide r Encounter Details Date Type Department Care Team (Latest Contact Info) Description 09/09/2024 Travel Social History Tobacco Use Types Packs/Day Years [...] documented as of this encounter Care Teams Meat Cutting Block Repairer Relationship Specialty Start Date End Date Adilene Berman MD [address] [place] [phone] PCP - General Internal Medicine 07/11/22 documented as of this encounter
--- OUTSIDE RECORDS SUMMARY | 2024-09-09 17:19 | XMS_ITS | Encounter Summary ---
Author Organization [employer] Address [address] [facility] [address] 7t [place] [address] Care Team Providers Care Sales Data Analyst Name Role Phone Adilene Berman MD Primary Care Provide r Encounter Details Date Type Department Care Team (Latest Contact Info) Description 09/07/2024 Travel Social History Tobacco Use Types Packs/Day [...] documented as of this encounter Care Teams Sales Data Analyst Relationship Specialty Start Date End Date Adilene Berman MD [address] [place] [address] PCP - General Internal Medicine 07/11/22 documented as of this encounter
[2024-09-09 17:41] LABS: Creatinine Urine 128.88 mg/dL; Microalbum/Creatinine Ratio Ur 8.5 ug/mg cr (<30)
== END 2024-09-09 15:43 | disposition home or self-care (01) ==
LOC: HO.HHCL 15:42
PROVIDERS: Visit Provider Internal Medicine
DX: E11.9 Type 2 diabetes mellitus without complications (principal)
CPT/HCPCS: 36415; 80053; 80061; 82043; 82570

== ENCOUNTER 2024-09-15 12:50 | Outpatient (REF) | payer MEDICAID, SELFPAY ==
--- NOTE | ~2024-09-15 | CT_ITS ---
EXAMINATION: CT LOW-DOSE SCREENING CHEST WITHOUT CONTRAST CLINICAL INFORMATION: Lung cancer screening; current smoker, 39 pack years, 54-year-old female. 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 COMPARISON: 07/04/2023 low-dose screening CT. TECHNIQUE: Multidetector volumetric CT imaging of the chest is performed on a Siemens SOMATOM Definition scanner without contrast using low dose technique. Additional 2D coronal and sagittal reformatted images and axial 3D maximum intensity projection (MIP) images are generated on the CT workstation. This CT examination was performed using dose optimization techniques as appropriate, variously including the following: *Automated exposure control *Adjustment of mA and/or kV according to patient size (this includes techniques or standardized protocols for targeted exams where dose is matched to indication/reason for exam; i.e. extremities or head) *Use of iterative reconstruction technique FINDINGS: PULMONARY NODULES: 3 mm nodule right lateral apex (series 5, image 15), stable. No new or enlarging pulmonary nodules are evident. LUNGS: Mild paraseptal emphysema with upper lobe predominance. No consolidations, or abnormal opacities. Lungs otherwise clear. Small airways appear normal. No significant bronchiectasis. No pleural effusion or pneumothorax. MEDIASTINUM: Partially imaged thyroid is normal. There is no lymphadenopathy or mass. The aorta is mildly calcified but normal in caliber and course. There is no aneurysm. Main pulmonary artery is normal in size. Heart size is normal. There is no pericardial effusion. There is no esophageal abnormality. Central airways are patent. CORONARY ARTERY CALCIFICATION: None visualized on this study. CHEST WALL/AXILLA: Postoperative changes in the superior medial right breast with focal region of unchanged fat necrosis (series 3, image 11). Surgical clips in the right axilla. No abnormal lymphadenopathy or mass lesion. UPPER ABDOMEN: Limited imaging of the imaged upper abdominal contents demonstrate no abnormalities. OSSEOUS STRUCTURES: No suspicious focal findings. CT/CT lung screening IMPRESSION: 1. Stable 3 mm nodule right lateral apex. No new or enlarging pulmonary nodules. 2. Mild paraseptal emphysema with upper lobe predominance. 3. Stable focus of postoperative fat necrosis in the superomedial right breast. ASSESSMENT: 1. Lung-RADS Category 2: Benign appearance or behavior of nodules. 2. Lung-RADS Category S: None. RECOMMENDATION: Continued routine annual low-dose CT lung screening in 1 year is recommended. An order for CT CHEST LOW DOSE CANCER SCREENING ([id number]) can be placed. Electronically signed by: Norris Em MD 09/15/2024 01:36 PM EDT
--- OUTSIDE RECORDS SUMMARY | 2024-09-15 13:54 | XMS_ITS | Encounter Summary ---
Author Organization [employer] Address 75 [facility] 7 [place] [address] Care Team Providers Care Organic Chemistry Teacher Name Role Phone Helen Weinstein Primary Care Provider Adilene Lopez MD Primary Care Provide r Encounter Details Date Type Department Care Team ([facility] st Contact Info) Description 04/16/2022 Orders Only [facility] MEDICINE [address] [place] [address] Helen Weinstein FNP Social History Tobacco Use [...] documented as of this encounter Care Teams Organic Chemistry Teacher Relationship Specialty Start Date End Date Helen Weinstein FNP PCP - General Family Medicine 04/10/22 07/10/22 Adilene Berman MD [address] [place] [address] PCP - General Internal Medicine 07/11/22 documented as of this encounter
--- OUTSIDE RECORDS SUMMARY | 2024-09-15 13:54 | XMS_ITS | Encounter Summary ---
Author Organization [employer] Address 75 [facility] 7 [place] [address] Care Team Providers Care Drapery Worker Name Role Phone Adilene Berman MD Primary Care Provide r Reason for Visit * Reason Onset Date Comments Call Back Request 07/05/2024 Encounter Details Date Type Department Care Team ([facility] st Contact Info) Description 07/05/2024 Telephone [facility] MEDICINE 230 [place] [address] Adilene Berman MD [address] [place] [address] Call Back Request Social History Tobacco Use [...] Tc from pt requesting to speak to manager business as she requested status of referral for location to get [place] [facility] [place] [facility] Cob Sawyer advised location to be change takes 7-14 business days as same thing requesting new referral for anything else. Pt requested manager business to contact her back as pt states is ridiculous how long it takes. [phone] documented in this encounter Plan of Treatment Not on file documented as of this encounter Visit Diagnoses Not on filedocumented in this encounter Additional Health Concerns Assessment Noted Time PHQ-9 Depression Total Score: 0 03/11/20 1:33 PM EDT documented as of this encounter Care Teams Drapery Worker Relationship Specialty Start Date End Date Adilene Berman MD [address] [place] [address] PCP - General Internal Medicine 07/11/22 documented as of this encounter
--- OUTSIDE RECORDS SUMMARY | 2024-09-15 13:54 | XMS_ITS | Encounter Summary ---
Author Organization [employer] Address 75 [facility] 7 [place] [address] Care Team Providers Care Veneer Drier Tailer Name Role Phone Adilene Berman MD Primary Care Provide r Reason for Visit * Reason Onset Date Comments DECEMBER RECALL 09/13/2024 Encounter Details Date Type Department Care Team ([facility] st Contact Info) Description 09/13/2024 Telephone [facility] MEDICINE 230 [place] [address] Adilene Berman MD [address] [place] [address] DECEMBER RECALL Social History Tobacco Use Types Packs/Day Years [...] encounter Miscellaneous Notes * Telephone Encounter - Ronald Vizcaino [place] - 09/13/2024 1:55 PM EDT TC- Patient to schedule an appt (December) with [facility] to call back to sche appt.Mailed recall letter. documented in this encounter Plan of Treatment Not on file documented as of this encounter Visit Diagnoses Not on filedocumented in this encounter Additional Health Concerns Assessment Noted Time PHQ-9 Depression Total Score: 0 03/11/20 24 1:33 PM EDT documented as of this encounter Care Teams Veneer Drier Tailer Relationship Specialty Start Date End Date Adilene Berman MD [address] [place] [address] PCP - General Internal Medicine 07/11/22 documented as of this encounter
--- OUTSIDE RECORDS SUMMARY | 2024-09-15 13:54 | XMS_ITS | Encounter Summary ---
Author Organization [employer] Address 75 [facility] 7 [place] [address] Care Team Providers Care Chairman & Co Founder Name Role Phone Adilene Berman MD Primary Care Provide r Reason for Visit * Reason Onset Date Comments Referral 06/30/2024 Encounter Details Date Type Department Care Team ([facility] st Contact Info) Description 06/30/2024 Telephone [facility] MEDICINE [address] [place] [address] Adilene Berman MD [address] [place] [address] Referral Social History Tobacco Use Types Packs/Day [...] Ruth Miller - 07/05/2024 12:23 PM EST Unified Communications Engineer spoke with patient. Patient prefers care at [facility] and has history of Mammo's being performedthere. Per patient they also would be available to see her sooner than [facility]. Order was changed and e-faxed to [facility] for review and appointment as of today. Will follow up and check on status of order. Patient to contact us if she has not heard anything by the end of the week. Patient is aware. * Telephone Encounter - Essence Mendez - 07/05/2024 10:23 AM EST Tc from pt requesting status of referral location as she requested to get change [place] [facility] [place] [facility] [place] [facility] [place]. * Telephone Encounter - Cristian Weber - 06/30/2024 12:11 PM EST Tc from pt requesting to change location from referral for radiology on 06/29/24 from [facility] [place] [facility]. Contact pt at [phone] documented in this encounter Plan of Treatment Not on file documented as of this encounter Visit Diagnoses Not on filedocumented in this encounter Additional Health Concerns Assessment Noted Time PHQ-9 Depression Total Score: 0 03/11/20 24 1:33 PM EDT documented as of this encounter Care Teams Chairman & Co Founder Relationship Specialty Start Date End Date Adilene Berman MD [address] [place] [address] PCP - General Internal Medicine 07/11/22 documented as of this encounter
--- OUTSIDE RECORDS SUMMARY | 2024-09-15 13:54 | XMS_ITS | Encounter Summary ---
Author Organization [employer] Address 75 [facility] 7t [place] [address] Care Team Providers Care Carriage Dogger Name Role Phone Adilene Berman MD Primary Care Provide r Reason for Visit * Reason Comments Med Refill Encounter Details Date Type Department Care Team ([facility] st Contact Info) Description 06/12/2024 Refill [facility] MEDICINE [address] [place], [place] [phone] Adilene Berman MD [address] [place], [place] [phone] Rash Social History Tobacco Use Types Packs/Day [...] documented as of this encounter Care Teams Carriage Dogger Relationship Specialty Start Date End Date Adilene Berman MD [address] [place] [address] PCP - General Internal Medicine 07/11/22 documented as of this encounter
--- OUTSIDE RECORDS SUMMARY | 2024-09-15 13:54 | XMS_ITS | Encounter Summary ---
Author Organization [employer] Address 75 [facility] 7t [place] [address] Care Team Providers Care Mathematics Lecturer Name Role Phone Adilene Berman MD Primary Care Provide r Reason for Visit * Reason Comments Med Refill Encounter Details Date Type Department Care Team ([facility] st Contact Info) Description 06/12/2024 Refill [facility] MEDICINE [address] [place] [address] Jacki Gonzalez NP [address] [place] [address] Mild intermittent asthma without complication Social History [...] documented as of this encounter Care Teams Mathematics Lecturer Relationship Specialty Start Date End Date Adilene Berman MD [address] [place] [address] PCP - General Internal Medicine 07/11/22 documented as of this encounter
--- OUTSIDE RECORDS SUMMARY | 2024-09-15 13:54 | XMS_ITS | Encounter Summary ---
Author Organization [employer] Address 75 [facility] 7 [place] [address] Care Team Providers Care Construction Technician Name Role Phone Helen Weinstein Primary Care Provider Adilene Lopez MD Primary Care Provide r Encounter Details Date Type Department Care Team (Late st Contact Info) Description 06/11/2022 Orders Only [facility] MEDICINE [address] [place] [address] Helen Weinstein FNP Social History Tobacco Use [...] documented as of this encounter Care Teams Construction Technician Relationship Specialty Start Date End Date Helen Weinstein FNP PCP - General Family Medicine 04/10/22 07/10/22 Adilene Berman MD [address] [place] [address] PCP - General Internal Medicine 07/11/22 documented as of this encounter
--- OUTSIDE RECORDS SUMMARY | 2024-09-15 13:54 | XMS_ITS | Clinical Summary ---
Author Organization [facility] Address [address] [place] [phone] Phone Care Team Providers Care Permit Technician Name Role Phone Adilene Berman MD Primary Care Provide r Encounters Date Type Department Care Team Description 07/09/2024 8:20 AM EST - 07/09/2024 11:59 PM EST Hospital Encounter [facility] Ultrasound [address] [place] [phone] Unspecified lump in the right breast, upper inner quadrant Discharge Disposition: Home or Self Care 07/09/2024 7:46 AM EST - 07/09/2024 11:59 PM EST Hospital Encounter [facility] at [address] [phone] Other signs and symptoms in breast; Mass [...] RIGHT Mammography location: [facility] at [address], [address] -------- FINAL REPORT -------- Dictated By: Dalton Hull Dictated Date: 07/09/2024 09:01 ET Assigned Physician: Dalton Hull Reviewed and Electronically Signed By: Dalton Hull Signed Date: 07/09/2024 09:08 ET Workstation ID: [id number] Transcribed By: Self Edit Transcribed Date: 07/09/2024 [...] of lumpectomy for right breast cancer. Patient [id number] pound weight loss. COMPARISON: 06/17/2023, 06/10/2022, 06/08/2021, 06/06/2020, 04/27/2015 TECHNIQUE: Synthesized CC and MLO projections of each breast.Tomosynthesis of each breast in the CC and MLO projections. ADDITIONAL IMAGING: None High-frequency linear transducer ultrasound of the right breast targetedto the area of clinical concern. Computer-aided detection was employed with the [employer]anri AI 3-D. TISSUE DENSITY: There are scattered [...] 1: Clinical correlation recommended RIGHT Mammography location: [facility] at [address], [address] -------- FINAL REPORT -------- Dictated By: Dalton Hull Dictated Date: 07/09/2024 09:01 ET Assigned Physician: Dalton Hull Reviewed and Electronically Signed By: Dalton Hull Signed Date: 07/09/2024 09:08 ET Workstation ID: [id number] Transcribed By: Self Edit Transcribed Date: 07/09/2024 09:04 ET us Elidia Faria LABORER DRYING DEPARTMENT IMG BI PROCEDURES Final Result * US [...] 1: Clinical correlation recommended RIGHT Mammography location: [facility] at [address], [address] -------- FINAL REPORT -------- Dictated By: Dalton Hull Dictated Date: 07/09/2024 09:01 ET Assigned Physician: Dalton Hull Reviewed and Electronically Signed By: Dalton Hull Signed Date: 07/09/2024 09:08 ET Workstation ID: [id number] Transcribed By: Self Edit Transcribed Date: 07/09/2024 [...] of lumpectomy for right breast cancer. Patient [id number] pound weight loss. COMPARISON: 06/17/2023, 06/10/2022, 06/08/2021, 06/06/2020, 04/27/2015 TECHNIQUE: Synthesized CC and MLO projections of each breast.Tomosynthesis of each breast in the CC and MLO projections. ADDITIONAL IMAGING: None High-frequency linear transducer ultrasound of the right breast targetedto the area of clinical concern. Computer-aided detection was employed with the [employer] Nutmeg AI 3-D. TISSUE DENSITY: There are scattered [...] RIGHT Mammography location: [facility] at [address], [address] -------- FINAL REPORT -------- Dictated By: Dalton Hull Dictated Date: 07/09/2024 09:01 ET Assigned Physician: Dalton Hull Reviewed and Electronically Signed By: Dalton Hull Signed Date: 07/09/2024 09:08 ET Workstation ID: [id number] Transcribed By: Self Edit Transcribed Date: 07/09/2024 09:04 ET us Elidia Faria LABORER DRYING DEPARTMENT IMG US PROCEDURES Final Result from Last 3 Months Insurance MEDICAID - [place] Care Teams Permit Technician Relationship Specialty Start Date End Date Adilene Berman MD [address] [place] [phone] PCP - General Internal Medicine 05/24/24
--- OUTSIDE RECORDS SUMMARY | 2024-09-15 13:54 | XMS_ITS | Encounter Summary ---
Author Organization [employer] Address [address] [facility] 7 [place] [address] Care Team Providers Care Commissary Steward Name Role Phone Helen Weinstein Primary Care Provider Adilene Lopez MD Primary Care Provide r Encounter Details Date Type Department Care Team ([facility] st Contact Info) Description 04/16/2022 Orders Only [facility] MEDICINE [address] [place] [address] Helen Weinstein FNP Social History Tobacco Use [...] documented as of this encounter Care Teams Commissary Steward Relationship Specialty Start Date End Date Helen Weinstein FNP PCP - General Family Medicine 04/10/22 07/10/22 Adilene Berman MD [address] [place] [address] PCP - General Internal Medicine 07/11/22 documented as of this encounter
--- OUTSIDE RECORDS SUMMARY | 2024-09-15 13:54 | XMS_ITS | Encounter Summary ---
Author Organization [employer] Address 75 [facility] 7t [place] [address] Care Team Providers Care Air Pollution Analyst Name Role Phone Adilene Berman MD Primary Care Provide r Reason for Visit * Reason Comments Med Refill Encounter Details Date Type Department Care Team ([facility] st Contact Info) Description 05/19/[address] [facility] MEDICINE [address] [place], [place] [phone] Adilene Berman MD [address] [place], [place] [phone] Dyshidrotic eczema Social History Tobacco Use Types [...] documented as of this encounter Care Teams Air Pollution Analyst Relationship Specialty Start Date End Date Adilene Berman MD [address] [place] [address] PCP - General Internal Medicine 07/11/22 documented as of this encounter
--- OUTSIDE RECORDS SUMMARY | 2024-09-15 13:54 | XMS_ITS | Encounter Summary ---
Author Organization [employer] Address 75 [facility] 7 [place] [address] Care Team Providers Care Emergency Preparedness Coordinator Name Role Phone Helen Weinstein Primary Care Provider Adilene Lopez MD Primary Care Provide r Reason for Visit * Reason Comments Med Change Request Encounter Details Date Type Department Care Team (Late st Contact Info) Description 06/14/2022 Refill [facility] MEDICINE [address] [place] [address] Helen Weinstein FNP Diabetes mellitus without complication [...] documented as of this encounter Care Teams Emergency Preparedness Coordinator Relationship Specialty Start Date End Date Helen Weinstein FNP PCP - General Family Medicine 04/10/22 07/10/22 Adilene Berman MD [address] [place] [phone] PCP - General Internal Medicine 07/11/22 documented as of this encounter
--- OUTSIDE RECORDS SUMMARY | 2024-09-15 13:54 | XMS_ITS | Encounter Summary ---
Author Organization [employer] Address [address] [facility] 7[address] [place] [address] Care Team Providers Care Boilermaker Loftsman Name Role Phone Adilene Berman MD Primary Care Provide r Encounter Details Date Type Department Care Team (Late st Contact Info) Description 09/15/2024 Orders Only [facility] External Provider, [facility] Social History Tobacco Use Types Packs/Day Years [...] on file documented as of this encounter Procedures Procedure Name Priority Date/Time Associated Diagnosis Comments LDCT LUNG SCREENING Routine 09/15/2024 1 :17 PM EDT documented in this encounter Results * CT Lung Screening Low dose (09/15/2024 1:17 PM EDT) Anatomical Region Laterality Modality Lung Computed Tomogra phy 09/15/2024 1:17 PM EDT Narrative 09/15/2024 1:39 PM EDT ? [facility] ?[address] ?[place] [address] ? CT Scan Report ? Signed ? Patient: Den Anelle ?MR#: [id number] ?? [id number] ? : 1970 ?Acct:[id number] ? Age/Sex: 54 / F ?ADM Date: 09/15/24 ? Loc: HO.CT ? Attending Dr: Torri Gale PA-C ? Ordering Physician: Torri Gale PA-C ?? Date of Service: 09/15/24 ?? Procedure(s): CT lung screening ?? Accession Number(s): [id number] ? cc: Adilene Berman MD; Torri Gale PA-C ? Report Number: ?? [id number]: Total DLP = ?? 65.00 mGy-cm ?? EXAMINATION: ?? CT LOW-DOSE SCREENING CHEST WITHOUT CONTRAST ? CLINICAL INFORMATION: ?? Lung cancer screening; current smoker, 39 pack years, 54-year-old ?? female. ?? 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 ? COMPARISON: ?? 07/04/2023 low-dose screening CT. ? TECHNIQUE: ?? Multidetector volumetric CT imaging of the chest is performed on a ?? Siemens SOMATOM Definition scanner without contrast using low dose ?? technique. Additional 2D coronal and sagittal reformatted images and ?? axial 3D maximum intensity projection (MIP) images are generated on the ?? CT workstation. ? This CT examination was performed using dose optimization techniques as ?? appropriate, variously including the following: ?? *Automated exposure control ?? *Adjustment of mA and/or kV according to patient size (this includes ?? techniques or standardized protocols for targeted exams where dose is ?? matched to indication/reason for exam; i.e. extremities or head) ?? *Use of iterative reconstruction technique ? FINDINGS: ? PULMONARY NODULES: ?? 3 mm nodule right lateral apex (series 5, image 15), stable. ?? No new or enlarging pulmonary nodules are evident. ? LUNGS: ?? Mild paraseptal emphysema with upper lobe predominance. ?? No consolidations, or abnormal opacities. Lungs otherwise clear. ?? Small airways appear normal. No significant bronchiectasis. ?? No pleural effusion or pneumothorax. ? MEDIASTINUM: ?? Partially imaged thyroid is normal. ?? There is no lymphadenopathy or mass. ?? The aorta is mildly calcified but normal in caliber and course. There ?? is no aneurysm. ?? Main pulmonary artery is normal in size. ?? Heart size is normal. There is no pericardial effusion. ?? There is no esophageal abnormality. ?? Central airways are patent. ? CORONARY ARTERY CALCIFICATION: None visualized on this study. ? CHEST WALL/AXILLA: ?? Postoperative changes in the superior medial right breast with focal ?? region of unchanged fat necrosis (series 3, image 11). ?? Surgical clips in the right axilla. ?? No abnormal lymphadenopathy or mass lesion. ? UPPER ABDOMEN: ?? Limited imaging of the imaged upper abdominal contents demonstrate no ?? abnormalities. ? OSSEOUS STRUCTURES: No suspicious focal findings. ? CT/CT lung screening ?? IMPRESSION: ?? 1. Stable 3 mm nodule right lateral apex. No new or enlarging pulmonary ?? nodules. ?? 2. Mild paraseptal emphysema with upper lobe predominance. ?? 3. Stable focus of postoperative fat necrosis in the superomedial right ?? breast. ? ASSESSMENT: ?? 1. Lung-RADS Category 2: Benign appearance or behavior of nodules. ? 2. Lung-RADS Category S: None. ? RECOMMENDATION: ?? Continued routine annual low-dose CT lung screening in 1 year is ?? recommended. An order for CT CHEST LOW DOSE CANCER SCREENING ([id number]) ?? can be placed. ? Electronically signed by: ??Norris Em MD ??09/15/2024 01:36 PM EDT RP ? Dictated By: ?Norris Em MD ? Signed By: ?<Electronically signed by Norris Em MD in OV> ?09/15/24 1336 ? DD/ 16 ? TD/TT: 09/15/241316 ? Qc Lab Technician: ? Procedure Note Luna, Gene - 09/15/[address] [place] [id number] [address] Scan Report Signed Patient: Santana An#: [id number] : 1970Acct:[id number] Age/Sex: 54 / FADM Date: 09/15/24 Loc: HO.CT Attending Dr: Torri Gale PA-C Ordering Physician: Torri Gale PA-C Date of Service: 09/15/24 Procedure(s): CT lung screening Accession Number(s): [id number] cc: Adilene Berman MD; Torri Gale PA-C Report Number: [id number]: Total DLP = 65.00 mGy-cm EXAMINATION: CT LOW-DOSE SCREENING CHEST WITHOUT CONTRAST CLINICAL INFORMATION: Lung cancer screening; current smoker, 39 pack years, 54-year-old female. 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 COMPARISON: 07/04/2023 low-dose screening CT. TECHNIQUE: Multidetector volumetric CT imaging of the chest is performed on a Siemens SOMATOM Definition scanner without contrast using low dose technique. Additional 2D coronal and sagittal reformatted images and axial 3D maximum intensity projection (MIP) images are generated on the CT workstation. This CT examination was performed using dose optimization techniques as appropriate, variously including the following: *Automated exposure control *Adjustment of mA and/or kV according to patient size (this includes techniques or standardized protocols for targeted exams where dose is matched to indication/reason for exam; i.e. extremities or head) *Use of iterative reconstruction technique FINDINGS: PULMONARY NODULES: 3 mm nodule right lateral apex (series 5, image 15), stable. No new or enlarging pulmonary nodules are evident. LUNGS: Mild paraseptal emphysema with upper lobe predominance. No consolidations, or abnormal opacities. Lungs otherwise clear. Small airways appear normal. No significant bronchiectasis. No pleural effusion or pneumothorax. MEDIASTINUM: Partially imaged thyroid is normal. There is no lymphadenopathy or mass. The aorta is mildly calcified but normal in caliber and course. There is no aneurysm. Main pulmonary artery is normal in size. Heart size is normal. There is no pericardial effusion. There is no esophageal abnormality. Central airways are patent. CORONARY ARTERY CALCIFICATION: None visualized on this study. CHEST WALL/AXILLA: Postoperative changes in the superior medial right breast with focal region of unchanged fat necrosis (series 3, image 11). Surgical clips in the right axilla. No abnormal lymphadenopathy or mass lesion. UPPER ABDOMEN: Limited imaging of the imaged upper abdominal contents demonstrate no abnormalities. OSSEOUS STRUCTURES: No suspicious focal findings. CT/CT lung screening IMPRESSION: 1. Stable 3 mm nodule right lateral apex. No new or enlarging pulmonary nodules. 2. Mild paraseptal emphysema with upper lobe predominance. 3. Stable focus of postoperative fat necrosis in the superomedial right breast. ASSESSMENT: 1. Lung-RADS Category 2: Benign appearance or behavior of nodules. 2. Lung-RADS Category S: None. RECOMMENDATION: Continued routine annual low-dose CT lung screening in 1 year is recommended. An order for CT CHEST LOW DOSE CANCER SCREENING ([id number]) can be placed. Electronically signed by: Norris Em MD 09/15/2024 01:36 PM EDT Dictated By: Norris Em MD Signed By: <Electronically signed by Norris Em MD in OV> 09/15/24 1336 DD/ 1317 TD/TT: 09/15/24 1317 Qc Lab Technician: [facility] External Provider IMG CT PROCEDURES Final Result documented in this encounter Visit Diagnoses Not on filedocumented in this encounter Additional Health Concerns Assessment Noted Time PHQ-9 Depression Total Score: 0 03/11/20 24 1:33 PM EDT documented as of this encounter Care Teams Boilermaker Loftsman Relationship Specialty Start Date End Date Adilene Berman MD [address] [place] [id number] PCP - General Internal Medicine 07/11/22 documented as of this encounter
--- OUTSIDE RECORDS SUMMARY | 2024-09-15 13:54 | XMS_ITS | Encounter Summary ---
Author Organization [employer] Address [address] [facility] 7t [place] [address] Care Team Providers Care Optical Dispenser Name Role Phone Adilene Berman MD Primary Care Provide r Reason for Visit * Reason Comments Med Refill Encounter Details Date Type Department Care Team (Late st Contact Info) Description 05/19/2023 Refill [facility] MEDICINE [address] [place], [place] [phone] Helen Weinstein, ZEV Diabetes mellitus without complication (CMS/HCC) Social History [...] Visit Diagnoses Diagnosis Diabetes mellitus without complication (CMS/[facility]) Type II or unspecified type diabetes mellitus without mention of complication, not stated as uncontrolled documented in this encounter Additional Health Concerns Assessment Noted Time PHQ-9 Depression Total Score: 15 022 1:49 PM EST documented as of this encounter Care Teams Optical Dispenser Relationship Specialty Start Date End Date Adilene Berman MD [address] [place] [id number] PCP - General Internal Medicine 07/11/22 documented as of this encounter
--- OUTSIDE RECORDS SUMMARY | 2024-09-15 13:54 | XMS_ITS | Encounter Summary ---
Author Organization [employer] Address [address] [facility] 7 [place] [address] Care Team Providers Care Squeegee Finisher Name Role Phone Adilene Berman MD Primary Care Provide r Reason for Visit * Reason Onset Date Comments Med Refill 05/13/2023 Encounter Details Date Type Department Care Team ([facility] st Contact Info) Description 05/13/2023 Telephone [facility] MEDICINE [address] [place] [phone] Adilene Berman MD [address] [place], [place] [phone] Med Refill Social History Tobacco Use Types [...] MG/0.5ML solution pen-injector To be sent to: [facility]/pharmacy #[id number] [place], [place] - [address] [place] [address] documented in this encounter Plan of Treatment Not on file documented as of this encounter Visit Diagnoses Not on filedocumented in this encounter Additional Health Concerns Assessment Noted Time PHQ-9 Depression Total Score: 15 022 1:49 PM EST documented as of this encounter Care Teams Squeegee Finisher Relationship Specialty Start Date End Date Adilene Berman MD [address] [place] [address] PCP - General Internal Medicine 07/11/22 documented as of this encounter
--- OUTSIDE RECORDS SUMMARY | 2024-09-15 13:54 | XMS_ITS | Encounter Summary ---
Author Organization [employer] Address [address] [facility] 7 [place] [address] Care Team Providers Care Etcher Apprentice Name Role Phone Helen Weinstein [employer] Primary Care Provider Adilene Lopez MD Primary Care Provide r Encounter Details Date Type Department Care Team (Late st Contact Info) Description 04/12/2022 Orders Only [facility] MEDICINE [address] [place] [address] Elsie Cartagena, PharmD [address] [place] [address] Social History Tobacco Use Types Packs/Day Years [...] documented as of this encounter Care Teams Etcher Apprentice Relationship Specialty Start Date End Date Helen Weinstein FNP PCP - General Family Medicine 04/10/22 07/10/22 Adilene Berman MD [address] [place] [address] PCP - General Internal Medicine 07/11/22 documented as of this encounter
--- OUTSIDE RECORDS SUMMARY | 2024-09-15 13:54 | XMS_ITS | Encounter Summary ---
Author Organization [email or web address] Address [address] [facility] 7t [place] [address] Care Team Providers Care Standards Analyst Name Role Phone Adilene Berman MD Primary Care Provide r Reason for Visit * Reason Comments Med Refill Encounter Details Date Type Department Care Team ([facility] st Contact Info) Description 11/05/2023 Refill [facility] MEDICINE [address] [place], [place] [phone] Adilene Berman MD [address] [place], [place] [phone] Diabetes mellitus without complication ([facility]/HCC) Social History Tobacco Use Types Packs/Day Years [...] documented as of this encounter Care Teams Standards Analyst Relationship Specialty Start Date End Date Adilene Berman MD [address] [place] [phone] PCP - General Internal Medicine 07/11/22 documented as of this encounter
--- OUTSIDE RECORDS SUMMARY | 2024-09-15 13:54 | XMS_ITS | Clinical Summary ---
Author Organization [employer] Address [address] [facility] 7t [place] [address] Care Team Providers Care Team Driver Name Role Phone Adilene Berman MD Primary [...] mouth in the morning. 07/09/19 24 Active amLODIPine (Norvasc) 5 MG tabletIndicatio ns:Benign [...] eorder (will not trigger notification to Pharmacy)) zoster vaccine-recombi nant adjuvanted (Shingrix) 50 MCG/0.5ML vaccineIndicati ons:Primary hypertension Inject 0.5 mL (50 mcg) into the muscle 1 (one) time for 1 dose. 0.5 mL 09/10/19 25 2024 Active Problems Problem Noted Date Diagnosed Date [...] PM EST): Referral will be fax to [facility] Vitamin D insufficiency 04/19/2022 Overweight 04/18/2022 BMI [...] Encounters Date Type Department Care Team Description 09/15/2024 Orders Only [facility] External Provider, [facility] 09/13/2024 Telephone [facility] MEDICINE [address] [place] [address] Adilene Berman MD AUGUST 09/09/2024 3:15 PM EDT Office Visit [facility] [address] [place] [address] Adilene Berman MD Diabetes mellitus without complication (CMS/HCC); Primary hypertension; Benign essential hypertension; Mild intermittent asthma without complication; Smoker 09/09/2024 Travel 09/07/2024 1:30 PM EDT Office Visit [facility] OPTOMETRY [address] [place] [address] YuanLina morillo, OD Diabetes type 2, 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) (Primary Dx); Dry eye syndrome of both eyes; Presbyopia 09/07/2024 Telephone [facility] MEDICINE [address] [place] [address] Adilene Berman MD Chart prep 09/07/2024 Travel 09/02/2024 Patient Outreach [facility] [address] [place] [phone] Adilene Berman MD Pre-visit Planning (SDOH screening negative and Tobacco screening positive) 08/04/2024 Refill [facility] [address] [place] [address] Jacki Gonzalez NP Mild intermittent asthma without complication 08/04/2024 Refill [facility] [address] [place] [address] Adilene Berman MD Rash; Mild intermittent asthma without complication 07/23/2024 Population Health Risk Score [facility] Department [address] [place] [address] [phone] Provider, Population Health Generic 07/06/2024 Telephone [facility] [address] [place] [address] Elidia Faria, JUANJO US BREAST ORDER 07/05/2024 Telephone [facility] [address] [place] [address] [phone] Adilene Berman MD Request For Order(s) 07/05/2024 Telephone [facility] [address] [place] [address] [phone] Adilene Berman MD Call Back Request 06/30/2024 Telephone [facility] [address] [place] [address] [phone] Adilene Berman MD Referral 06/29/2024 3:00 PM EST Office Visit [facility] [address] [place] [address] [phone] Elidia Faria NP Breast symptom (Primary Dx); Mass of upper inner quadrant of right breast 06/29/2024 Telephone [facility] [address] [place] [address] [phone] Adilene Berman MD Nurse Triage from Last 3 Months Immunizations Name Administration Dates Next Due Influenza injectable quadriv alent preservative free 04/12/2022,06/04/2019,07/28/2018 Influenza, IIV3, injectable 04/02/2011 Influenza, Split (incl. radha fied surface antigen) 01/14/2013,01/09/2012 TD (adult), 2 Lf tetanus tox oid, preservative free, adsorbed 06/16/1998 Tdap 01/14/2013 Zoster, Recombinant 09/09/2024 Social History Tobacco Use Types Packs/Day Years [...] your housing situation today? I have young sing 03/04/[address] you li [...] Pap Smear 07/20/1992 Lung Cancer Screening 07/20/2021 09/15/2024 DTaP/Tdap/Td Vaccines (2 - Td or Tdap) 01/14/2023 01/14/2013, 06/16/1998 COVID-19 Vaccine (1 - season) 2024 Influenza Vaccine (#1) 2024 , 06/04/2019, 07/28/2018, Additional history exists Diabetes: Foot Exam 11/04/2024 11/05/2023, 11/05/2023, 11/05/2023, Additional history exists Zoster Vaccines (2 of 2) 11/04/2024 09/09/2024 Depression Screening 03/11/2025 03/11/2024, 03/11/20 Diabetes: Hemoglobin A1C 03/12/2025 025, 03/11/2024, 11/05/2023, Additional history exists Mammogram 07/09/2025 07/09/2024, 06/13, 07/09/2024 SDOH Screening 09/02/2025 09/02/2024 Diabetes: Urine Protein Screening 09/09/2025 09/09/2024, 05/02/2023 Lipid Panel 09/09/2025 09/09/2024, 04/12, 04/15/2022, Additional history exists Tobacco Screening 09/09/2025 09/09/2024 Cervical Cancer Screening 10/11/2025 HPV/Cotest 10/11/2025 10/11/2020, 0606/2020, 04/02/2017 Colorectal Cancer Screening 06/16/2026 FIT DNA/Cologuard [...] SCREENING Routine 09/15/2024 1 :17 PM EDT LIPID PANEL, STANDARD Routine 09/09/2024 3:43 PM EDT Diabetes mellitus without complication (CMS/HCC) COMPREHENSIVE METABOLIC PANEL Routine 09/09/2024 3:43 PM EDT Diabetes mellitus without complication (CMS/HCC) ALBUMIN, RANDOM URINE W/CREATININE Routine 09/09/2024 3:43 PM EDT Diabetes mellitus [...] 06/16/2023 6:59 PM EST Colon cancer screening ZZZ HISTORICAL HPV E6/E7 RFLX MARISEL 16 18/45 Routine 10/11/2020 4:21 PM EDT from Last 3 Months or Most Recently Relevant to Health Maintenance Results * CT Lung Screening Low dose (09/15/2024 1:17 PM EDT) Anatomical Region Laterality Modality Lung Computed Tomogra phy 09/15/2024 1:17 PM EDT Narrative 09/15/2024 1:39 PM EDT ? [facility] ?[address] ?[place] [address] ? CT Scan Report ? Signed ? Patient: Juve,Fatmata ?MR#: [id number] ?? [id number] ? : 1970 ?Acct:[id number] ? Age/Sex: 54 / F ?ADM Date: 09/15/24 ? Loc: HO.CT ? Attending Dr: Torri Gale PA-C ? Ordering Physician: Torri Gale PA-C ?? Date of Service: 09/15/24 ?? Procedure(s): CT lung screening ?? Accession Number(s): [id number] ? cc: Adilene Berman MD; Torri Gale PA-C ? Report Number: ?? [id number]: Total DLP = ?? 65.00 mGy-cm ?? [...] for CT CHEST LOW DOSE CANCER SCREENING ([id number]) ?? can be placed. ? Electronically signed by: ??Norris Em MD ??09/15/2024 01:36 PM EDT RP ? Dictated By: ?Norris Em MD ? Signed By: ?<Electronically signed by Norris Em MD in OV> ?09/15/241335 ? DD/ 16 ? TD/TT: 09/15/241316 ? Embedded Systems Software Engineer: ? Procedure Note Donotchelseyinterpreter, Image - 09/15/[address] [place] [address] [address] Scan Report Signed Patient: Fatmata AnMR#: [id number] : 1970Acct:[id number] Age/Sex: 54 / FADM Date: 09/15/24 Loc: HO.CT Attending Dr: Torri Gale PA-C Ordering Physician: Torri Gale PA-C Date of Service: 09/15/24 Procedure(s): CT lung screening Accession Number(s): [id number] cc: Adilene Berman MD; Torri Gale PA-C Report Number: [id number]: Total DLP = 65.00 mGy-cm EXAMINATION: CT [...] for CT CHEST LOW DOSE CANCER SCREENING ([id number]) can be placed. Electronically signed by: Norris Em MD 09/15/2024 01:36 PM EDT Dictated By: Norris Em MD Signed By: <Electronically signed by Norris Em MD in OV> 09/15/24 1336 DD/ 1317 TD/TT: 09/15/24 1317 Embedded Systems Software Engineer: [facility] External Provider IMG CT PROCEDURES Final Result * Albumin, Random Urine W/Creatinine (09/09/2024 3:43 PM EDT) Creatinine, Urine 128.88 mg/dL [facility] Microalbumin Urine 11.0 mg/L [facility] Microalbum Creatinine Ratio Ur 8.5 <30 ug/mg cr [facility] Comment:Albumin/Creatinine R atio Reference Ranges: Normal: < 30 ug/mg creatinine Microalbuminuria: 30 - 300 ug/mg creatinineClinical Albuminuria: > 300 ug/mg creatinine Urine (Urine, Random) 09/09/2024 3:43 PM EDT 09/09/2024 4:03 PM EDT us Adilene Greene MD LAB URINE ORDERABLES Final Result Performing Organization Address [facility]/ZIP Co de Phone Number [facility] [address] [place] [address] [phone] * (ABNORMAL) Lipid Panel, Standard (09/09/2024 3:43 PM EDT) Triglycerides 151(H) <150 mg/dL [facility] Comment:Desirable Triglyceri de: less than 150 mg/dLBorderline High Triglyceride 150-199 mg/dLHigh Triglyceride: 200-499 mg/dLVery High Triglyceride: greater than or equal to 5OO mg/dL Cholesterol 234(H) <200 mg/dL [facility] Comment:Desirable Cholestero l: less than 200 mg/dLBorderline High Cholesterol: 200-239 mg/dLHigh Cholesterol: greater than 239 mg/dL LDL Cholesterol Calculated 158(H) <100 mg/dL [facility] Comment:Desirable LDL: less than 100 mg/dLNear Optimal/Above Optimal LDL: 110- 129 mg/dLBorderline High LDL: 130-159 mg/dLHigh LDL: 160-189 mg/dLVery High LDL: greater than or equal to 190 mg/dL HDL Cholesterol 46 >40 mg/dL [facility] Comment:Desirable HDL: great er than 40 mg/dL Note: This HDL assay may give artificially low results in patients with liver disease. Blood Venous blood specimen / Unknown 09/09/2024 3:43 PM EDT 09/09/2024 4:01 PM EDT us Adilene Greene MD LAB BLOOD ORDERABLES Final Result Performing Organization Address [facility]/ZIP Co de Phone Number [facility] [address] [place] [address] [phone] * (ABNORMAL) Comprehensive Metabolic Panel (09/09/2024 3:43 PM EDT) Sodium 144 135 - 145 mmol/L [facility] Potassium 4.2 3.3 - 5.1 mmol/L [facility] Chloride 107 96 - 108 mmol/L [facility] Carbon Dioxide 30(H) 22 - 29 mmol/L [facility] Anion Gap 11(L) 12 - 20 [facility] Urea Nitrogen (BUN) 8(L) 9 - 16 mg/dL [facility] Creatinine, Serum 0.71 0.5 - 1.4 mg/dL [facility] Estimated Glomerular Filt Rate >60 [facility] Comment:Chronic Kidney Disea se: Estimated GFR < 60 mL/min/1.01a9Jcbsmc Kidney Disease: Estimated GFR < 15 mL/min/1.73m2 Glucose 79 60 - 115 mg/dL [facility] Calcium 9.7 8.4 - 10.2 mg/dL [facility] Bilirubin, Total 0.5 0.0 - 1.0 mg/dL [facility] Aspartate Amino Transferase 20 5 - 31 U/L [facility] Alanine Aminotransferase 17 0 - 31 U/L [facility] Total Protein 7.4 6.5 - 8.0 g/dL [facility] Albumin Level 4.5 3.5 - 5.0 g/dL [facility] Alkaline Phosphatase 93 39 - 117 U/L [facility] Blood Venous blood specimen / Unknown 09/09/2024 3:43 PM EDT 09/09/2024 4:01 PM EDT us Adilene Greene MD LAB BLOOD ORDERABLES Final Result [facility] [address] [place] [address] [phone] * POCT HGB A1C (09/09/2024 2:38 [...] specimen / Unknown 09/09/2024 2:36 PM EDT Adilene Greene MD POINT OF CARE TEST EN TER/EDIT ORDERABLES Final Result * BI US Breast Limited Right (07/09/2024) Anatomical Region Laterality Modality Breast Right Ultrasound us Elidia Faria NP IMG US PROCEDURES Final Result * Cologuard?? colon cancer screening (06/16/2023 6:59 PM EST) Cologuard Result Negative Negative 06/26/19 24 5:44 AM EST [facility] (CLIA #:[id number]) Comment: NEGATIVE TEST RESULT. A negative Cologuard [...] (Loulou Estrada al, N Engl J Med 2014;370(14):1286- 1297) The normal value (reference range) for this assay is negative. COLOGUARD RE-SCREENING RECOMMENDATION: Periodic colorectal cancer screening is an important part of preventive healthcare for asymptomatic individuals at average risk for colorectal cancer. ??Following a negative Cologuard result, the [place] Cancer Society and U.S. Multi-Society Task Force screening guidelines recommend a Cologuard re-screening interval of 3 years. References: [place] [employer] Guideline for Colorectal Cancer Screening: https://www.cancer.org/cancer/xasxn-fyefky-ooiidb/zomfjqrzq-psxbztzgq-kbgybvh/ac s-rec ommendations.html.; Beto DK, Gilda FARFAN, Keshia DonovanK, Colorectal Cancer Screening: Recommendations for Physicians and Patients from the U.S. Multi-Society Task Force on Colorectal Cancer Screening , Am J Gastroenterology 2017; 112:6934-9699. TEST DESCRIPTION: Composite algorithmic analysis of stool [...] Greco et al, N Engl J Med 2014;370(14):3377-7766.) Cologuard may produce a false negative or false positive result (no colorectal cancer or precancerous polyp present at colonoscopy follow up). A negative Cologuard test result does not guarantee the absence of CRC or advanced adenoma (pre-cancer). The current Cologuard screening interval is every 3 years. ([place] Cancer Society and U.S. Multi-Society Task Force). Cologuard performance data in a 10,000 patient pivotal study using colonoscopy as the reference method can be accessed at the following location: www.[employer].Datacastle/results. Additional description of the Cologuard test process, warnings and precautions can be found at www.colGorshrd.com. Stool specimen (specimen) 06/16/2023 6:59 PM EST 06/18/2023 2:46 PM EST us Adilene Greene MD LAB MOLECULAR DIAGNOS TICS ORDERABLES Final Result Performing Organization Address City/[facility]/ZIP Co de Phone Number [facility] (CLIA #:[id number]) [facility] [place] [phone], * HPV E6/E7 RFLX MARISEL 16 18/45 (10/11/2020 4:21 PM EDT) [facility] HPV mRNA E6/E7 rflx Not Detected Not Detected [facility] Comment: Methodology: Dry Cell Tester-Mediated Amplification This assay detects E6/E7 viral messenger RNA (mRNA) from 14 high-risk HPV types (16,18,31,33,35,39,45,51,52,56,58,59,66,68). The analytical performance characteristics of this assay have been determined by [employer]pod[employer]tv. The modifications have not been cleared or approved by the FDA. This assay has been validated pursuant to the CLIA regulations and is used for clinical purposes. For additional information, please refer to http://education.[employer].Datacastle/faq/YNE071e2 (This link if provided for information/ educational purposes only.) THIS TEST WAS PERFORMED AT: [facility] [employer] [address] [place] [address] [address] [place], [place] ??[phone] NANCI HANSON MD 10/11/2020 4:21 PM EDT Marvin Ojeda MD HISTORICAL/NON ORDERABLE LABS Fi nal Result Performing Organization Address City/[facility]/ZIP Co de Phone Number [facility] [address] [place] [address] from Last 3 Months or Most Recently Relevant to Health Maintenance Insurance [facility] C3 Care Teams Team Driver Relationship Specialty Start Date End Date Adilene Berman MD [address] [place] [phone] PCP - General Internal Medicine 07/11/22
--- OUTSIDE RECORDS SUMMARY | 2024-09-15 13:54 | XMS_ITS | Encounter Summary ---
Author Organization [employer] Address [address] [facility] 7t [place] [address] Care Team Providers Care Gut Cleaner Name Role Phone CorinnaHelen ZEV Primary Care Provider Adilene Lopez MD Primary Care Provide r Reason for Visit * Reason Comments Med Refill Encounter Details Date Type Department Care Team (Late st Contact Info) Description 05/09/2022 Refill [facility] MEDICINE [address] [place] [address] Sirisha Lew FNP [address] [place] [address] Overweight (Primary Dx); Depressive disorder Social History [...] documented as of this encounter Care Teams Gut Cleaner Relationship Specialty Start Date End Date Helen Weinstein FNP PCP - General Family Medicine 04/10/22 07/10/22 Adilene Berman MD [address] [place] [address] PCP - General Internal Medicine 07/11/22 documented as of this encounter
--- OUTSIDE RECORDS SUMMARY | 2024-09-15 13:54 | XMS_ITS | Encounter Summary ---
Author Organization [employer] Address [address] [facility] 7t [place] [address] Care Team Providers Care Hazmat Truck Driver Name Role Phone Adilene Berman MD Primary Care Provide r Reason for Visit * Reason Comments Med Refill Encounter Details Date Type Department Care Team ([facility] st Contact Info) Description 10/10/2023 Refill [facility] MEDICINE [address] [place], [place] [phone] Adilene Berman MD [address] [place], [place] [phone] Diabetes mellitus without complication ([facility]/HCC) Social History Tobacco Use Types Packs/Day [...] documented as of this encounter Care Teams Hazmat Truck Driver Relationship Specialty Start Date End Date Adilene Berman MD [address] [place] [phone] PCP - General Internal Medicine 07/11/22 documented as of this encounter
--- OUTSIDE RECORDS SUMMARY | 2024-09-15 13:55 | XMS_ITS | Encounter Summary ---
Author Organization [employer] Address 75 [facility] 7t [place] [address] Care Team Providers Care Pocket Setter Lockstitch Name Role Phone Adilene Berman MD Primary Care Provide r Reason for Visit * Reason Comments Med Refill Encounter Details Date Type Department Care Team (Late st Contact Info) Description 04/14/2023 Refill [facility] MED[facility] [address] [place] [address] Helen Weinstein, ZEV Diabetes mellitus without complication [...] Visit Diagnoses Diagnosis Diabetes mellitus without complication (CMS/[facility]) Type II or unspecified type diabetes mellitus without mention of complication, not stated as uncontrolled documented in this encounter Additional Health Concerns Assessment Noted Time PHQ-9 Depression Total Score: 15 022 1:49 PM EST documented as of this encounter Care Teams Pocket Setter Lockstitch Relationship Specialty Start Date End Date Adilene Berman MD [address] [place] [phone] PCP - General Internal Medicine 07/11/22 documented as of this encounter
--- OUTSIDE RECORDS SUMMARY | 2024-09-15 13:55 | XMS_ITS | Encounter Summary ---
Author Organization [employer] Address [address] [facility] 7t [place] [address] Care Team Providers Care Merchandise Execution Leader Name Role Phone Helen Weinstein Primary Care Provider Adilene Lopez MD Primary Care Provide r Reason for Visit * Reason Comments Med Change Request Encounter Details Date Type Department Care Team (Late st Contact Info) Description 06/10/2022 Refill [facility] MEDICINE [address] [place] [address] Helen Weinstein FNP Diabetes mellitus without complication [...] 06/12/2022 11:33 AM EST T/C placed to [facility] Pharmacy. [facility] pharmacy received a shipment of Trulicuty 3mg yesterday and pt's rx is filled and awaiting pick pulling machine tender. T/C to pt. Advised Trulicity awaiting pick pulling machine tender. Pt states she will pick it up today. * Telephone Encounter - ZEV Suarez - 06/11/2022 12:54 PM EST Can you please inform pt naiulicity is not available at [facility] pharmacy until next week's shipment, shecan [...] documented as of this encounter Care Teams Merchandise Execution Leader Relationship Specialty Start Date End Date Helen Weinstein FNP PCP - General Family Medicine 04/10/22 07/10/22 Adilene Berman MD [address] [place] [phone] PCP - General Internal Medicine 07/11/22 documented as of this encounter
--- OUTSIDE RECORDS SUMMARY | 2024-09-15 13:55 | XMS_ITS | Encounter Summary ---
Author Organization [employer] Address [address] [facility] 7t [place] [address] Care Team Providers Care Procurement Consultant Name Role Phone Adilene Berman MD Primary Care Provide r Reason for Visit * Reason Comments Med Refill Encounter Details Date Type Department Care Team ([facility] st Contact Info) Description 05/12/2023 Refill [facility] MEDICINE [address] [place], [place] [phone] Adilene Berman MD [address] [place] [address] Asthma, unspecified asthma severity, unspecified whether complicated, [...] documented as of this encounter Care Teams Procurement Consultant Relationship Specialty Start Date End Date Adilene Bemran MD [address] [place] [phone] PCP - General Internal Medicine 07/11/22 documented as of this encounter
--- OUTSIDE RECORDS SUMMARY | 2024-09-15 13:55 | XMS_ITS | Encounter Summary ---
Author Organization [employer] Address [address] [facility] 7t [place] [address] Care Team Providers Care Assembler Engine Name Role Phone Adilene Berman MD Primary Care Provide r Reason for Visit * Reason Comments Med Refill Encounter Details Date Type Department Care Team ([facility] st Contact Info) Description 04/14/2023 Refill [facility] MEDICINE [address] [place] [address] Adilene Berman MD [address] [place] [address] Benign essential hypertension; Asthma, unspecified asthma severity, [...] documented as of this encounter Care Teams Assembler Engine Relationship Specialty Start Date End Date Adilene Berman MD [address] [place] [address] PCP - General Internal Medicine 07/11/22 documented as of this encounter
== END 2024-09-15 12:51 | disposition home or self-care (01) ==
LOC: HO.CT 12:50
PROVIDERS: PCP Internal Medicine; Visit Provider Physician Assistant Medical
DX: Z12.2 Encounter for screening for malignant neoplasm of respiratory organs (principal); F17.210 Nicotine dependence, cigarettes, uncomplicated
CPT/HCPCS: 71271

== ENCOUNTER → 2024-09-15 12:52 | Outpatient (BNV) | payer MEDICAID, SELFPAY | PROVIDERS: PCP Internal Medicine; Visit Provider Radiology Diagnostic Radiology | DX: Z12.2 Encounter for screening for malignant neoplasm of respiratory organs (principal); F17.210 Nicotine dependence, cigarettes, uncomplicated | CPT/HCPCS: 71271 ==

== ENCOUNTER 2024-10-22 09:46 | Outpatient (REF) | payer MEDICAID, SELFPAY ==
--- NOTE | 2024-10-22 09:51 | PFT_ITS ---
Flows: FEV1: 76 % of predicted at 2.05 L FVC: 78 % of predicted at 2.63 L FEV1/FVC: 78 % Bronchodilator response: Absent Volumes: Total lung capacity: 77 % of predicted at 4.00 L Residual volume: 93 % of predicted at 1.46 L Slow vital capacity: 70 % of predicted at 2.54 L Expiratory reserve volume: 81 % of predicted at 0.78 L Diffusion capacity: Normal Impression: Moderate restrictive ventilatory defect with no bronchodilator response. MTDD
--- OUTSIDE RECORDS SUMMARY | 2024-10-22 10:17 | XMS_ITS | Clinical Summary ---
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 Do not swallow. 1 each 11 09/10/19 25 026 Active nicotine polacrilex (Commit) 4 MG lozengeIndicati ons:Smoker DISSOLVE 1 LOZENGE IN THE MOUTH EVERY 2 HOURS NEEDED FOR SMOKING CESSATION 144 lozenge 09/30/19 25 Active clotrimazole-be tamethasone (Lotrisone) cream APPLY TOPICALLY 2 TIMES DAILY FOR 28 DAYS. 09/07/19 25 Active hydrOXYzine HCl (Atarax) 25 MG tablet TAKE 1 TABLET BY MOUTH THREE TIMES A DAY NEEDED FOR ANXIETY/PANIC 08/11/19 25 Active dextran 70-hypromellose (artificial tears) 0.1-0.3 % ophthalmic solution Administer 1 drop into both eyes if needed in the morning, at noon, and at bedtime for dry eyes. 15 mL 5 10/04/19 25 026 Active nicotine polacrilex (Nicotine Mini) 4 MG lozengeIndicati ons:Smoker Dissolve 1 lozenge (4 mg) in the mouth every 2 (two) hours if needed for smoking cessation. 100 lozenge 09/10/19 25 025 Discontinued Active Problems Problem Noted Date Diagnosed Date [...] EST): Referral [place] to [facility] Vitamin D insufficiency 04/19/2022 Overweight 04/18/2022 BMI [...] Encounters Date Type Department Care Team Description 10/11/2024 Outside Procedure [facility] OPTOMETRY [address] [place] [address] Lina Bolden, OD Presbyopia (Primary Dx) 10/06/2024 3:45 PM EDT Office Visit [facility] OPTOMETRY [address] [place] [address] Roe Boldenn, OD Myopia of both eyes (Primary Dx) 10/04/2024 Refill [facility] OPTOMETRY [address] [place] [address] Lina Bolden, OD 09/28/2024 Refill [facility] MEDICINE [address] [place] [address] Adilene Berman MD Smoker 09/15/2024 Orders Only [facility] External Provider, [facility] 09/13/2024 Telephone [facility] MEDICINE [address] [place] [address] Adilene Berman MD AUGUST RECALL 09/09/2024 3:15 PM EDT Office Visit [facility] MEDICINE [address] [place] [address] Adilene Berman MD Diabetes mellitus without complication ([facility]/HCC); Primary hypertension; Benign essential hypertension; Mild intermittent asthma without complication; Smoker 09/09/2024 Travel 09/07/2024 1:30 PM EDT Office Visit [facility] OPTOMETRY [address] [place] [address] Yuan, Lina, OD Diabetes type 2, 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) (Primary Dx); Dry eye syndrome of both eyes; Presbyopia 09/07/2024 Telephone [facility] MEDICINE [address] [place] [address] Adilene Berman MD Chart prep 09/07/2024 Travel 09/02/2024 Patient Outreach [facility] MEDICINE [address] [place] [address] Adilene Berman MD Pre-visit Planning (SDOH screening negative and Tobacco screening positive) 08/04/2024 Refill [facility] MEDICINE [address] [place] [address] Jacki Gonzalez NP Mild intermittent asthma without complication 08/04/2024 Refill [facility] MEDICINE [address] [place] [address] Adilene Berman MD Rash; Mild intermittent asthma without complication 07/23/2024 Population Health Risk Score [facility] () [address] [phone] Provider, Population Health Generic from Last 3 Months Immunizations Immunization Administration Dates Next Due Influenza injectable quadriv alent preservative free 04/12/2022,06/04/2019,07/28/2018 Influenza, IIV3, injectable 04/02/2011 Influenza, Split (incl. radha fied surface antigen) 01/14/2013,01/09/2012 TD (adult), 2 Lf tetanus tox oid, preservative free, adsorbed 06/16/1998 Tdap 01/14/2013 Zoster, Recombinant 09/09/2024 Social History Tobacco Use Types Packs/Day Years Used Date Smoking Tobacco: Every Day Cigarettes 1.5 39.4 Started: 05/12/1985 Passive Smoke Exposure: Current Smokeless [...] FOBT 1970 HIV Screening 1970 Sigmoidoscopy 1970 Disability Screening 1971 Alcohol/Substance Use Screening 1983 Hepatitis C Screening 07/20/1989 Hepatitis B Vaccines (1 of 3 - 19+ 3-dose series) 07/20/1990 Pneumococcal Vaccine: 50+ Years (1 of 2 - PCV) 07/20/1990 Pap Smear 07/20/1992 DTaP/Tdap/Td Vaccines (2 - Td or Tdap) 01/14/2023 01/14/2013, 06/16/1998 COVID-19 Vaccine ( - season) 2024 Diabetes: Foot Exam 11/04/2024 11/05/2023, 11/05/2023, 11/05/2023, Additional history exists Zoster Vaccines (2 of 2) 11/04/2024 09/09/2024 Influenza Vaccine (Season Ended) 2025 04/12/2022, 06/04/2019, 07/28/2018, Additional history exists Depression Screening 03/11/2025 03/11/2024, 03/11/20 Diabetes: Hemoglobin A1C 03/12/2025 025, 03/11/2024, 11/05/2023, Additional history exists Mammogram 07/09/2025 07/09/2024, 06/13, 07/09/2024 SDOH Screening 09/02/2025 09/02/2024 Diabetes: Urine Protein Screening 09/09/2025 09/09/2024, 05/02/2023 Lipid Panel 09/09/2025 09/09/2024, 04/12, 04/15/2022, Additional history exists Lung Cancer Screening 09/15/2025 09/15/2024 Tobacco Screening 09/29/2025 09/29/2024 Cervical Cancer Screening 10/11/2025 HPV/Cotest 10/11/2025 10/11/2020, 06/0 06/2020, 04/02/2017 Colorectal Cancer Screening 06/16/2026 FIT DNA/Cologuard [...] 06/16/2023 6:59 PM EST Colon cancer screening [facility] HISTORICAL HPV E6/E7 RFLX MARISEL 16 18/45 Routine 10/11/2020 4:21 PM EDT from Last 3 Months or Most Recently Relevant to Health Maintenance Results * CT Lung Screening Low dose (09/15/2024 1:17 PM EDT) Anatomical Region Laterality Modality Lung Computed Tomogra phy 09/15/2024 1:17 PM EDT Narrative 09/15/2024 1:39 PM EDT ? [facility] ?[address] ?[place] [address] ? CT Scan Report ? Signed ? Patient: Fatmata An ?MR#: [id number] ?? [id number] ? : 1970 ?Acct:[id number] ? Age/Sex: 54 / F ?ADM Date: 09/15/24 ? Loc: HO.CT ? Attending Dr: Torri Gale PA-C ? Ordering Physician: Torri Gale PA-C ?? Date of Service: 09/15/24 ?? Procedure(s): CT lung screening ?? Accession Number(s): [id number] ? cc: Adilene Berman MD; Torri Gale PA-C ? Report Number: ?? [id number]: Total DLP = ?? 65.00 mGy-cm ?? [...] for CT CHEST LOW DOSE CANCER SCREENING ([id number]) ?? can be placed. ? Electronically signed by: ??Norris Em MD ??09/15/2024 01:36 PM EDT RP ? Dictated By: ?Norris Em MD ? Signed By: ?<Electronically signed by Norris Em MD in OV> ?09/15/24 1336 ? DD/ 1317 ? TD/TT: 09/15/24 1317 ? 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 Procedure Note Donlatoya, Image - 09/15/[address] [place] [address] [address] Scan Report Signed Patient: Fatmata AnMR#: [id number] : 1970Acct:[id number] Age/Sex: 54 / FADM Date: 09/15/24 Loc: .CT Attending Dr: Torri Gale PA-C Ordering Physician: Torri Gale PA-C Date of Service: 09/15/24 Procedure(s): CT lung screening Accession Number(s): [id number] cc: Adilene Berman MD; Torri Gale PA-C Report Number: [id number]: Total DLP = 65.00 mGy-cm EXAMINATION: CT [...] for CT CHEST LOW DOSE CANCER SCREENING ([id number]) can be placed. 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: us [facility] External Provider IMG CT PROCEDURES Final Result * Albumin, Random Urine W/Creatinine (09/09/2024 3:43 PM EDT) Creatinine, Urine 128.88 mg/dL [facility] Microalbumin Urine 11.0 mg/L [facility] Microalbum Creatinine Ratio Ur 8.5 <30 ug/mg cr [facility] Comment:Albumin/Creatinine R atio Reference Ranges: Normal: < 30 ug/mg creatinine Microalbuminuria: 30 - 300 ug/mg creatinineClinical Albuminuria: > 300 ug/mg creatinine Urine (Urine, Random) 09/09/2024 3:43 PM EDT 09/09/2024 4:03 PM EDT Adilene Greene MD LAB URINE ORDERABLES Final Result Performing Organization Address City/State/[facility] Co de Phone Number [facility] [address] [place] [phone] * (ABNORMAL) Lipid Panel, Standard (09/09/2024 3:43 PM EDT) Triglycerides 151(H) <150 mg/dL [facility] Comment:Desirable Triglyceri de: less than 150 mg/dLBorderline High Triglyceride 150-199 mg/dLHigh Triglyceride: 200-499 mg/dLVery High Triglyceride: greater than or equal to 5OO mg/dL Cholesterol 234(H) <200 mg/dL [facility] Comment:Desirable Cholestero l: less than 200 mg/dLBorderline High Cholesterol: 200-239 mg/dLHigh Cholesterol: greater than 239 mg/dL LDL Cholesterol Calculated 158(H) <100 mg/dL [facility] Comment:Desirable LDL: less than 100 mg/dLNear Optimal/Above Optimal LDL: 110- 129 mg/dLBorderline High LDL: 130-159 mg/dLHigh LDL: 160-189 mg/dLVery High LDL: greater than or equal to 190 mg/dL HDL Cholesterol 46 >40 mg/dL [facility] Comment:Desirable HDL: great er than 40 mg/dL Note: This HDL assay may give artificially low results in patients with liver disease. Blood Venous blood specimen / Unknown 09/09/2024 3:43 PM EDT 09/09/2024 4:01 PM EDT Adilene Greene MD LAB BLOOD ORDERABLES Final Result [facility] [address] [place] [address] [phone] * (ABNORMAL) Comprehensive Metabolic Panel (09/09/2024 3:43 PM EDT) Sodium 144 135 - 145 mmol/L [facility] Potassium 4.2 3.3 - 5.1 mmol/L [facility] Chloride 107 96 - 108 mmol/L [facility] Carbon Dioxide 30(H) 22 - 29 mmol/L [facility] Anion Gap 11(L) 12 - 20 [facility] Urea Nitrogen (BUN) 8(L) 9 - 16 mg/dL [facility] Creatinine, Serum 0.71 0.5 - 1.4 mg/dL [facility] Estimated Glomerular Filt Rate >60 [facility] Comment:Chronic Kidney Disea se: Estimated GFR < 60 mL/min/1.90l7Nvbjwm Kidney Disease: Estimated GFR < 15 mL/min/1.73m2 Glucose 79 60 - 115 mg/dL [facility] Calcium 9.7 8.4 - 10.2 mg/dL [facility] Bilirubin, Total 0.5 0.0 - 1.0 mg/dL [facility] Aspartate Amino Transferase 20 5 - 31 U/L [facility] Alanine Aminotransferase 17 0 - 31 U/L [facility] Total Protein 7.4 6.5 - 8.0 g/dL [facility] Albumin Level 4.5 3.5 - 5.0 g/dL [facility] Alkaline Phosphatase 93 39 - 117 U/L [facility] Blood Venous blood specimen / Unknown 09/09/2024 3:43 PM EDT 09/09/2024 4:01 PM EDT Result [facility] Adilene Greene MD LAB BLOOD ORDERABLES Final Result [facility] [address] [place] [phone] [phone] * POCT HGB A1C (09/09/2024 2:38 PM EDT) Pathologist [facility] Hemoglobin A1C 5.4 4.0 - 6.0 % QC Media Lot # [id number] Lot# Expiration Date [id number] Blood 09/09/2024 2:38 PM EDT Result [facility] Adilene Greene MD POINT OF CARE TEST EN TER/EDIT ORDERABLES Final Result * POCT Glucose (09/09/2024 2:36 PM EDT) Pathologist [facility] Glucose Blood, POC 123 60 - 200 mg/dL [employer] Lot # [id number] Lot# Expiration Date 101,425 Blood Capillary blood specimen / Unknown 09/09/2024 2:36 PM EDT Result [facility] Adilene Greene MD POINT OF CARE TEST EN TER/EDIT ORDERABLES Final Result * BI US Breast Limited Right (07/09/2024) Anatomical Region Laterality Modality Breast Right Ultrasound Elidia Faria NP IMG US PROCEDURES Final Result * Cologuard?? colon cancer screening (06/16/2023 6:59 PM EST) Pathologist [facility] Cologuard Result Negative Negative 06/26/19 24 5:44 AM EST [facility] (CLIA #:[id number]) Comment: NEGATIVE TEST RESULT. A negative Cologuard [...] cancer. ??Following a negative Cologuard result, the [employer] and U.S. Multi-Society Task Force screening guidelines recommend a Cologuard re-screening interval of 3 years. References: [employer] Guideline for Colorectal Cancer Screening: https://www.cancer.org/cancer/ytvol-wmfmxj-vzmolu/lgujjgdwf-dynxjqaos-fknawdy/ac s-rec ommendations.html.; Beto DK, Gilda CR, Keshia DonovanK, Colorectal Cancer Screening: Recommendations for Physicians and Patients from the U.S. Multi-Society Task Force on Colorectal Cancer Screening , Am J Gastroenterology 2017; 112:5096-3474. TEST DESCRIPTION: Composite algorithmic analysis of stool [...] (Loulou Estrada al, N Engl J Med 2014;370(14):1437-5849.) Cologuard may produce a false negative or false positive result (no colorectal cancer or precancerous polyp present at colonoscopy follow up). A negative Cologuard test result does not guarantee the absence of CRC or advanced adenoma (pre-cancer). The current Cologuard screening interval is every 3 years. ([employer] and U.S. Multi-Society Task Force). Cologuard performance data in a 10,000 patient pivotal study using colonoscopy as the reference method can be accessed at the following location: www.[employer]/results. Additional description of the Cologuard test process, warnings and precautions can be found at www.[employer].com. Stool specimen (specimen) 06/16/2023 6:59 PM EST 06/18/2023 2:46 PM EST us Adilene Greene MD LAB MOLECULAR DIAGNOS TICS ORDERABLES Final Result [facility] (CLIA #:[id number]) [place] [address], * HPV E6/E7 RFLX MARISEL 16 18/45 (10/11/2020 4:21 PM EDT) HPV mRNA E6/E7 rflx Not Detected Not Detected [facility] Comment: Methodology: Corduroy Brusher Operator-Mediated Amplification This assay detects E6/E7 viral messenger RNA (mRNA) from 14 high-risk HPV types (16,18,31,33,35,39,45,51,52,56,58,59,66,68). The analytical performance characteristics of this assay have been determined by [employer]. The modifications have not been cleared or approved by the FDA. This assay has been validated pursuant to the CLIA regulations and is used for clinical purposes. 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
[2024-10-22 10:29] VITALS: PULSE 66; O2SAT 97
== END 2024-10-22 09:47 | disposition home or self-care (01) ==
LOC: HO.RESP 09:46
PROVIDERS: PCP Internal Medicine; Visit Provider Internal Medicine
DX: F17.200 Nicotine dependence, unspecified, uncomplicated (principal)
CPT/HCPCS: 94010; 94640; 94727; 94729

== ENCOUNTER → 2024-10-22 09:51 | Outpatient (BNV) | payer MEDICAID, SELFPAY | PROVIDERS: PCP Internal Medicine; Visit Provider Internal Medicine Pulmonary Disease | DX: R05.3 Chronic cough (principal) | CPT/HCPCS: 94060; 94727; 94729 ==